=== PATIENT | female | born 1950 | race Caucasian/White ===

== ENCOUNTER → 2017-04-14 08:47 | Outpatient (CLI) | payer MEDICARE, OTHER | END | disposition home or self-care (01) | LOC: D.MRI 08:47 | DX: M51.36 Other intervertebral disc degeneration, lumbar region (principal) ==

== ENCOUNTER 2017-08-15 18:03 | Inpatient (IN) | payer MEDICARE, OTHER ==
[~2017-08-15] VITALS: Ht 160 cm; Wt 112.5 kg
--- NOTE | ~2017-08-15 | HP ---
PATIENT: SOFÍA COREAS MEDICAL RECORD: [id number] ACCOUNT: [id number] LOCATION:D.MS [id number] : 52 ADMISSION DATE: 08/18/17 HISTORY AND PHYSICAL EXAMINATION DATE OF ADMISSION: 08/18/2017 CHIEF COMPLAINT: Shortness of breath and cough. HISTORY OF PRESENT ILLNESS: This is a 67-year-old female who went to [facility] on Friday, 08/15 for cough, congestion. She had a chest x-ray that somehow was very abnormal. She was sent to [facility] for further treatment. Chest x-ray there was read by the radiologist is showing no acute abnormality seen. She was given albuterol updraft. She had blood work done showing essentially normal CBC and basic metabolic panel. Her glucose was elevated. She was given a shot in the ER. Sugar was over 400. She was given breathing treatments. Apparently at [facility], she was given a dose of ampicillin as well as a dose of steroids. She was released from [facility] and has been trying to take care of herself since then, but she presented today with O2 sat of 81% on room air. She does not have a history of asthma or emphysema, but with her ongoing problem she is admitted for hypoxia, acute bronchitis, and poorly controlled diabetes. PAST MEDICAL AND SURGICAL HISTORY: She has type 2 diabetes, hyperlipidemia, hypertension, history of obesity, and chronic lumbar pain. She has had a hysterectomy for noncancerous reasons, tonsillectomy, and gastric bypass surgery years ago. She had a colonoscopy on 07/26/[address] Murphy. ALLERGIES: AMBIEN. HABITS: She is a former smoker. Drinks wine only on occasion. No illicit drug work. SOCIAL HISTORY: She is a retired RN, lives alone, . FAMILY HISTORY: Father at 76 of COPD complications. Mother at 61 of ALS complications. Sister at 32 of cervical cancer. HOME MEDICATIONS: Lovastatin 20 mg at bedtime, metformin 1000 mg twice a day, citalopram 40 mg once a day, benazepril 40 mg once a day. PHYSICAL EXAMINATION: VITAL SIGNS: Blood pressure 100/60. GENERAL: She is morbidly obese. HEENT: Grossly within normal limits. NECK: Supple. No JVD or bruit. HEART: Regular rate and rhythm. LUNGS: Diminished breath sounds with occasional wheeze. ABDOMEN: Soft, obese, and nontender. EXTREMITIES: No pitting edema. ASSESSMENT: 1. Acute bronchitis. 2. Hypoxia. 3. Uncontrolled diabetes. HISTORY AND PHYSICAL [id number] SOFÍA COREAS PLAN: We will admit, give updrafts and oxygen. We will start IV Solu-Medrol. Check fingerstick blood sugar a.c. and h.s. Start insulin sliding scale. Other tests and procedures as warranted. TRANSINT:[id number] Voice Confirmation ID: [id number] DOCUMENT ID: [id number] ALEXUS ALANIS MD at 1842 CC: [id number] DICTATION DATE: 08/18/17 1442 RETAIL ASSOCIATE: 08/18/17 1544 ADM IN [facility] [address] [place] [address]
[~2017-08-15 18:03] MED LIST: BAYER CHEWABLE81 MG PO; CELEXA40 MG PO; GLUCOPHAGE1000 MG PO; IBUPROFEN800 MG PO; LOTENSIN40 MG PO; LOVASTATIN20 MG PO; MULTIPLE VITAMI1 TA1 PO; PROBIOTIC1 EAC1 PO; RESTORIL15 MG PO
[2017-08-15 20:20] LABS: ALBUMIN 3.4 g/dL (3.4-5.0); ALKALINE PHOSPHATASE 85 U/L (46-116); ALT (SGPT) 27 U/L (10-68); BILIRUBIN - TOTAL 0.23 mg/dL (0.2-1.3); CALC OSMOLALITY 286 mosm/kg (275-300); CALCIUM 9.2 mg/dL (8.5-10.1); CARBON DIOXIDE 27.3 mmol/L (21.0-32.0); CHLORIDE - SERUM 99 mmol/L (98-107); CREATININE - SERUM 1.2 mg/dL (0.6-1.3); POTASSIUM - SERUM 4.8 mmol/L (3.5-5.1); PROTEIN - SERUM 6.6 g/dL (6.4-8.2); SODIUM 135 mmol/L (136-145); UREA NITROGEN 21 mg/dL (7-18); eGFR NON AFRICAN AMERICAN 48 mL/min (90-120)
[2017-08-15 20:21] LABS: GLUCOSE 354 mg/dL (74-106)
[2017-08-15 20:23] LABS: BASOPHILS 0.3 % (0-2); EOSINOPHILS 1.9 % (0-7); HEMOGLOBIN 11.1 g/dL (12-16); IMMATURE GRANULOCYTES 0.2 % (0-5); LYMPHOCYTES 7.8 % (15-50); MCH 26.1 pg (26.0-34.0); MCHC 29.2 g/dL (31.0-37.0); MCV 89.2 fL (80.0-100.0); MEAN PLATELET VOLUME 10.5 fL (7.4-10.4); MONOCYTES 12.4 % (2-11); NEUTROPHILS 77.4 % (40-80); PLATELET COUNT 234 10x3/uL (130-400); RBC 4.26 10x6/uL (4.00-5.40); RDW 14.9 % (11.5-14.5); WBC 10.5 10x3/uL (4.8-10.8)
[2017-08-15 20:29] LABS: TROPONIN-I < 0.017 ng/mL (0.000-0.060)
[2017-08-18 15:15] VITALS: BP 112/65; BMI 44.0
[2017-08-18 22:34] VITALS: BP 109/53
[2017-08-19 04:48] VITALS: BP 116/58
[2017-08-19 08:43] VITALS: BP 123/51
[2017-08-19 12:45] VITALS: BP 112/55
[2017-08-19 13:15] VITALS: Ht 160 cm; Wt 112.5 kg
[2017-08-19 21:30] VITALS: BP 129/76
[2017-08-20 01:13] VITALS: BP 138/64
[2017-08-20 05:25] VITALS: BP 125/60
[2017-08-20 07:58] VITALS: BP 112/66
[2017-08-20 12:26] VITALS: BP 114/60
[2017-08-20 15:56] VITALS: BP 145/73
[2017-08-21] VITALS (7 sets, daily range): BP systolic 115–150; BP diastolic 63–78
[2017-08-22 01:30] VITALS: BP 125/69
[2017-08-22 05:21] VITALS: BP 137/59
[2017-08-22 05:57] LABS: BASOPHILS 0.2 % (0-2); EOSINOPHILS 0.2 % (0-7); HEMATOCRIT 37.2 % (36.0-48.0); IMMATURE GRANULOCYTES 5.1 % (0-5); MCH 25.5 pg (26.0-34.0); MCHC 29.6 g/dL (31.0-37.0); MCV 86.3 fL (80.0-100.0); MEAN PLATELET VOLUME 10.1 fL (7.4-10.4); MONOCYTES 10.4 % (2-11); NEUTROPHILS 48.1 % (40-80); PLATELET COUNT 273 10x3/uL (130-400); RBC 4.31 10x6/uL (4.00-5.40); RDW 15.1 % (11.5-14.5); WBC 12.8 10x3/uL (4.8-10.8)
[2017-08-22 06:18] LABS: ALBUMIN 2.8 g/dL (3.4-5.0); ANION GAP 10.6 mmol/L (8-16); BILIRUBIN - TOTAL 0.2 mg/dL (0.2-1.3); CARBON DIOXIDE 33.8 mmol/L (21.0-32.0); CREATININE - SERUM 1.1 mg/dL (0.6-1.3); POTASSIUM - SERUM 4.4 mmol/L (3.5-5.1); PROTEIN - SERUM 6.3 g/dL (6.4-8.2)
[2017-08-22 08:07] VITALS: BP 117/66
[2017-08-22 12:17] VITALS: BP 112/66
[2017-08-22 15:46] VITALS: BP 131/70
[2017-08-22 21:41] VITALS: BP 116/59
[2017-08-23 00:40] VITALS: BP 119/76
[2017-08-23 08:28] LABS: BASOPHILS 0.3 % (0-2); EOSINOPHILS 0.5 % (0-7); HEMATOCRIT 39.4 % (36.0-48.0); HEMOGLOBIN 11.7 g/dL (12-16); IMMATURE GRANULOCYTES 5.6 % (0-5); LYMPHOCYTES 36.3 % (15-50); MCH 25.7 pg (26.0-34.0); MCHC 29.7 g/dL (31.0-37.0); MCV 86.6 fL (80.0-100.0); MEAN PLATELET VOLUME 9.7 fL (7.4-10.4); MONOCYTES 8.8 % (2-11); NEUTROPHILS 48.5 % (40-80); PLATELET COUNT 278 10x3/uL (130-400); RBC 4.55 10x6/uL (4.00-5.40); RDW 15.1 % (11.5-14.5); WBC 11.9 10x3/uL (4.8-10.8)
[2017-08-23 08:48] LABS: ALBUMIN 2.9 g/dL (3.4-5.0); ANION GAP 11.8 mmol/L (8-16); BILIRUBIN - TOTAL 0.32 mg/dL (0.2-1.3); CALCIUM 9.1 mg/dL (8.5-10.1); CARBON DIOXIDE 33.5 mmol/L (21.0-32.0); CREATININE - SERUM 1.1 mg/dL (0.6-1.3); MAGNESIUM - SERUM 2.1 mg/dL (1.8-2.4); PHOSPHOROUS 4.8 mg/dL (2.5-4.9); POTASSIUM - SERUM 4.3 mmol/L (3.5-5.1); PROTEIN - SERUM 6.5 g/dL (6.4-8.2)
[2017-08-23 09:46] VITALS: BP 128/66
[2017-08-23 17:05] VITALS: BP 126/76
[2017-08-23 22:02] VITALS: BP 128/66
[2017-08-24 06:35] LABS: BASOPHILS 0.2 % (0-2); EOSINOPHILS 2.3 % (0-7); HEMATOCRIT 38.3 % (36.0-48.0); HEMOGLOBIN 11.3 g/dL (12-16); IMMATURE GRANULOCYTES 7.1 % (0-5); LYMPHOCYTES 38.9 % (15-50); MCH 25.8 pg (26.0-34.0); MCHC 29.5 g/dL (31.0-37.0); MCV 87.4 fL (80.0-100.0); MEAN PLATELET VOLUME 10.3 fL (7.4-10.4); MONOCYTES 8.5 % (2-11); PLATELET COUNT 250 10x3/uL (130-400); RBC 4.38 10x6/uL (4.00-5.40); WBC 11.1 10x3/uL (4.8-10.8)
[2017-08-24 07:09] LABS: ALBUMIN 2.8 g/dL (3.4-5.0); ANION GAP 11.3 mmol/L (8-16); BILIRUBIN - TOTAL 0.3 mg/dL (0.2-1.3); CALCIUM 8.7 mg/dL (8.5-10.1); CARBON DIOXIDE 31.1 mmol/L (21.0-32.0); MAGNESIUM - SERUM 1.9 mg/dL (1.8-2.4); PHOSPHOROUS 4.3 mg/dL (2.5-4.9); POTASSIUM - SERUM 4.4 mmol/L (3.5-5.1); PROTEIN - SERUM 5.7 g/dL (6.4-8.2)
[2017-08-24 09:07] VITALS: BP 132/75
[2017-08-24 12:40] VITALS: BP 126/57
[2017-08-24 17:09] VITALS: BP 106/72
[2017-08-24 21:40] VITALS: BP 139/83
[2017-08-25 00:56] VITALS: BP 125/68
[2017-08-25 04:23] VITALS: BP 106/56
[2017-08-25 08:15] VITALS: BP 106/66
[2017-08-25 12:53] VITALS: BP 112/52
[2017-08-25] MEDS ORDERED: ACTOS30 MG PO (14:06)
[2017-08-25 16:02] VITALS: BP 130/75
== END 2017-08-25 16:58 | disposition home or self-care (01) | DRG 189 ==
LOC: D.ER 18:03 → D.MS 08-18 14:49
PROVIDERS: Family Medicine; Internal Medicine Pulmonary Disease; Physician Assistant Medical
DX: J96.01 Acute respiratory failure with hypoxia (principal); J11.1 Influenza due to unidentified influenza virus with other respiratory manifestations; J20.9 Acute bronchitis, unspecified; I10 Essential (primary) hypertension; E11.65 Type 2 diabetes mellitus with hyperglycemia; B37.9 Candidiasis, unspecified

== ENCOUNTER → 2017-11-10 08:39 | Outpatient (CLI) | payer MEDICARE, OTHER ==
[2017-08-19 13:15] VITALS: BMI 43.9
[~2017-11-10 08:39] MED LIST changes: +ACTOS30 MG PO
== END | disposition home or self-care (01) ==
LOC: D.RT 08:39
DX: R06.02 Shortness of breath (principal)

== ENCOUNTER → 2017-11-18 13:51 | Outpatient (CLI) | payer MEDICARE, OTHER ==
[2017-08-19 13:15] VITALS: BMI 43.9
[2017-11-18 20:27] LABS: BASOPHILS 0.4 % (0-2); EOSINOPHILS 2.8 % (0-7); HEMATOCRIT 39.6 % (36.0-48.0); HEMOGLOBIN 11.9 g/dL (12-16); IMMATURE GRANULOCYTES 0.4 % (0-5); LYMPHOCYTES 29.4 % (15-50); MCH 26.4 pg (26.0-34.0); MCHC 30.1 g/dL (31.0-37.0); MCV 87.8 fL (80.0-100.0); MEAN PLATELET VOLUME 11.8 fL (7.4-10.4); MONOCYTES 11.5 % (2-11); NEUTROPHILS 55.5 % (40-80); PLATELET COUNT 303 10x3/uL (130-400); RBC 4.51 10x6/uL (4.00-5.40); RDW 17.1 % (11.5-14.5); WBC 7.2 10x3/uL (4.8-10.8)
== END | disposition home or self-care (01) ==
LOC: D.LABREF 13:51
PROVIDERS: Internal Medicine Pulmonary Disease
DX: R06.09 Other forms of dyspnea (principal)

== ENCOUNTER → 2018-08-10 08:03 | Outpatient (CLI) | payer MEDICARE, OTHER ==
[2017-08-19 13:15] VITALS: BMI 43.9
== END | disposition home or self-care (01) ==
LOC: D.MRI 08:00
DX: M51.36 Other intervertebral disc degeneration, lumbar region (principal)

== ENCOUNTER → 2018-08-21 08:12 | Outpatient (CLI) | payer MEDICARE, OTHER ==
[2017-08-19 13:15] VITALS: BMI 43.9
== END | disposition home or self-care (01) ==
LOC: D.MRI 08:12
DX: S22.089A Unspecified fracture of T11-T12 vertebra, initial encounter for closed fracture (principal); X58.XXXA Exposure to other specified factors, initial encounter

== ENCOUNTER → 2018-09-11 08:12 | Outpatient (CLI) | payer MEDICARE, OTHER ==
[2017-08-19 13:15] VITALS: BMI 43.9
--- NOTE | ~2018-09-11 | HEMODYNAMI ---
PATIENT:SOFÍA COREAS MEDICAL RECORD: [id number] : 52 LOCATION:ANNA MARIE ADMISSION DATE: 09/11/18 Generatedon:09/11/20189:49 Patient name: SOFÍA COREAS Patient #: [id number] SSN: : Date of study: 09/11/2018 Page: Of Hemodynamic Procedure Report Patient Data Patient Demographics Procedure consent was obtained First Name: SOFÍA Gender: Female Last Name: LYUDMILA : 1950 Patient #: [id number] Age: 68 year(s) Race: Unknown Additional ID: [id number] Contact details [address]: [address] [place] [address] State: [place] City: [place] Zip code: [address] Admission Admission Data Admission Date: 09/11/2018 Admission Time: 8:12 Procedure Procedure Types Cath Procedure Peripheral Cath Diagnostic Procedure Strike Warfare/Missile Systems Officer Peripheral Procedures Miscellaneous Epidural Steroid Injection Procedure Description Procedure Date Procedure Date: 09/11/2018 Procedure Start Time: 9:28 Procedure Staff Name Function Jhoan Milton MD Performing Physician Rosanna Soto RT Roof Truss Detailer Amanda Mckenzie RN Nurse Procedure Data Cath Procedure Fluoroscopy Diagnostic fluoroscopy Total fluoroscopy Time: 0.1 time: 0.1 min min Diagnostic fluoroscopy Total fluoroscopy dose: 2 dose: 2 mGy mGy Hemodynamics Rest Pre Cath Intra NCS Post Cath Procedure Log Time Note 9:08:18 KIT EPIDURAL CATHETERIZATION opened to sterile field. 9:08:26 Time tracking: Regular hours (M-F 7:00 - 5:00) 9:08:50 Patient received from Other to IR Alert and oriented. Tansferred to table in Prone position. 9:08:54 Signed procedure consent form obtained from patient. 9:08:58 Family in waiting room. 9:10:20 Is patient on blood thinner?Yes, 81MG ASA, OFF FOR 3 DAYS 9:11:02 Bilateral Lumbar was prepped with betadine and draped in sterile fashion. 9:11:05 9:28:06 Physician arrived 9:28:07 --------ALL STOP TIME OUT------ 9:28:08 Final Timeout: patient, procedure, and site verified with staff and physician. All members of the team are in agreement. 9:28:15 Procedure started. 9:28:15 Full Disclosure recording started 9:43:10 30MG/5ML CELESTONE INJECTED INTO SPINE FOR PAIN 9:43:14 Procedure ended.(Physican Out) 9:48:45 Fluoroscopy time 00.10 minutes. 9:48:51 Fluoroscopy dose: 2 mGy 9:48:51 Flurop Dose total: 2 9:48:58 Procedure and supply charges have been captured, reviewed, submitted and are correct. Device Usage Item Name Manufacture Quantity Catalog Hospital Part Current Minima l Lot# / Number Charge Number Stock Stock Serial# Code KIT EPIDURAL Teleflex 1 [id number] CATHETERIZATION Signature Audit Sinking Spring Stage Time Signature Unsigned Intra-Procedure 09/11/2018 Rosanna Soto 9:49:23 AM RT(R) [facility] [address] [place] [address]
== END | disposition home or self-care (01) ==
LOC: D.RAD 08:12
DX: M54.5 Low back pain (principal); S22.089A Unspecified fracture of T11-T12 vertebra, initial encounter for closed fracture; X58.XXXA Exposure to other specified factors, initial encounter

== ENCOUNTER → 2018-11-25 07:38 | Outpatient (CLI) | payer MEDICARE, OTHER ==
--- NOTE | 2018-08-22 07:15 | NUR ---
PATIENT IN BED WITH EYES CLOSED RESTING QUIETLY. NO COMPLAINTS OR SIGNS OF DISTRESS. FAMILY AT BEDSIDE.
[~2018-11-25 07:38] MED LIST changes: +ASCORBIC ACID500 MG PO; +DIFLUCAN150 MG PO; +FOLATE0.4 MG PO; +LEVAQUIN750 MG PO; +NEURONTIN 400400 MG PO; +PROMETHAZINE W473 ML PO; +VITAMIN E100 UNIT PO
== END | disposition home or self-care (01) ==
LOC: D.RT 07:38
DX: J44.9 Chronic obstructive pulmonary disease, unspecified (principal)

== ENCOUNTER 2019-02-07 13:57 | Inpatient (IN) | payer MEDICARE, OTHER ==
[2019-02-07] VITALS (9 sets, daily range): BP systolic 85–103; BP diastolic 36–84; BMI 45.7
[~2019-02-07] VITALS: Ht 160 cm; Wt 117.9 kg
[~2019-02-07 13:57] MED LIST changes: -ASCORBIC ACID500 MG PO; -DIFLUCAN150 MG PO; -FOLATE0.4 MG PO; -LEVAQUIN750 MG PO; -NEURONTIN 400400 MG PO; -PROMETHAZINE W473 ML PO; -VITAMIN E100 UNIT PO
[2019-02-07 14:37] LABS: HEMATOCRIT 33.7 % (36.0-48.0); HEMOGLOBIN 10.1 g/dL (12-16); MCH 26.1 pg (26.0-34.0); MCV 87.1 fL (80.0-100.0); PLATELET COUNT 273 10x3/uL (130-400); RBC 3.87 10x6/uL (4.00-5.40); RDW 15.5 % (11.5-14.5); WBC 20.7 10x3/uL (4.8-10.8)
[2019-02-07 14:52] LABS: APTT 27.3 SECONDS (22.8-39.4); INR 1.07 (0.85-1.17); PROTIME 13.4 SECONDS (11.6-15.0)
[2019-02-07 15:02] LABS: ALBUMIN 3.2 g/dL (3.4-5.0); ALKALINE PHOSPHATASE 57 U/L (46-116); ALT (SGPT) 21 U/L (10-68); BILIRUBIN - TOTAL 0.35 mg/dL (0.2-1.3); CALC OSMOLALITY 294 mosm/kg (275-300); CALCIUM 8.7 mg/dL (8.5-10.1); CARBON DIOXIDE 26.2 mmol/L (21.0-32.0); CHLORIDE - SERUM 106 mmol/L (98-107); CREATININE - SERUM 1.5 mg/dL (0.6-1.3); GLUCOSE 169 mg/dL (74-106); POTASSIUM - SERUM 4.8 mmol/L (3.5-5.1); PROTEIN - SERUM 6.5 g/dL (6.4-8.2); SODIUM 140 mmol/L (136-145); UREA NITROGEN 46 mg/dL (7-18); eGFR NON AFRICAN AMERICAN 37 mL/min (90-120)
[2019-02-07 15:04] LABS: UDS - AMPHET NEGATIVE QUAL (NEGATIVE); UDS - BARB NEGATIVE QUAL (NEGATIVE); UDS - BENZO NEGATIVE QUAL (NEGATIVE); UDS - COCAINE NEGATIVE QUAL (NEGATIVE); UDS - OPIATE POSITIVE QUAL (NEGATIVE); UDS - PCP NEGATIVE QUAL (NEGATIVE); UDS - THC NEGATIVE QUAL (NEGATIVE)
[2019-02-07 15:04] LABS: BASOPHILS 0 % (0-2); ELLIPTOCYTES OCC; EOSINOPHILS 0.1 % (0-7); IMMATURE GRANULOCYTES 0.4 % (0-5); LYMPHOCYTES 4 % (15-50); MONOCYTES 6 % (2-11); NEUTROPHILS 86 % (40-80); PLATELET ESTIMATE NORMAL; TEAR DROP CELLS OCC
[2019-02-07 15:13] LABS: APPEARANCE CLEAR (CLEAR); BILIRUBIN NEGATIVE (NEGATIVE); COLOR YELLOW (YELLOW); GLUCOSE NEGATIVE (NEGATIVE); KETONE NEGATIVE (NEGATIVE); NITRITE NEGATIVE (NEGATIVE); PROTEIN NEGATIVE (NEGATIVE); SPECIFIC GRAVITY 1.015 (1.005-1.020); UROBILINOGEN NORMAL (NORMAL)
[2019-02-07 15:14] LABS: CKMB 0.4 U/L (0.0-3.6); CREATINE KINASE 41 UL (21-215); MAGNESIUM - SERUM 1.6 mg/dL (1.8-2.4); THYROID STIMULATING HORMONE 1.13 uIU/mL (0.36-3.74); TROPONIN-I < 0.017 ng/mL (0.000-0.060)
--- NOTE | 2019-02-07 19:15 | NUR ---
Patient arrived from ER to 2303, ambulated to bed with cane and placed on monitor. Admission assessment completed per flowsheet, patient AO x4 calm and cooperative. S1/S2 noted NSR on telemetry, rythmic and regular. Breathing is even/unlabored on 6L via HFNC with O2 sat 97%, lung sounds clear bilateral upper with crackles mid and diminished lower. Abdomen is obese/soft with bowel sounds active x4, non-tender. Full ROM all extremities with all pulses palpable, skin warm/dry with cap refill < 3 sec. Denies pain or other needs at this time, see flowsheet for details. All VSS and will continue to monitor.
--- NOTE | 2019-02-07 20:30 | NUR ---
Paged Dr Crowe to notify of patient arrival/consult, awaiting return call.
--- NOTE | 2019-02-07 21:10 | NUR ---
HS meds given as ordered, patient provided sandwich tray at request. Denies pain or other needs at this time, all VSS and will continue to monitor.
--- NOTE | 2019-02-07 23:10 | NUR ---
Reassessment completed per flowsheet, no changes noted from previous assessment. Patient NSR on telemetry, rythmic and regular. Breathing is even/unlabored on 6L via NC with O2 sat 93%, lung sounds clear bilateral upper with crackles mid and diminished lower. All pulses palpable with cap refill < 3 sec, skin warm/dry. Denies pain or other needs at this time, see flowsheet for details. All VSS and will continue to monitor.
[2019-02-08] VITALS (11 sets, daily range): BP systolic 91–115; BP diastolic 47–75; Ht 160 cm; Wt 117.9 kg
--- NOTE | 2019-02-08 01:00 | NUR ---
Patient sleeping in bed with eyes closed, occasional productive cough noted. Slight brown/clear mucous noted, dry cough also observed. Denies pain or other needs at this time, all VSS and will continue to monitor.
--- NOTE | 2019-02-08 03:05 | NUR ---
Reassessment completed per flowsheet, no changes noted from previous assessment. S1/S2 noted NSR on telemetry, rythmic and regular. Breathing is even/unlabored on 5L via NC with O2 sat 92%, lung sounds clear bilateral upper with crackles mid and diminished lower. All pulses palpable with cap refill < 3 sec, skin warm/dry. Denies pain or other needs at this time, see flowsheet for details. All VSS and will continue to monitor.
[2019-02-08 04:12] LABS: BASOPHILS 0.1 % (0-2); EOSINOPHILS 0.2 % (0-7); HEMOGLOBIN 8.8 g/dL (12-16); IMMATURE GRANULOCYTES 0.4 % (0-5); LYMPHOCYTES 14.2 % (15-50); MCHC 29.3 g/dL (31.0-37.0); MCV 88.5 fL (80.0-100.0); MEAN PLATELET VOLUME 9.6 fL (7.4-10.4); MONOCYTES 7.8 % (2-11); NEUTROPHILS 77.3 % (40-80); PLATELET COUNT 233 10x3/uL (130-400); RBC 3.39 10x6/uL (4.00-5.40); RDW 15.7 % (11.5-14.5)
[2019-02-08 04:19] LABS: ANION GAP 11.1 mmol/L (8-16); CALCIUM 8.4 mg/dL (8.5-10.1); CARBON DIOXIDE 25.8 mmol/L (21.0-32.0); CREATININE - SERUM 1.4 mg/dL (0.6-1.3)
[2019-02-08 04:22] LABS: POTASSIUM - SERUM 3.9 mmol/L (3.5-5.1)
--- NOTE | 2019-02-08 05:00 | NUR ---
Patient resting in bed with eyes closed, no s/s of distress at this time. Denies pain or other needs, all VSS and will continue to monitor.
--- NOTE | 2019-02-08 07:00 | NUR ---
REPORT RECEIVED. ASSESSMENT COMPLETE PER FLOW SHEET. VSS. NO NEW CHANGES. WILL CONITNUE TO MONITOR
--- NOTE | 2019-02-08 09:10 | NUR ---
0900 MEDS ADM WITHOUT DIFFICULTY. PT STATED SHE TOOK ASA AND CELEBRYX AT 2100 AT HOME. WILL ADJUST TIMES
--- NOTE | 2019-02-08 11:00 | NUR ---
REASSESSMENT COMPLETE PER FLOW SHEET. VSS. NO NEW CHANGES WILL CONTINUE TO MONITOR
--- NOTE | 2019-02-08 12:10 | NUR ---
GIVEN LUNCH TRAY ATE 100%
--- NOTE | 2019-02-08 13:19 | NUR ---
PT ASSISTED UP OOB TO BEDSIDE COMMODE. 550 CC NOTED
--- NOTE | 2019-02-08 14:20 | NUR ---
DR JACKSON AT BEDSIDE. GIVEN UDPATE WILL CONTINUE TO MONITOR
--- NOTE | 2019-02-08 15:40 | NUR ---
FAMILY AT BEDSIDE. GIVEN UDPATE.
--- NOTE | 2019-02-08 17:00 | NUR ---
DR ALANIS CALLED GIVEN UDPATE. T ORDERS RECEIVED TO TRANSFER AT THIS TIME.
--- NOTE | 2019-02-08 18:30 | MORECARE ---
CASE MANAGEMENT DISCHARGE SUMMARY PATIENT: SOFÍA COREAS UNIT: [id number] ADM DATE: 02/07/19 AGE: 68 : 51 SEX: F ROOM/BED: D.2303 AUTHOR: SHAY ROSADO PHYSICIAN: REFERRING PHYSICIAN: ALEXUS ALANIS MD DATE OF SERVICE: 02/08/19 Discharge Plan Patient Name: SOFÍA COREAS Facility: [facility]:[place] : 1950 Planned Disposition: Home Anticipated Discharge Date: Discharge Date: Expected LOS: Initial Reviewer: [email or web address] Initial Review Date: 02/07/2019 Generated: 02/08/19 7:30 pm Patient Name: SOFÍA COREAS Page [id number] at 1830 All edits/amendments must be made on the electronic document DICTATION DATE: 02/08/191829 TUNGSTEN REFINER: SEAN 02/08/191829 RPT#: [id number] DC DATE: STATUS: ADM IN [facility] [address] [place] [address] END OF REPORT
--- NOTE | 2019-02-08 18:37 | MORECARE ---
CASE MANAGEMENT DISCHARGE SUMMARY PATIENT: SOFÍA COREAS UNIT: [id number] ADM DATE: 02/07/19 AGE: 68 : 51 SEX: F ROOM/BED: D.2303 AUTHOR: ASHLEEDOC PHYSICIAN: REFERRING PHYSICIAN: ALEXUS ALAINS MD DATE OF SERVICE: 02/08/19 Discharge Plan Patient Name: SOFÍA COREAS Facility: [facility]:[place] : 1950 Planned Disposition: Home Anticipated Discharge Date: Discharge Date: Expected LOS: Initial Reviewer: [email or web address] Initial Review Date: 02/07/2019 Generated: 02/08/19 7:37 pm Comments DCP- Discharge Planning Updated by [email or web address]: Pamella Arriaga on 02/08/19 5:[address] Patient Name: SOFÍA COREAS Admission Status: ER Accout number: [id number] Admission Date: 02-07-2019 : 1950 Admission Diagnosis: Attending: ALEXUS ALANIS Current LOS: 1 Anticipated DC Date: Planned Disposition: Home Primary Insurance: MEDICARE A & B Discharge Planning Comments: CM met with patient to complete initial dc planning assessment. CM educated patient on the CM role and verbal consent given by patient to complete assessment. Patient lives at home with her son and [id number] where she is independent with her care. At discharge patient plans to return home and feels this is a safe discharge. CM discussed availability of home health, rehab services, and medical equipment. Her son will drive her home. Patient has a nebulizer and home o2. Patient denied known discharge needs at this time. CM will continue to follow and will assist as needed with dc plans/needs. Truck Rental Service Attendant: Pamella Arriaga DCPIA - Discharge Planning Initial Assessment Updated by [email or web address]: Pamella Arriaga on 02/08/19 6:30 pm * Is the patient Alert and Oriented? Yes * How many steps to enter\exit or inside your home? * PCP ANNABELLE * [facility] * Preadmission Environment Home with Family * ADLs Independent * Equipment Cane * Other Equipment HOME 02 AND PORTABLE 02, NEBULIZER, CANE * List name and contact numbers for known caregivers / representatives who currently or will assist patient after discharge: HUE COREAS - SON - [phone] * Verbal permission to speak to the caregivers and representatives has been obtained from the patient. N/A * Community resources currently utilized None * Additional services required to return to the preadmission environment? No * Can the patient safely return to the preadmission environment? Yes * Has this patient been hospitalized within the prior 30 days at any hospital? No Last DP export: 02/08/19 5:30 p Patient Name: SOFÍA COREAS Page [id number] at 1837 All edits/amendments must be made on the electronic document DICTATION DATE: 02/08/191836 IRS AGENT: SEAN 02/08/191836 RPT#: [id number] DC DATE: STATUS: ADM IN [facility] [address] [place] [address] END OF REPORT
--- NOTE | 2019-02-08 19:25 | NUR ---
RECEIVED PATIENT FROM ICU. PATIENT IS A&OX4 SITTING IN CHAIR. PATIENT BREATHING IS EVEN AND UNLABORED. VITALS ARE STABLE. PATIENT HAS IV TO LT FA, DRSG IS C/D/I AND PATENT WITH NS@125ML/HR. PATIENT IS COMPLAINING OF IV SITE PAIN, HAS REQUESTED IT BE REMOVED SO SHE CAN SHOWER, AND THEN TO RESITE IT. PATIENT DENIES NEEDS AT THIS TIME. WILL CPOC. CL IN REACH, BED LOCKED AND IN LOWEST POSITION. WILL CTM.
--- NOTE | 2019-02-08 21:26 | NUR ---
PATIENT REQUESTED IV BE RESITED BECAUSE IT WAS UNCOMFORTABLE. 3 ATTEMPTS MADE WITH NO SUCCESS. CALLED FOR ANOTHER NURSE TO TRY. PATIENT DENIES NEEDS AT THIS TIME. CL IN REACH, BED LOCKED AND IN LOWEST POSITION. WILL CTM.
--- NOTE | 2019-02-09 00:11 | NUR ---
PATIENT C/O HEADACHE THAT SHE'S HAD FOR "24 HOURS". INFORMED PATIENT SHE HAS MOTRIN ORDERED PRN, SHE SAID SHE'D TAKE IT. PATIENT IS VERY UNHAPPY WITH THE "HARDNESS" OF HER BED AND SHE PEELED AN EKG STICKER OFF HER BED RAILING AND SAID SHE WILL NOT SLEEP IN THAT BED BECAUSE "IT HASN'T BEEN CLEANED". ASSURED THE PATIENT THAT THE BED HAD BEEN CLEANED. PATIENT DENIES FURTHER NEEDS. PATIENT STILL DOES NOT HAVE IV. PATIENT IS SITTING UP IN CHAIR. CL IN PLACE. WILL CTM.
[2019-02-09 00:32] VITALS: BP 134/51
--- NOTE | 2019-02-09 02:57 | NUR ---
I AGREE WITH THE INSTRUCTION ASSISTANT PRINCIPAL ASSESSMENT COMPLETED THIS SHIFT.
[2019-02-09 04:00] VITALS: BP 112/56
--- NOTE | 2019-02-09 05:00 | NUR ---
PATIENTS IV RESITED LT FA, X2 ATTEMPTS. DRSG C/D/I, NS RUNNING 125ML/HR. CL IN REACH, BED LOCKED AND IN LOWEST POSITION. PATIENT DENIES FURTHER NEEDS AT THIS TIME. WILL CTM.
--- NOTE | 2019-02-09 07:01 | NUR ---
ROUNDING DONE WITH PATIENT SITTING UP IN CHAIR AT THIS TIME. GLASSES ON. ON ROOM AIR. LEFT FA PIV SEEN WITH NS INFUSING AT 125 CC/HR. C/O OF HEADACHE STILL, MEDICATED LAST NIGHT. PATIENT REPORTS THAT SHE KEEPS A HEADACHE. WILL CPOC.
[2019-02-09 07:41] VITALS: BP 118/43
--- NOTE | 2019-02-09 08:59 | NUR ---
IV TO LEFT INNER FA IS INFILTRATING. CATH TIP REMOVED WITH TIP INTACT. I ATTEMPTED RE-SITE WITH 22 G TO RIGHT FA, NO SUCCESS.
--- NOTE | 2019-02-09 09:09 | NUR ---
I CALLED STEVEN WOODARD, JUNIOR SYSTEMS ENGINEER ACCESS NURSE TO SITE IV. STATES SHE WILL BE DOWN IN A BIT.
[2019-02-09 09:34] LABS: BASOPHILS 0.3 % (0-2); HEMATOCRIT 29.7 % (36.0-48.0); HEMOGLOBIN 8.9 g/dL (12-16); IMMATURE GRANULOCYTES 0.4 % (0-5); LYMPHOCYTES 17.5 % (15-50); MCH 26.2 pg (26.0-34.0); MCV 87.4 fL (80.0-100.0); MEAN PLATELET VOLUME 9.4 fL (7.4-10.4); MONOCYTES 11.4 % (2-11); NEUTROPHILS 66.4 % (40-80); PLATELET COUNT 202 10x3/uL (130-400); RDW 16.1 % (11.5-14.5)
--- NOTE | 2019-02-09 09:35 | NUR ---
STEVEN WOODARD, STORAGE GARAGE ATTENDANT NURSE TO OBTAIN IV TO RIGHT FA WITH 22 G X 1 STICK.
[2019-02-09 09:38] LABS: WBC 9.6 10x3/uL (4.8-10.8)
[2019-02-09 09:48] LABS: ANION GAP 11.3 mmol/L (8-16); BILIRUBIN - TOTAL 0.28 mg/dL (0.2-1.3); CALCIUM 9.1 mg/dL (8.5-10.1); CARBON DIOXIDE 26.7 mmol/L (21.0-32.0); PROTEIN - SERUM 6.4 g/dL (6.4-8.2)
[2019-02-09 11:25] VITALS: BP 130/54
--- NOTE | 2019-02-09 13:50 | NUR ---
REFUSED SHOWER FOR TODAY.
--- NOTE | 2019-02-09 14:57 | NUR ---
TO RADIOLOGY VIA WHEELCHAIR AND PORTABLE OXYGEN.
--- NOTE | 2019-02-09 15:11 | NUR ---
RETURNS FROM RADIOLOGY. ON NASAL CANNULA O2.
[2019-02-09 15:36] VITALS: BP 143/52
--- NOTE | 2019-02-09 16:51 | NUR ---
SITTING UP IN CHAIR, DENIES ANY NEEDS AT THIS TIME. EATING SUPPER.
--- NOTE | 2019-02-09 19:30 | NUR ---
RECEIVED REPORT. PT UP IN CHAIR READING. VOICES C/O THAT PIV CONTINUES TO ITCH. RR EVEN AND UNLABORED. NO S/S OF DISTRESS NOTED AT THIS TIME. WILL CPOC.
[2019-02-09 20:00] VITALS: BP 134/65
[2019-02-10 00:20] VITALS: BP 137/51
[2019-02-10 04:31] VITALS: BP 126/60
[2019-02-10 07:20] VITALS: BP 133/71
--- NOTE | 2019-02-10 08:00 | NUR ---
AROUSES EASILY FOR VS AND ASSESSMENT.DENIES NEEDS AT PRESENT TIME.IV INFUSING WELL TO RIGHT FOREARM VIA PUMP.IS ALERT AND ORIENTED.BED IN LOW POSITION,CL IN EASY REACH.WILL CONTINUE WITH CURRENT PLAN OF CARE.
--- NOTE | 2019-02-10 14:48 | MORECARE ---
CASE MANAGEMENT DISCHARGE SUMMARY PATIENT: SOFÍA COREAS UNIT: [id number] ADM DATE: 02/07/19 AGE: 68 : 51 SEX: F ROOM/BED: D.1204 AUTHOR: SHAY ROSADO PHYSICIAN: REFERRING PHYSICIAN: ALEXUS ALANIS MD DATE OF SERVICE: 02/10/19 Discharge Plan Patient Name: SOFÍA COREAS Facility: [facility]:[place] : 1950 Planned Disposition: Home Anticipated Discharge Date: Discharge Date: Expected LOS: Initial Reviewer: [email or web address] Initial Review Date: 02/07/2019 Generated: 02/10/19 3:48 pm Comments DCP- Discharge Planning Updated by [email or web address]: Wilma Davidson on 02/10/19 1:[address] Patient Name: SOFÍA COREAS Admission Status: ER Accout number: [id number] Admission Date: 02-07-2019 : 1950 Admission Diagnosis:SEPSIS, UNSPECIFIED ORGANISM Attending: ALEXUS ALANIS Current LOS: 3 Anticipated DC Date: Planned Disposition: Home Primary Insurance: MEDICARE A & B Discharge Planning Comments: PATIENT STATES HAS 02 AND NEBS AT HOME. SHOULD DC TOMORROW AND HAS NO NEEDS. 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 CM TO FOLLOW AND ASSIST. Resistor Testing Machine Operator: Wilma Davidson DCP- Discharge Planning Updated by [email or web address]: Pamella Arriaga on 02/08/19 5:[address] Patient Name: SOFÍA COREAS Admission Status: ER Accout number: [id number] Admission Date: 02-07-2019 : 1950 Admission Diagnosis: Attending: ALEXUS ALANIS Current LOS: 1 Anticipated DC Date: Planned Disposition: Home Primary Insurance: MEDICARE A & B Discharge Planning Comments: CM met with patient to complete initial dc planning assessment. CM educated patient on the CM role and verbal consent given by patient to complete assessment. Patient lives at home with her son and [id number] where she is independent with her care. At discharge patient plans to return home and feels this is a safe discharge. CM discussed availability of home health, rehab services, and medical equipment. Her son will drive her home. Patient has a nebulizer and home o2. Patient denied known discharge needs at this time. CM will continue to follow and will assist as needed with dc plans/needs. Resistor Testing Machine Operator: Pamella Arriaga DCPIA - Discharge Planning Initial Assessment Updated by [id number]: Pamella Arriaga on 02/08/19 6:30 pm * Is the patient Alert and Oriented? Yes * How many steps to enter\exit or inside your home? * PCP ANNABELLE * [facility]acy [facility] * Preadmission Environment Home with Family * ADLs Independent * Equipment Cane * Other Equipment HOME 02 AND PORTABLE 02, NEBULIZER, CANE * List name and contact numbers for known caregivers / representatives who currently or will assist patient after discharge: HUE COREAS - [facility] - [phone] * Verbal permission to speak to the caregivers and representatives has been obtained from the patient. N/A * Community resources currently utilized None * Additional services required to return to the preadmission environment? No * Can the patient safely return to the preadmission environment? Yes * Has this patient been hospitalized within the prior 30 days at any hospital? No Coverage Notice Reviewer: [email or web address] Dalila Davidson Notice Issued Date-Time: 02/10/2019 14:43 Notice Type: IM Discharge Notice Notice Delivered To: Patient Relationship to Patient: Cotton Farmer Name: Delivery Method: HAND - Hand Delivered Michelle Days: Prior Verbal Notification: Recipient Understood Notice: Yes Recipient Signature: Yes Med Rec Note Co-signed by Attending: Coverage Notice Comment: Last DP export: 02/08/19 5:37 p Patient Name: SOFÍA COREAS Page [id number] at 1448 All edits/amendments must be made on the electronic document DICTATION DATE: 02/10/198 THERAPIST PHYSICAL: SEAN 02/10/19 1448 RPT#: [id number] DC DATE: STATUS: ADM IN [facility] [address] [place] [address] END OF REPORT
[2019-02-10 16:00] VITALS: BP 138/58
--- NOTE | 2019-02-10 19:30 | NUR ---
RECEIVED PT. UP IN CHAIR. RR EVEN AND UNLABORED. NO NEEDS EXPRESSED. WILL CPOC.
[2019-02-10 19:58] VITALS: BP 138/68
[2019-02-11 00:32] VITALS: BP 142/64
[2019-02-11 05:43] VITALS: BP 119/41
[2019-02-11 06:51] LABS: BASOPHILS 0.4 % (0-2); EOSINOPHILS 4.7 % (0-7); HEMATOCRIT 30.1 % (36.0-48.0); HEMOGLOBIN 8.9 g/dL (12-16); IMMATURE GRANULOCYTES 0.4 % (0-5); LYMPHOCYTES 28.9 % (15-50); MCHC 29.6 g/dL (31.0-37.0); MEAN PLATELET VOLUME 10.2 fL (7.4-10.4); MONOCYTES 12.1 % (2-11); NEUTROPHILS 53.5 % (40-80); PLATELET COUNT 234 10x3/uL (130-400); RBC 3.42 10x6/uL (4.00-5.40); RDW 16.3 % (11.5-14.5)
[2019-02-11 06:56] LABS: ANION GAP 11.7 mmol/L (8-16); CARBON DIOXIDE 26.4 mmol/L (21.0-32.0); POTASSIUM - SERUM 4.1 mmol/L (3.5-5.1)
--- NOTE | 2019-02-11 07:31 | NUR ---
The patient is awake and alert, she is oriented and pleasant and says she feels well except she could not get comfortable last night. She does have bruises to her arms from lab draw and IV's. Denies needs.
--- NOTE | 2019-02-11 08:18 | NUR ---
The patient noticed her IV infiltrated and she said " I hate to say this but the IV feels hard." Did stop the IV and pulled the catheter. Will call IV nurse.
[2019-02-11 08:30] VITALS: BP 127/41
[2019-02-11] MEDS ORDERED: LEVAQUIN750 MG PO (08:59)
[2019-02-11] MEDS ORDERED: DIFLUCAN150 MG PO (09:00)
[2019-02-11] MEDS ORDERED: PROMETHAZINE W473 ML PO (09:02)
--- NOTE | 2019-02-11 11:50 | MORECARE ---
CASE MANAGEMENT DISCHARGE SUMMARY PATIENT: SOFÍA COREAS UNIT: [id number] ADM DATE: 02/07/19 AGE: 68 : 51 SEX: F ROOM/BED: D.1204 AUTHOR: SHAY ROSADO PHYSICIAN: REFERRING PHYSICIAN: ALEXUS ALANIS MD DATE OF SERVICE: 02/11/19 Discharge Plan Patient Name: SOFÍA COREAS Facility: [facility]:[place] : 1950 Planned Disposition: Home Anticipated Discharge Date: 02/11/19 Discharge Date: Expected LOS: 4 Initial Reviewer: [email or web address] Initial Review Date: 02/07/2019 Generated: 02/11/19 12:49 pm Comments DCP- Discharge Planning Updated by [id number]: Wilma Davidson on 02/10/19 1:[address] Patient Name: SOFÍA COREAS Admission Status: ER Accout number: [id number] Admission Date: 02-07-2019 : 1950 Admission Diagnosis:SEPSIS, UNSPECIFIED ORGANISM Attending: ALEXUS ALANIS Current LOS: 3 Anticipated DC Date: Planned Disposition: Home Primary Insurance: MEDICARE A & B Discharge Planning Comments: PATIENT STATES HAS 02 AND NEBS AT HOME. SHOULD DC TOMORROW AND HAS NO NEEDS. 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 CM TO FOLLOW AND ASSIST. Sand Digger: Wilma Davidson DCP- Discharge Planning Updated by [email or web address]: Pamella Arriaga on 02/08/19 5:[address] Patient Name: SOFÍA COREAS Admission Status: ER Accout number: [id number] Admission Date: 02-07-2019 : 1950 Admission Diagnosis: Attending: ALEXUS ALANIS Current LOS: 1 Anticipated DC Date: Planned Disposition: Home Primary Insurance: MEDICARE A & B Discharge Planning Comments: CM met with patient to complete initial dc planning assessment. CM educated patient on the CM role and verbal consent given by patient to complete assessment. Patient lives at home with her son and [id number] where she is independent with her care. At discharge patient plans to return home and feels this is a safe discharge. CM discussed availability of home health, rehab services, and medical equipment. Her son will drive her home. Patient has a nebulizer and home o2. Patient denied known discharge needs at this time. CM will continue to follow and will assist as needed with dc plans/needs. Sand Digger: Pamella Romeror DCPIA - Discharge Planning Initial Assessment Updated by [email or web address]: Pamella Arriaga on 02/08/19 6:30 pm * Is the patient Alert and Oriented? Yes * How many steps to enter\exit or inside your home? * PCP ANNABELLE * [facility] * Preadmission Environment Home with Family * ADLs Independent * Equipment Cane * Other Equipment HOME 02 AND PORTABLE 02, NEBULIZER, CANE * List name and contact numbers for known caregivers / representatives who currently or will assist patient after discharge: HUE COREAS - [facility] - [phone] * Verbal permission to speak to the caregivers and representatives has been obtained from the patient. N/A * Community resources currently utilized None * Additional services required to return to the preadmission environment? No * Can the patient safely return to the preadmission environment? Yes * Has this patient been hospitalized within the prior 30 days at any hospital? No Coverage Notice Reviewer: [email or web address] Dalila Davidson Notice Issued Date-Time: 02/10/2019 14:43 Notice Type: IM Discharge Notice Notice Delivered To: Patient Relationship to Patient: Caramel Maker Name: Delivery Method: HAND - Hand Delivered Michelle Days: Prior Verbal Notification: Recipient Understood Notice: Yes Recipient Signature: Yes Med Rec Note Co-signed by Attending: Coverage Notice Comment: Last DP export: 02/10/19 1:48 p Patient Name: SOFÍA COREAS Page [id number] at 1150 All edits/amendments must be made on the electronic document DICTATION DATE: 02/11/19 1149 MANAGER OF FINANCE: SEAN 02/11/19 1149 RPT#: [id number] DC DATE: STATUS: ADM IN [facility] [address] [place] [address] END OF REPORT
--- NOTE | 2019-02-11 11:56 | MORECARE ---
CASE MANAGEMENT DISCHARGE SUMMARY PATIENT: SOFÍA COREAS UNIT: [id number] ADM DATE: 02/07/19 AGE: 68 : 51 SEX: F ROOM/BED: D.1204 AUTHOR: SHAY ROSADO PHYSICIAN: REFERRING PHYSICIAN: ALEXUS ALANIS MD DATE OF SERVICE: 02/11/19 Discharge Plan Patient Name: SOFÍA COREAS Facility: [facility]:[place] : 1950 Planned Disposition: Home Anticipated Discharge Date: 02/11/19 Discharge Date: Expected LOS: 4 Initial Reviewer: [email or web address] Initial Review Date: 02/07/2019 Generated: 02/11/19 12:56 pm Comments DCP- Discharge Planning Updated by [email or web address]: Paola Corrales on 02/11/19 10:[address] PATIENT FOR DISCHARGE TO HOME TODAY. HER SON WILL PROVIDE TRANSPORTATION. DENIES ANY NEEDS. SHE IS CONSIDERING A WHEELCHAIR BUT WANTS TO WAIT TO SEE HOW SHE GETS AROUND. HAS A CANE. DOES NOT WISH TO HAVE A WALKER. SHE WILL DISCUSS W/ DR ALANIS IF NECESSARY. HAS A SHOWER BENCH AT HOME IN ADDITION TO THE PREVIOUSLY NOTED DME. ANXIOUS FOR DISCHARGE TO HOME TODAY. DCP- Discharge Planning Updated by [email or web address]: Wilma Davidson on 02/10/19 1:[address] Patient Name: SOFÍA COREAS Admission Status: ER Accout number: [id number] Admission Date: 02-07-2019 : 1950 Admission Diagnosis:SEPSIS, UNSPECIFIED ORGANISM Attending: ALEXUS ALANIS Current LOS: 3 Anticipated DC Date: Planned Disposition: Home Primary Insurance: MEDICARE A & B Discharge Planning Comments: PATIENT STATES HAS 02 AND NEBS AT HOME. STATES SHOULD DC TOMORROW AND HAS NO NEEDS. 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 CM TO FOLLOW AND ASSIST. Data Entry Manager: Wilma Davidson DCP- Discharge Planning Updated by [email or web address]: Pamella Arriaga on 02/08/19 5:[address] Patient Name: SOFÍA COREAS Admission Status: ER Accout number: [id number] Admission Date: 02-07-2019 : 1950 Admission Diagnosis: Attending: ALEXUS ALANIS Current LOS: 1 Anticipated DC Date: Planned Disposition: Home Primary Insurance: MEDICARE A & B Discharge Planning Comments: CM met with patient to complete initial dc planning assessment. CM educated patient on the CM role and verbal consent given by patient to complete assessment. Patient lives at home with her son and [id number] where she is independent with her care. At discharge patient plans to return home and feels this is a safe discharge. CM discussed availability of home health, rehab services, and medical equipment. Her son will drive her home. Patient has a nebulizer and home o2. Patient denied known discharge needs at this time. CM will continue to follow and will assist as needed with dc plans/needs. Data Entry Manager: Pamella Arriaga DCPIA - Discharge Planning Initial Assessment Updated by [email or web address]: Pamella Arriaga on 02/08/19 6:30 pm * Is the patient Alert and Oriented? Yes * How many steps to enter\exit or inside your home? * PCP ANNABELLE * [facility] * Preadmission Environment Home with Family * ADLs Independent * Equipment Cane * Other Equipment HOME 02 AND PORTABLE 02, NEBULIZER, CANE * List name and contact numbers for known caregivers / representatives who currently or will assist patient after discharge: HUE COREAS - SON - [phone] * Verbal permission to speak to the caregivers and representatives has been obtained from the patient. N/A * Community resources currently utilized None * Additional services required to return to the preadmission environment? No * Can the patient safely return to the preadmission environment? Yes * Has this patient been hospitalized within the prior 30 days at any hospital? No Coverage Notice Reviewer: [email or web address] Dalila Davidson Notice Issued Date-Time: 02/10/2019 14:43 Notice Type: IM Discharge Notice Notice Delivered To: Patient Relationship to Patient: Senior Talent Management Consultant Name: Delivery Method: HAND - Hand Delivered Michelle Days: Prior Verbal Notification: Recipient Understood Notice: Yes Recipient Signature: Yes Med Rec Note Co-signed by Attending: Coverage Notice Comment: Last DP export: 02/11/19 10:49 a Patient Name: SOFÍA COREAS Page [phone] at 1156 All edits/amendments must be made on the electronic document DICTATION DATE: 02/11/19 4423 DRYWALL APPLICATION SUPERVISOR: DM 02/11/19 1155 RPT#: [id number] DC DATE: STATUS: ADM IN [facility] [address] [place] [address] END OF REPORT
--- NOTE | 2019-02-11 12:32 | NUR ---
D/C'd the patient's IV, went over all d/c orders and plan with the patient. She is awaiting for her ride before she can leave.
--- NOTE | 2019-02-11 13:21 | NUR ---
DISCHARGE INSTRUCTIONS REVIEWED WITH PT AND ALL QUESTIONS ANSWERED. PIV REMOVED WITH CATHETER TIP INTACT. PT STATES HER RIDE WILL BE HERE AROUND 1430
--- NOTE | 2019-02-11 14:41 | NUR ---
Called for w/c transport. Patient says her ride is on their way.
--- NOTE | 2019-02-11 14:49 | NUR ---
The escort service did come and transport her to her vehicle. She is now d/c'd off of the unit.
--- NOTE | 2019-02-11 16:47 | MORECARE ---
CASE MANAGEMENT DISCHARGE SUMMARY PATIENT: SOFÍA COREAS UNIT: [id number] ADM DATE: 02/07/19 AGE: 68 : 51 SEX: F ROOM/BED: D.1204 AUTHOR: ASHLEEDOC PHYSICIAN: REFERRING PHYSICIAN: ALEXUS ALANIS MD DATE OF SERVICE: 02/11/19 Discharge Plan Patient Name: SOFÍA COREAS Facility: [facility]:[place] : 1950 Planned Disposition: Home Anticipated Discharge Date: 02/11/19 Discharge Date: 02/11/2019 Expected LOS: 4 Initial Reviewer: [email or web address] Initial Review Date: 02/07/2019 Generated: 02/11/19 5:47 pm Comments DCP- Discharge Planning Updated by [email or web address]: Paola Corrales on 02/11/19 10:[address] PATIENT FOR DISCHARGE TO HOME TODAY. HER SON WILL PROVIDE TRANSPORTATION. DENIES ANY NEEDS. SHE IS CONSIDERING A WHEELCHAIR BUT WANTS TO WAIT TO SEE HOW SHE GETS AROUND. HAS A CANE. DOES NOT WISH TO HAVE A WALKER. SHE WILL DISCUSS W/ DR ALANIS IF NECESSARY. HAS A SHOWER BENCH AT HOME IN ADDITION TO THE PREVIOUSLY NOTED DME. ANXIOUS FOR DISCHARGE TO HOME TODAY. DCP- Discharge Planning Updated by [email or web address]: Wilma Davidson on 02/10/19 1:[address] Patient Name: SOFÍA COREAS Admission Status: ER Accout number: [id number] Admission Date: 02-07-2019 : 1950 Admission Diagnosis:SEPSIS, UNSPECIFIED ORGANISM Attending: ALEXUS ALANIS Current LOS: 3 Anticipated DC Date: Planned Disposition: Home Primary Insurance: MEDICARE A & B Discharge Planning Comments: PATIENT STATES HAS 02 AND NEBS AT HOME. STATES SHOULD DC TOMORROW AND HAS NO NEEDS. 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 CM TO FOLLOW AND ASSIST. Shipping Hand: Wilma Davidson DCP- Discharge Planning Updated by [email or web address]: Pamella Arriaga on 02/08/19 5:[address] Patient Name: SOFÍA COREAS Admission Status: ER Accout number: [id number] Admission Date: 02-07-2019 : 1950 Admission Diagnosis: Attending: ALEXUS ALANIS Current LOS: 1 Anticipated DC Date: Planned Disposition: Home Primary Insurance: MEDICARE A & B Discharge Planning Comments: CM met with patient to complete initial dc planning assessment. CM educated patient on the CM role and verbal consent given by patient to complete assessment. Patient lives at home with her son and [id number] where she is independent with her care. At discharge patient plans to return home and feels this is a safe discharge. CM discussed availability of home health, rehab services, and medical equipment. Her son will drive her home. Patient has a nebulizer and home o2. Patient denied known discharge needs at this time. CM will continue to follow and will assist as needed with dc plans/needs. Shipping Hand: Pamella Arriaga DCPIA - Discharge Planning Initial Assessment Updated by [email or web address]: Pamella Arriaga on 02/08/19 6:30 pm * Is the patient Alert and Oriented? Yes * How many steps to enter\exit or inside your home? * PCP ANNABELLE * [facility] * Preadmission Environment Home with Family * ADLs Independent * Equipment Cane * Other Equipment HOME 02 AND PORTABLE 02, NEBULIZER, CANE * List name and contact numbers for known caregivers / representatives who currently or will assist patient after discharge: HUE COREAS - SON - [phone] * Verbal permission to speak to the caregivers and representatives has been obtained from the patient. N/A * Community resources currently utilized None * Additional services required to return to the preadmission environment? No * Can the patient safely return to the preadmission environment? Yes * Has this patient been hospitalized within the prior 30 days at any hospital? No Coverage Notice Reviewer: [email or web address] Dalila Davidson Notice Issued Date-Time: 02/10/2019 14:43 Notice Type: IM Discharge Notice Notice Delivered To: Patient Relationship to Patient: Superintendent Generating Plant Name: Delivery Method: HAND - Hand Delivered Michelle Days: Prior Verbal Notification: Recipient Understood Notice: Yes Recipient Signature: Yes Med Rec Note Co-signed by Attending: Coverage Notice Comment: Last DP export: 02/11/19 10:56 a Patient Name: SOFÍA COREAS Page [id number] at 1647 All edits/amendments must be made on the electronic document DICTATION DATE: 02/11/191646 PERSONAL COMPUTER NETWORK ENGINEER: SEAN 02/11/191646 RPT#: [id number] DC DATE:02/11/19 STATUS: DIS IN [facility] [address] [place] [address] END OF REPORT
== END 2019-02-11 14:50 | disposition home or self-care (01) | DRG 871 ==
LOC: D.ER 13:57 → D.ICU 17:49 → D.M3 17:49
PROVIDERS: Emergency Medicine; ADMIT Family Medicine; ATTEND Family Medicine
DX: A41.9 Sepsis, unspecified organism (principal); J18.9 Pneumonia, unspecified organism; E11.22 Type 2 diabetes mellitus with diabetic chronic kidney disease; I12.9 Hypertensive chronic kidney disease with stage 1 through stage 4 chronic kidney disease, or unspecified chronic kidney disease; N18.9 Chronic kidney disease, unspecified; E86.9 Volume depletion, unspecified

== ENCOUNTER 2019-02-21 10:50 | Inpatient (IN) | payer MEDICARE, OTHER ==
[~2019-02-21] VITALS: Ht 160 cm; Wt 118.2 kg
[~2019-02-21 10:50] MED LIST changes: +DIFLUCAN150 MG PO; +LEVAQUIN750 MG PO; +PROMETHAZINE W473 ML PO
[2019-02-21 11:37] LABS: BASOPHILS 0.1 % (0-2); EOSINOPHILS 0.3 % (0-7); HEMATOCRIT 32.4 % (36.0-48.0); HEMOGLOBIN 9.4 g/dL (12-16); IMMATURE GRANULOCYTES 0.2 % (0-5); LYMPHOCYTES 4.6 % (15-50); MCH 25.9 pg (26.0-34.0); MCV 89.3 fL (80.0-100.0); MEAN PLATELET VOLUME 9.2 fL (7.4-10.4); MONOCYTES 7.2 % (2-11); NEUTROPHILS 87.6 % (40-80); PLATELET COUNT 236 10x3/uL (130-400); RBC 3.63 10x6/uL (4.00-5.40); RDW 15.8 % (11.5-14.5); WBC 16.4 10x3/uL (4.8-10.8)
[2019-02-21 11:48] LABS: ALBUMIN 3.3 g/dL (3.4-5.0); ANION GAP 14.8 mmol/L (8-16); BILIRUBIN - TOTAL 0.39 mg/dL (0.2-1.3); CALCIUM 8.6 mg/dL (8.5-10.1); CARBON DIOXIDE 27.1 mmol/L (21.0-32.0); CREATININE - SERUM 1.1 mg/dL (0.6-1.3); POTASSIUM - SERUM 4.9 mmol/L (3.5-5.1); PROTEIN - SERUM 6.6 g/dL (6.4-8.2)
[2019-02-21 12:40] VITALS: BP 152/84
[2019-02-21 15:10] VITALS: BP 116/66
[2019-02-21 16:26] VITALS: BP 101/52
[2019-02-21] MEDS ORDERED: ASCORBIC ACID500 MG PO (17:12)
[2019-02-21] MEDS ORDERED: FOLATE0.4 MG PO (17:14)
[2019-02-21] MEDS ORDERED: VITAMIN E100 UNIT PO (17:14)
[2019-02-21 17:29] VITALS: BP 117/73; Ht 160 cm; Wt 118.2 kg
--- NOTE | 2019-02-21 19:00 | NUR ---
REPORT RECEIVED AND CARE OF PT ASSUMED. PT SITTING UP IN BED READING AT THIS TIME. IV TO RIGHT HAND PATENT WITH HS INFUSING AT 100 ML/HR. WILL MONITOR FOR NEEDS.
--- NOTE | 2019-02-21 19:40 | NUR ---
DR ALANIS HERE ROUNDING ON PT.
[2019-02-21 20:33] VITALS: BP 136/63
[2019-02-21 20:40] LABS: % SATURATION 6 % (15-55); IRON 28 ug/dl (35-150); TOTAL IRON BIND CAPACITY 439 ug/dl (260-445); UNSAT IRON BIND CAPACITY 411 ug/dl (150-375)
--- NOTE | 2019-02-21 22:02 | NUR ---
HS MEDICATIONS GIVEN. PLACED HOLD ON METFORMIN FOR 48 HOURS DUE TO CONTRAST DYE GIVEN WITH CT SCAN TODAY. WILL CONTINUE TO MONITOR FOR NEEDS.
--- NOTE | 2019-02-21 23:49 | NUR ---
HS SNACK GIVEN: CHRISTINA CRACKERS AND PEANUT BUTTER. WILL CONTINUE TO MONITOR FOR NEEDS.
--- NOTE | 2019-02-22 00:05 | NUR ---
SCD'S PLACED ON BLE.
--- NOTE | 2019-02-22 00:20 | NUR ---
PLACED SPECIMEN CUPS IN ROOM FOR ORDERED RESPIRATORY CX AND OCCULT STOOL SAMPLE.
[2019-02-22 00:57] VITALS: BP 100/43
--- NOTE | 2019-02-22 02:21 | NUR ---
COLLECTED RESPIRATORY CULTURE AND DELIVERED TO LAB.
[2019-02-22 05:08] VITALS: BP 116/54
[2019-02-22 06:23] LABS: BASOPHILS 0.2 % (0-2); EOSINOPHILS 2.5 % (0-7); HEMATOCRIT 27.4 % (36.0-48.0); HEMOGLOBIN 8.2 g/dL (12-16); IMMATURE GRANULOCYTES 0.2 % (0-5); MCH 26.2 pg (26.0-34.0); MCHC 29.9 g/dL (31.0-37.0); MCV 87.5 fL (80.0-100.0); MEAN PLATELET VOLUME 9.6 fL (7.4-10.4); MONOCYTES 10.3 % (2-11); NEUTROPHILS 66.8 % (40-80); PLATELET COUNT 217 10x3/uL (130-400); RBC 3.13 10x6/uL (4.00-5.40); RDW 15.8 % (11.5-14.5)
[2019-02-22 06:27] LABS: WBC 9.3 10x3/uL (4.8-10.8)
[2019-02-22 06:45] LABS: ANION GAP 10.4 mmol/L (8-16); CALCIUM 8.5 mg/dL (8.5-10.1); CARBON DIOXIDE 31.8 mmol/L (21.0-32.0); CREATININE - SERUM 0.9 mg/dL (0.6-1.3); POTASSIUM - SERUM 4.2 mmol/L (3.5-5.1)
--- NOTE | 2019-02-22 07:38 | NUR ---
ALERT AND ORIENTED. LUNGS DIMINISHED TO BILATERAL MIDDLE AND LOWER LOBES. HEART SOUNDS S1 AND S2 HEARD IN ALL VALDEZ. BOWEL SOUNDS ACTIVE X 4. SKIN INTACT WITHOUT REDNESS. DENIES PAIN. REQUESTED AND GIVEN CUP OF COFFEE. SITTING IN CHAIR AT BEDSIDE. CALL AMAYA AND PERSONAL ITEMS IN REACH. WILL CONTINUE TO MONITOR.
--- NOTE | 2019-02-22 08:37 | HP ---
PATIENT: SOFÍA COREAS MEDICAL RECORD: [id number] ACCOUNT: [id number] LOCATION:D.MS [id number] : [birth year] ADMISSION DATE: 02/21/19 PCP: ALEXUS ALANIS MD HISTORY AND PHYSICAL EXAMINATION DATE OF ADMISSION: 02/21/2019 REASON FOR ADMISSION: Increased cough. HISTORY: This is a 68-year-old female who was admitted to [facility] on February 07 and diagnosed with multifocal pneumonia with hypoxemia. Chest x-ray showed multifocal pneumonia. She was started on broad-spectrum antibiotics and got better. On February 11, repeat chest x-ray showed resolving infiltrates and she was discharged home on antibiotics. She completed those antibiotics, but she states she has had some increased swelling with cough, congestion, and fatigue. Her O2 sat in the ER was 85% this morning. Plain film chest x-ray really did not show an obvious pneumonia, compared to the x-ray done on 02/09/2019. Pulmonary venous congestion was the impression. The patient had a CT angiogram of the chest. It did not show a PE, but it did show multifocal pneumonia. She is admitted for further care. Her white blood cell count is 16,400. PAST MEDICAL AND SURGICAL HISTORY: Again, just admitted for pneumonia. She has history of diabetes, hypertension, COPD, and hyperlipidemia. PAST SURGICAL HISTORY: Hysterectomy, tonsillectomy, and gastric bypass. ALLERGIES: CEDAR WOOD. HOME MEDICATIONS: Include benazepril 40 mg once a day, lovastatin 20 mg once a day, aspirin 81 mg once a day, citalopram 40 mg once a day, ibuprofen 800 mg twice a day as needed for pain, probiotic once a day, Actos 30 mg once a day, metformin 1000 mg b.i.d., vitamin C 1000 mg twice a day, folic acid 0.4 mg daily, multivitamin once a day, and vitamin D 800 units. She wears home oxygen at night. She has just completed 5 days of Levaquin after discharge on February 11. FAMILY HISTORY: Father at 75 of COPD problems. Mother at 61 from ALS. REVIEW OF SYSTEMS: GENERAL: Generalized fatigue. She states she may have gained a little weight. HEENT: No particular sinus or allergy problems. RESPIRATORY: She has had increasing cough, mostly dry. GASTROINTESTINAL: No nausea, vomiting, diarrhea, or constipation. GENITOURINARY: No dysuria or incontinence. MUSCULOSKELETAL: She has chronic low back pain. She is morbidly obese. NEUROLOGIC: No headaches or seizures. PSYCHIATRIC: She is on antidepressant. PHYSICAL EXAMINATION: VITAL SIGNS: Temperature 98.4, pulse 90, respirations 18, blood pressure 117/73, and O2 sat 93% on 2 liters. When she presented to the ER, her O2 sat on room air was 85%. GENERAL: She is morbidly obese. Awake, alert, and in no acute distress. HEENT: Grossly within normal limits. NECK: Supple. HISTORY AND PHYSICAL [id number] SOFÍA COREAS HEART: Regular rate and rhythm. LUNGS: Diminished breath sounds in the bases bilaterally. No wheeze. ABDOMEN: Soft and nontender. EXTREMITIES: Trace if any edema. LABORATORY DATA: Lactic acid level at 1500 hours was 3.2. D-dimer elevated at 0.8. Basic metabolic panel was unremarkable. Glucose was 166. Liver functions were all normal. CBC showed white count of 16,400, hemoglobin 9.4, hematocrit 32.4, and platelets number 236,000. DIAGNOSTIC DATA: Again, chest x-ray today compared to the one on 02/09/2019 showed pulmonary venous congestion. CTA of the chest with PE protocol showed no PE in the main pulmonary arteries to the proximal segmental branches. There are patchy airspace opacities in the lungs, concerning for multifocal pneumonia. ASSESSMENT: 1. Hospital-acquired pneumonia. 2. Anemia. 3. Diabetes. 4. Leukocytosis. PLAN: We will admit for IV antibiotics. Get blood cultures. We will order sputum cultures. We will consult pulmonology. She is followed by them. Other tests or procedures as warranted. TRANSINT:[id number] Voice Confirmation ID: [id number] DOCUMENT ID: [id number] ALEXUS ALANIS MD at 0837 CC: [id number] DICTATION DATE: 02/21/192002 GAS DISTRIBUTION SUPERVISOR: 02/21/192027 ADM IN [facility] [address] [place] [address]
[2019-02-22 09:11] VITALS: BP 137/60
--- NOTE | 2019-02-22 09:36 | NUR ---
CALLED PHARMACY FOR PATIENT NIFEREX. STATES WILL BRING.
--- NOTE | 2019-02-22 10:53 | NUR ---
RESTING IN BED. DENIES PAIN. DENIES NEEDS. WILL CONTINUE TO MONITOR.
[2019-02-22 11:52] VITALS: BP 1331/65
--- NOTE | 2019-02-22 12:39 | MORECARE ---
CASE MANAGEMENT DISCHARGE SUMMARY PATIENT: SOFÍA COREAS UNIT: [id number] ADM DATE: 02/21/19 AGE: 68 : 51 SEX: F ROOM/BED: D.2230 AUTHOR: SHAY ROSADO PHYSICIAN: REFERRING PHYSICIAN: ALEXUS ALANIS MD DATE OF SERVICE: 02/22/19 Discharge Plan Patient Name: SOFÍA COREAS Facility: [facility]:[place] : 1950 Planned Disposition: Home Anticipated Discharge Date: Discharge Date: Expected LOS: Initial Reviewer: MARLI Initial Review Date: 02/22/2019 Generated: 02/22/19 1:39 pm DCPIA - Discharge Planning Initial Assessment Updated by MARLI: Elo Treviño on 02/22/19 12:34 pm * Is the patient Alert and Oriented? Yes * How many steps to enter\exit or inside your home? * PCP ANNABELLE * Pharmacy [facility] * Preadmission Environment Home with Family * ADLs Independent * Equipment Oxygen * Other Equipment HAS O2 AND NEB AND CANE * List name and contact numbers for known caregivers / representatives who currently or will assist patient after discharge: KALPESH SWANN [phone] * Verbal permission to speak to the caregivers and representatives has been obtained from the patient. N/A * Additional services required to return to the preadmission environment? No * Can the patient safely return to the preadmission environment? Yes * Has this patient been hospitalized within the prior 30 days at any hospital? Yes Patient Name: SOFÍA COREAS Page 46066 at 1239 All edits/amendments must be made on the electronic document DICTATION DATE: 02/22/19 1238 JEWEL HOLE GAUGER: SEAN 02/22/19 1238 RPT#: [id number] DC DATE: STATUS: ADM IN [facility] [address] [place] [address] END OF REPORT
--- NOTE | 2019-02-22 12:48 | MORECARE ---
CASE MANAGEMENT DISCHARGE SUMMARY PATIENT: SOFÍA COREAS UNIT: [id number] ADM DATE: 02/21/19 AGE: 68 : 51 SEX: F ROOM/BED: D.2230 AUTHOR: ASHLEEDOC PHYSICIAN: REFERRING PHYSICIAN: ALEXUS ALANIS MD DATE OF SERVICE: 02/22/19 Discharge Plan Patient Name: SOFÍA COREAS Facility: [facility]:[place] : 1950 Planned Disposition: Home Anticipated Discharge Date: Discharge Date: Expected LOS: Initial Reviewer: [email or web address] Initial Review Date: 02/22/2019 Generated: 02/22/19 1:48 pm Comments DCP- Discharge Planning Updated by [email or web address]: Elo Treviño on 02/22/19 11:[address] Patient Name: SOFÍA COREAS Admission Status: ER Accout number: [id number] Admission Date: 02-21-2019 : 1950 Admission Diagnosis: Attending: ALEXUS ALANIS Current LOS: 1 Anticipated DC Date: Planned Disposition: Home Primary Insurance: MEDICARE A & B Discharge Planning Comments: CM MET WITH PT AFTER VERBAL CONSENT TO DO INITIAL CM ASSESSMENT. CM EXPLAINED THE ROLE OF A CM AND SERVICES AVAILABLE LIKE HOME HEALTH, REHAB AND DME. PT STATED SHE WILL RETURN HOME WITH SON PT FEELS THIS IS A SAFE DC PLAN AND DENIES ANY CM NEEDS AT THIS TIME. STATES SHE USES HOME 02 AND HAS NEB THRU [facility]. SHE IS INDEPENDENT IN HER CARE. . CM WILL CONTINUE TO FOLLOW. Report Clerk: Elo Treviño DCPIA - Discharge Planning Initial Assessment Updated by [email or web address]: Elo Treviño on 02/22/19 12:34 pm * Is the patient Alert and Oriented? Yes * How many steps to enter\exit or inside your home? * PCP ANNABELLE * [facility] * Preadmission Environment Home with Family * ADLs Independent * Equipment Oxygen * Other Equipment HAS O2 AND NEB AND CANE * List name and contact numbers for known caregivers / representatives who currently or will assist patient after discharge: KALPESH SWANN [phone] * Verbal permission to speak to the caregivers and representatives has been obtained from the patient. N/A * Additional services required to return to the preadmission environment? No * Can the patient safely return to the preadmission environment? Yes * Has this patient been hospitalized within the prior 30 days at any hospital? Yes Last DP export: 02/22/19 11:39 a Patient Name: SOFÍA COREAS Page 21860 at 1248 All edits/amendments must be made on the electronic document DICTATION DATE: 02/22/191247 ETL INFORMATICA DEVELOPER: SEAN 02/22/19 1248 RPT#: [id number] DC DATE: STATUS: ADM IN [facility] [address] [place] [address] END OF REPORT
--- NOTE | 2019-02-22 17:28 | NUR ---
RESTING IN BED. DENIES PAIN. DENIES NEEDS. BED LOW. CALL AMAYA AND PERSONAL ITEMS IN REACH. WILL CONTINUE TO MONITOR.
[2019-02-22 17:33] VITALS: BP 127/56
--- NOTE | 2019-02-22 21:08 | NUR ---
REC'D CHGE OF SHIFT. IN BED SUPINE POSITION.HOB UP 30 DEGREES. 02 2L NC.DENIES ANY RESP. DISTRESS.WILL CONTINUE TO MONITOR FOR ANY CHGES. AND FOLLOW CURRENT PLAN OF CARE
[2019-02-22 21:44] VITALS: BP 127/54
[2019-02-23 01:11] VITALS: BP 114/63
[2019-02-23 06:23] VITALS: BP 105/46
--- NOTE | 2019-02-23 07:22 | NUR ---
ALERT AND ORIENTED. LUNGS DIMINISHED TO BILATERAL MIDDLE AND LOWER LOBES. HEART SOUNDS S1 AND S2 HEARD IN ALL VALDEZ. BOWEL SOUNDS ACTIVE X 4. SKIN INTACT WITHOUT REDNESS. DENIES PAIN. DENIES NEEDS. BED LOW. CALL AMAYA AND PERSONAL ITEMS IN REACH. WILL CONTINUE TO MONITOR.
[2019-02-23 08:56] VITALS: BP 121/73
--- NOTE | 2019-02-23 09:36 | NUR ---
RESTING IN BED. DENIES PAIN. DENIES NEEDS. WILL CONTINUE TO MONITOR.
[2019-02-23 12:03] VITALS: BP 114/47
--- NOTE | 2019-02-23 14:22 | NUR ---
RESTING IN BED. DENIES PAIN. DENIES NEEDS. WILL CONTINUE TO MONITOR.
[2019-02-23 16:36] VITALS: BP 117/48
--- NOTE | 2019-02-23 18:50 | NUR ---
SITTING UP IN CHAIR AT BEDSIDE. NO C/O AT THIS TIME. DENIES NEEDS. NO CHANGES NOTED.
[2019-02-23 22:12] VITALS: BP 130/86
[2019-02-24 01:00] VITALS: BP 149/69
--- NOTE | 2019-02-24 03:49 | NUR ---
I have reviewed this patient and I concur with the Shift Assessment completed by the Licensed Practical Nurse today this shift.
[2019-02-24 06:35] VITALS: BP 114/61
--- NOTE | 2019-02-24 07:50 | NUR ---
PT RESTING IN BED. NO SIGNS OF DISTRESS. IV TO LEFT FORARM PATENT NO REDNESS OR TENDERNESS. ON 2L NC. DENIES ANY FUTHER NEED AT THIS TIME. CALL LIGHT IN REACH. BED LOW POSITION. NO FAMILY AT BEDSIDE AT THIS TIME.
[2019-02-24 09:11] VITALS: BP 116/40
[2019-02-24 12:25] VITALS: BP 100/42
[2019-02-24 16:40] VITALS: BP 115/43
--- NOTE | 2019-02-24 18:58 | NUR ---
I have reviewed this patient and I concur with the Shift Assessment completed by the Licensed Practical Nurse today this shift.
[2019-02-24 22:05] VITALS: BP 125/78
[2019-02-25 01:22] VITALS: BP 119/59
--- NOTE | 2019-02-25 05:10 | NUR ---
RESTING QUITELY IN BED NO APPARENT DISTRESS CALL LIGHT IN REACH
[2019-02-25 05:49] VITALS: BP 126/59
[2019-02-25 08:59] VITALS: BP 131/61
--- NOTE | 2019-02-25 11:58 | NUR ---
PT RESTING IN BED NO SIGNS OF DISTRESS. IV OUT. ON 2L NC. DENIES ANY FURTHER NEED AT THIS TIME. CALL LIGHT IN REACH. BED LOW POSITION. NO FAMILY AT BEDSIDE AT THIS TIME. IN ENTERTIC ISO. DENIES ANY PAIN AT THIS TIME.
[2019-02-25 13:25] VITALS: BP 147/76
[2019-02-25] MEDS ORDERED: LEVAQUIN750 MG PO (14:09)
[2019-02-25] MEDS ORDERED: NEURONTIN 400400 MG PO ×2 (14:41→14:42)
--- NOTE | 2019-02-25 14:41 | MORECARE ---
CASE MANAGEMENT DISCHARGE SUMMARY PATIENT: SOFÍA COREAS UNIT: [id number] ADM DATE: 02/21/19 AGE: 68 : 51 SEX: F ROOM/BED: D.2230 AUTHOR: ASHLEEDOC PHYSICIAN: REFERRING PHYSICIAN: ALEXUS ALANIS MD DATE OF SERVICE: 02/25/19 Discharge Plan Patient Name: SOFÍA COREAS Facility: [facility]:[place] : 1950 Planned Disposition: Home Anticipated Discharge Date: Discharge Date: Expected LOS: Initial Reviewer: [email or web address] Initial Review Date: 02/22/2019 Generated: 02/25/19 3:40 pm Comments DCP- Discharge Planning Updated by [email or web address]: Jessi Lo on 02/25/19 1:[address] Patient Name: SOFÍA COREAS Encounter No: [id number] : 1950 Primary Insurance: MEDICARE A & B Anticipated DC Date: Planned Disposition: Home External Planned Provider: : DCP follow-up note: Patient and family in agreement with discharge plan. IMM served and explained No changes to plan. Case management will follow and assist as needed. Jessi Lo DCP- Discharge Planning Updated by [email or web address]: Elo Treviño on 02/22/19 11:[address] Patient Name: SOFÍA COREAS Admission Status: ER Accout number: [id number] Admission Date: 02-21-2019 : 1950 Admission Diagnosis: Attending: ALEXUS ALANIS Current LOS: 1 Anticipated DC Date: Planned Disposition: Home Primary Insurance: MEDICARE A & B Discharge Planning Comments: CM MET WITH PT AFTER VERBAL CONSENT TO DO INITIAL CM ASSESSMENT. CM EXPLAINED THE ROLE OF A CM AND SERVICES AVAILABLE LIKE HOME HEALTH, REHAB AND DME. PT STATED SHE WILL RETURN HOME WITH SON PT FEELS THIS IS A SAFE DC PLAN AND DENIES ANY CM NEEDS AT THIS TIME. STATES SHE USES HOME 02 AND HAS NEB THRU [facility]. SHE IS INDEPENDENT IN HER CARE. . CM WILL CONTINUE TO FOLLOW. Baccarat Manager: Elo Treviño DCPIA - Discharge Planning Initial Assessment Updated by [email or web address]: Elo Treviño on 02/22/19 12:34 pm * Is the patient Alert and Oriented? Yes * How many steps to enter\exit or inside your home? * PCP ANNABELLE * Pharmacy [facility] * Preadmission Environment Home with Family * ADLs Independent * Equipment Oxygen * Other Equipment HAS O2 AND NEB AND CANE * List name and contact numbers for known caregivers / representatives who currently or will assist patient after discharge: KALPESH SWANN [phone] * Verbal permission to speak to the caregivers and representatives has been obtained from the patient. N/A * Additional services required to return to the preadmission environment? No * Can the patient safely return to the preadmission environment? Yes * Has this patient been hospitalized within the prior 30 days at any hospital? Yes Coverage Notice Reviewer: [email or web address] Dalila Lo Notice Issued Date-Time: 02/25/2019 14:30 Notice Type: IM Discharge Notice Notice Delivered To: Patient Relationship to Patient: Chuck Wagon Cook Name: Delivery Method: HAND - Hand Delivered Michelle Days: Prior Verbal Notification: Recipient Understood Notice: Yes Recipient Signature: Yes Med Rec Note Co-signed by Attending: Coverage Notice Comment: Last DP export: 02/22/19 11:48 a Patient Name: SOFÍA COREAS Page 99402 at 1441 All edits/amendments must be made on the electronic document DICTATION DATE: 02/25/191439 CARDIOVASCULAR SURGICAL TECH: SEAN 02/25/19 144 RPT#: [id number] DC DATE: STATUS: ADM IN [facility] [address] [place] [address] END OF REPORT
--- NOTE | 2019-02-25 15:47 | NUR ---
DISCHARGE INSTRUCTIONS GIVEN. SEEMS TO UNDERSTAND INSTRUCTIONS. IV OUT TIP INTACT. LEFT WITH HOSPITAL STAFF TO GO HOME WITH FAMILY MEMEBER.
--- NOTE | 2019-03-02 06:48 | MORECARE ---
CASE MANAGEMENT DISCHARGE SUMMARY PATIENT: SOFÍA COREAS UNIT: [id number] ADM DATE: 02/21/19 AGE: 68 : 52 SEX: F ROOM/BED: D.2230 AUTHOR: SHAY ROSADO PHYSICIAN: REFERRING PHYSICIAN: ALEXUS ALANIS MD DATE OF SERVICE: 03/02/19 Discharge Plan Patient Name: SOFÍA COREAS Facility: [facility]:[place] : 1950 Planned Disposition: Home Anticipated Discharge Date: Discharge Date: 02/25/2019 Expected LOS: 0 Initial Reviewer: [id number] Initial Review Date: 02/22/2019 Generated: 03/02/19 7:48 am Comments DCP- Discharge Planning Updated by [email or web address]: Jessi Lo on 02/25/19 1:[address] Patient Name: SOFÍA COREAS Encounter No: [id number] : 1950 Primary Insurance: MEDICARE A & B Anticipated DC Date: Planned Disposition: Home External Planned Provider: : DCP follow-up note: Patient and family in agreement with discharge plan. IMM served and explained No changes to plan. Case management will follow and assist as needed. Jessi Lo DCP- Discharge Planning Updated by [email or web address]: Elo Treviño on 02/22/19 11:[address] Patient Name: SOFÍA COREAS Admission Status: ER Accout number: [id number] Admission Date: 02-21-2019 : 1950 Admission Diagnosis: Attending: ALEXUS ALANIS Current LOS: 1 Anticipated DC Date: Planned Disposition: Home Primary Insurance: MEDICARE A & B Discharge Planning Comments: CM MET WITH PT AFTER VERBAL CONSENT TO DO INITIAL CM ASSESSMENT. CM EXPLAINED THE ROLE OF A CM AND SERVICES AVAILABLE LIKE HOME HEALTH, REHAB AND DME. PT STATED SHE WILL RETURN HOME WITH SON PT FEELS THIS IS A SAFE DC PLAN AND DENIES ANY CM NEEDS AT THIS TIME. STATES SHE USES HOME 02 AND [facility]. SHE IS INDEPENDENT IN HER CARE. . CM WILL CONTINUE TO FOLLOW. Manager Hi: Elo Treviño DCPIA - Discharge Planning Initial Assessment Updated by [email or web address]: Elo Treviño on 02/22/19 12:34 pm * Is the patient Alert and Oriented? Yes * How many steps to enter\exit or inside your home? * PCP ANNABELLE * Pharmacy [facility] * Preadmission Environment Home with Family * ADLs Independent * Equipment Oxygen * Other Equipment HAS O2 AND NEB AND CANE * List name and contact numbers for known caregivers / representatives who currently or will assist patient after discharge: KALPESH SWANN [phone] * Verbal permission to speak to the caregivers and representatives has been obtained from the patient. N/A * Additional services required to return to the preadmission environment? No * Can the patient safely return to the preadmission environment? Yes * Has this patient been hospitalized within the prior 30 days at any hospital? Yes Coverage Notice Reviewer: [email or web address] Dalila Lo Notice Issued Date-Time: 02/25/2019 14:30 Notice Type: IM Discharge Notice Notice Delivered To: Patient Relationship to Patient: Steward/Stewardess Tourist Class Name: Delivery Method: HAND - Hand Delivered Michelle Days: Prior Verbal Notification: Recipient Understood Notice: Yes Recipient Signature: Yes Med Rec Note Co-signed by Attending: Coverage Notice Comment: Last DP export: 02/25/19 1:41 pm Patient Name: SOFÍA COREAS Page [id number] at 0648 All edits/amendments must be made on the electronic document DICTATION DATE: 03/02/19647 MOLD SPRAYER: SEAN 03/02/19647 RPT#: [id number] DC DATE:02/25/19 STATUS: DIS IN [facility] [address] [place] [address] END OF REPORT
== END 2019-02-25 15:48 | disposition home or self-care (01) | DRG 871 ==
LOC: D.ER 10:50 → D.MS 15:32
PROVIDERS: Family Medicine; ADMIT Family Medicine; ATTEND Family Medicine
DX: A41.9 Sepsis, unspecified organism (principal); J15.6 Pneumonia due to other Gram-negative bacteria; J15.212 Pneumonia due to Methicillin resistant Staphylococcus aureus; J44.0 Chronic obstructive pulmonary disease with (acute) lower respiratory infection; J96.11 Chronic respiratory failure with hypoxia; Z68.42 Body mass index [BMI] 45.0-49.9, adult; Y95 Nosocomial condition; D64.9 Anemia, unspecified; E11.9 Type 2 diabetes mellitus without complications; I10 Essential (primary) hypertension; E78.5 Hyperlipidemia, unspecified; E66.01 Morbid (severe) obesity due to excess calories

== ENCOUNTER 2019-04-05 17:22 | Inpatient (IN) | payer MEDICARE, OTHER ==
[~2019-04-05] VITALS: Ht 160 cm; Wt 99.5 kg
[~2019-04-05 17:22] MED LIST changes: +ASCORBIC ACID500 MG PO; +FOLATE0.4 MG PO; +NEURONTIN 400400 MG PO; +VITAMIN E100 UNIT PO
--- NOTE | 2019-04-05 18:55 | NUR ---
LEFT WRIST 22G IV INSERTED BY RAFA ABRAHAM.
--- NOTE | 2019-04-05 19:10 | NUR ---
RESTING WITH EYES CLOSED RESP EVEN AN UNLABORED SKIN WARM AND DRY
[2019-04-05 20:00] VITALS: BP 116/52
--- NOTE | 2019-04-05 21:35 | NUR ---
NEW ORDERS RECIUEVED AND NOTED THERE IS NO TELEMETRY AVAILABLE AT THIS TIME
[2019-04-06] VITALS (7 sets, daily range): BP systolic 99–127; BP diastolic 40–62; Ht 160 cm; Wt 99.5 kg
--- NOTE | 2019-04-06 03:41 | NUR ---
I have reviewed this patient and i concur with the shift assessment conducted by the licensed practical nurse during this shift.
[2019-04-06 05:42] LABS: BASOPHILS 0.5 % (0-2); EOSINOPHILS 1.6 % (0-7); HEMATOCRIT 32.2 % (36.0-48.0); IMMATURE GRANULOCYTES 0.2 % (0-5); LYMPHOCYTES 24.2 % (15-50); MCH 26.8 pg (26.0-34.0); MCHC 31.1 g/dL (31.0-37.0); MCV 86.3 fL (80.0-100.0); MEAN PLATELET VOLUME 10.2 fL (7.4-10.4); MONOCYTES 10.5 % (2-11); PLATELET COUNT 234 10x3/uL (130-400); RBC 3.73 10x6/uL (4.00-5.40); RDW 17.7 % (11.5-14.5); WBC 6.3 10x3/uL (4.8-10.8)
[2019-04-06 06:12] LABS: ANION GAP 16.4 mmol/L (8-16); CALCIUM 8.9 mg/dL (8.5-10.1); CARBON DIOXIDE 18.5 mmol/L (21.0-32.0); CREATININE - SERUM 2.4 mg/dL (0.6-1.3); POTASSIUM - SERUM 5.9 mmol/L (3.5-5.1)
--- NOTE | 2019-04-06 08:20 | HP ---
PATIENT: SOFÍA COREAS MEDICAL RECORD: [id number] ACCOUNT: [id number] LOCATION:[address] : [birth year] ADMISSION DATE: 04/05/19 PCP: ALEXUS ALANIS MD HISTORY AND PHYSICAL EXAMINATION DATE OF ADMISSION: 04/05/2019 CHIEF COMPLAINT: Weakness and acute renal failure and hyperkalemia. HISTORY OF PRESENT ILLNESS: This 69-year-old female came in to my office today for followup with hypertension and edema and anemia. I had started her on Dyazide 37.5/25 about 3 weeks ago for blood pressure and edema issues. She is taking it and her blood pressure is down. Her swelling is resolved. However, she states she just does not feel well. She feels weak. She had also been taking gabapentin for neuropathy, but stopped it because it can cause edema and drowsiness. In office today, her blood pressure was wen, well was low at 100/60. Her CBC was normal. Her anemia had resolved; however, basic metabolic panel came back with a potassium of 6.8, BUN 75, creatinine 2.61. With those numbers and she is not feeling well, decision was made to place her in observation status to [facility]. Give her IV fluids and Kayexalate and recheck her lab in the morning. PAST MEDICAL HISTORY: She had recently been admitted for pneumonia. She has a history of diabetes, hypertension, COPD, hyperlipidemia, and obesity. PAST SURGICAL HISTORY: Hysterectomy, tonsillectomy, and gastric bypass. ALLERGIES: CEDAR. FAMILY HISTORY: Father at 75 of COPD issues. Mother at 61 from ALS. SOCIAL HISTORY: She is a retired RN, , and lives alone. HABITS: No tobacco, rare alcohol, and no illicit drug use. HOME MEDICATIONS: Include triamterene 37.5/HCTZ 25 once a day, gabapentin 100 mg 2 capsules twice a day, folic acid 400 mcg once a day, Vitamin E 400 units 2 at bedtime, vitamin C 1000 mg twice a day, citalopram 40 mg once a day, metformin 1000 mg twice a day, benazepril 40 mg once a day, aspirin 81 mg once a day, Actos 30 mg once a day, probiotic 1-2 capsules daily, lovastatin 20 mg daily, ibuprofen 800 mg twice a day as needed for arthritis. Tylenol extra strength as needed. She takes DuoNeb via nebulizer as needed. PHYSICAL EXAMINATION: VITAL SIGNS: Temperature 97.2, pulse 86, respirations 18, blood pressure 116/52, O2 sat 98%. GENERAL: She is awake and alert. She is obese. She does not appear to be in acute distress. SKIN: Warm and dry. HEENT: Grossly within normal limits. NECK: Supple. No JVD or bruit. HEART: Regular rate and rhythm without murmur. LUNGS: Fairly clear. No wheeze. ABDOMEN: Soft, flat, nontender. EXTREMITIES: No edema. HISTORY AND PHYSICAL [id number] SOFÍA COREAS LABORATORY DATA: From my office: CBC showed white count 10,300, hemoglobin 12.1, hematocrit 39.7. Basic metabolic panel: Sodium 139, potassium 6.8, chloride 108, CO2 18.5, BUN 75, creatinine 2.61, glucose 128, calcium 10.5. ASSESSMENT: 1. Acute renal failure with a baseline of around 0.8. 2. Hyperkalemia at 6.8. 3. History of hypertension. 4. History of diabetes. PLAN: We will give her IV fluids, give Kayexalate. We will stop the triamterene/HCTZ, gabapentin is also on hold as she has metformin. We will monitor her blood sugar and place her on Lovenox for DVT prophylaxis and put her on Pepcid for stress ulcer prevention. I will recheck her lab in the morning and see how she is doing. TRANSINT:[id number] Voice Confirmation ID: [id number] DOCUMENT ID: [id number] ALEXUS ALANIS MD at 0820 CC: [id number] DICTATION DATE: 04/05/192353 ASSISTANT PROFESSOR SCULPTURE: 04/06/19 0138 ADM IN [facility] [address] [place] [address]
--- NOTE | 2019-04-06 14:48 | NUR ---
I have reviewed this patient and I concur with the Shift Assessment completed by the Licensed Practical Nurse today this shift.
[2019-04-06 17:43] LABS: ANION GAP 15.7 mmol/L (8-16); CALCIUM 8.4 mg/dL (8.5-10.1)
[2019-04-06 17:54] LABS: CREATININE - SERUM 1.7 mg/dL (0.6-1.3)
[2019-04-06 17:55] LABS: POTASSIUM - SERUM 4.7 mmol/L (3.5-5.1)
--- NOTE | 2019-04-06 19:35 | NUR ---
ALERT AND OX4 AMBLITORY AND DENIES NEEDS SKIN WARM AND DRY LCTA BED IS LOW AND LOCKED CALL LIGHT IS IN REACH
[2019-04-07] VITALS: BP 115/62
[2019-04-07 04:30] VITALS: BP 113/55
[2019-04-07 05:20] LABS: ANION GAP 15.6 mmol/L (8-16); CALCIUM 8.1 mg/dL (8.5-10.1); CREATININE - SERUM 1.4 mg/dL (0.6-1.3); POTASSIUM - SERUM 4.6 mmol/L (3.5-5.1)
--- NOTE | 2019-04-07 09:54 | NUR ---
CALLED DR ALANIS AND ASKED HIM TO PLEASE ADD DIFLUCAN TO THE PATIENT DISCHARGE MEDICATION LIST. PER PATIENT REQUEST.
[2019-04-07 09:59] VITALS: BP 99/60
--- NOTE | 2019-04-07 10:03 | NUR ---
PATIENT IS BEING DISCHARGED. SHE REQUESTED A CHANGE IN HER DISCHARGE MEDICATIONS. CALLED DR ALANIS AND ASKED IF HE COULD DO THAT. WAITING FOR HIS CALL BACK NOW.
--- NOTE | 2019-04-07 11:41 | NUR ---
REMOVED IV WITH CATHETER INTACT. REMOVED TELEMETRY. DISCHARGE TEACHING COMPLETE AND SIGNED. CALLED DR ALANIS AND WILL CALL IN ORDER FOR 1XDOSE OF DIFLUCAN ORDERED.
--- NOTE | 2019-04-07 11:54 | NUR ---
CALLED IN [place]OB[place] FOR DR ALANIS ORDERED.
--- NOTE | 2019-04-07 11:55 | NUR ---
PATIENT HAS REMOVED ALL HER BELONGINGS FROM THE ROOM SHE HAS SHOWERED AND IS DRESSED. SHE IS GOING DOWNSTAIRS BY WHEELCHAIR. SHE IS GOING HOME WITH HER DAUGHTER.
--- NOTE | 2019-04-07 15:05 | MORECARE ---
CASE MANAGEMENT DISCHARGE SUMMARY PATIENT: SOFÍA COREAS UNIT: [id number] ADM DATE: 04/06/19 AGE: 69 : 52 SEX: F ROOM/BED: D.5422 AUTHOR: SHAY ROSADO PHYSICIAN: REFERRING PHYSICIAN: ALEXUS ALANIS MD DATE OF SERVICE: 04/07/19 Discharge Plan Patient Name: SOFÍA COREAS Facility: [facility]:[place] : 1950 Planned Disposition: Home Anticipated Discharge Date: 04/07/19 Discharge Date: 04/07/2019 Expected LOS: 1 Initial Reviewer: [email or web address] Initial Review Date: 04/07/2019 Generated: 04/07/19 4:05 pm DCPIA - Discharge Planning Initial Assessment Updated by [id number]: Fer Taylor on 04/07/19 3:03 pm * Is the patient Alert and Oriented? Yes * How many steps to enter\exit or inside your home? NONE * PCP DR. ALANIS * Pharmacy [facility] * Preadmission Environment Home with Family * ADLs Independent * Equipment Cane Nebulizer Oxygen Shower Chair * Other Equipment HOME OXYGEN ONLY [facility] - PROVIDER * List name and contact numbers for known caregivers / representatives who currently or will assist patient after discharge: HUE COREAS, SON, * Verbal permission to speak to the caregivers and representatives has been obtained from the patient. N/A * Community resources currently utilized None * Please name any agencies selected above. NONE * Additional services required to return to the preadmission environment? No * Can the patient safely return to the preadmission environment? Yes * Has this patient been hospitalized within the prior 30 days at any hospital? Yes Coverage Notice Reviewer: [id number] Page Hospital Notice Issued Date-Time: 04/06/2019 9:31 Notice Type: Medicare Outpatient Observation Notice Notice Delivered To: Patient Relationship to Patient: Self Bricklayer Paving Brick Name: Delivery Method: HAND - Hand Delivered Michelle Days: Prior Verbal Notification: Recipient Understood Notice: Yes Recipient Signature: Yes Med Rec Note Co-signed by Attending: Coverage Notice Comment: Patient Name: SOFÍA COREAS Page 05274 at 1505 All edits/amendments must be made on the electronic document DICTATION DATE: 04/07/19 1504 BOOK CLEANER: SEAN 04/07/19 1504 RPT#: [id number] DC DATE:04/07/19 STATUS: DIS IN [facility] [address] [place] [address] END OF REPORT
--- NOTE | 2019-04-07 15:14 | MORECARE ---
CASE MANAGEMENT DISCHARGE SUMMARY PATIENT: SOFÍA COREAS UNIT: [id number] ADM DATE: 04/06/19 AGE: 69 : 52 SEX: F ROOM/BED: D.9124 AUTHOR: ASHLEE,DOC PHYSICIAN: REFERRING PHYSICIAN: ALEXUS ALANIS MD DATE OF SERVICE: 04/07/19 Discharge Plan Patient Name: SOFÍA COREAS Facility: [facility]:[place] : 1950 Planned Disposition: Home Anticipated Discharge Date: 04/07/19 Discharge Date: 04/07/2019 Expected LOS: 1 Initial Reviewer: [email or web address] Initial Review Date: 04/07/2019 Generated: 04/07/19 4:14 pm Comments DCP- Discharge Planning Updated by [id number]: Fer Taylor on 04/07/19 2:[address] Patient Name: SOFÍA COREAS Admission Status: Urgent Accout number: [id number] Admission Date: 04-06-2019 : 1950 Admission Diagnosis: Attending: ALEXUS ALANIS Current LOS: 1 Anticipated DC Date: 04-07-2019 Planned Disposition: Home Primary Insurance: MEDICARE A & B Discharge Planning Comments: CM MET WITH PT IN ROOM TO DISCUSS DISCHARGE PLANNING AND NEEDS. PT REPORTS LIVING AT HOME INDEPENDENTLY WITHWITH HER SON AND DAUGHTER IN LAW. PT HAS CANE, NEBULIZER, HOME OXYGEN AND SHOWER CHAIR FROM [facility]. PT HAS NO OUTSIDE SERVICES ASSISTING IN THE HOME. CM DISCUSSED AVAILABILITY OF HOME HEALTH, REHAB SERVICES AND MEDICAL EQUIPMENT. PT DENIES DISCHARGE NEEDS, REPORTS HER DAUGHTER IN LAW WILL PICK HER UP FOR DISCHARGE HOME.PT ASKED ABOUT GETTING A PORTABLE OXYGEN CONCENTRATOR, CM OFFERED TO ASK THE DOCTOR FOR PORTABLE OXYGEN TESTING, PT ASKED IF SHE WOULD GET A CONCENTRATOR AND NOT BOTTLES. CM EXPLAINED THAT SHE WOULD PROBABLY GET BOTTLES AND INSURANCE WOULD DETERMINE IF AND WHEN THEY WOULD PAY FOR A PORTABLE CONCENTRATOR. PT STATES SHE WAS AT THE DOCTORS OFFICE PRIOR TO ARRIVAL AT HOSPITAL AND THEY TESTED HER AND SHE DID NOT QUALIFY FOR PORTABLE OXYGEN THEN. PT DENIED NEED FOR TESTING AND INFORMED CM THAT DR. DC IS TRYING TO GET HER A PORTABLE CONCENTRATOR AND SHE HAS AN APPOINTMENT ALREADY ON 04-15. Lubrication Technician: Fer Taylor DCPIA - Discharge Planning Initial Assessment Updated by [email or web address]: Fer Taylor on 04/07/19 3:03 pm * Is the patient Alert and Oriented? Yes * How many steps to enter\exit or inside your home? NONE * PCP DR. ALANIS * [facility] * Preadmission Environment Home with Family * ADLs Independent * Equipment Cane Nebulizer Oxygen Shower Chair * Other Equipment HOME OXYGEN ONLY [facility] - PROVIDER * List name and contact numbers for known caregivers / representatives who currently or will assist patient after discharge: HUE COREAS, SON, * Verbal permission to speak to the caregivers and representatives has been obtained from the patient. N/A * Community resources currently utilized None * Please name any agencies selected above. NONE * Additional services required to return to the preadmission environment? No * Can the patient safely return to the preadmission environment? Yes * Has this patient been hospitalized within the prior 30 days at any hospital? Yes Coverage Notice Reviewer: [id number] Dalila Erickson Notice Issued Date-Time: 04/06/2019 9:31 Notice Type: Medicare Outpatient Observation Notice Notice Delivered To: Patient Relationship to Patient: Self Loan Specialist Name: Delivery Method: HAND - Hand Delivered Michelle Days: Prior Verbal Notification: Recipient Understood Notice: Yes Recipient Signature: Yes Med Rec Note Co-signed by Attending: Coverage Notice Comment: Last DP export: 04/07/19 2:05 p Patient Name: SOFÍA COREAS Page [id number] at 1514 All edits/amendments must be made on the electronic document DICTATION DATE: 04/07/191513 CROP AND SOIL SCIENTIST: SEAN 04/07/19 1514 RPT#: [id number] DC DATE:04/07/19 STATUS: DIS IN [facility] [address] [place] [address] END OF REPORT
== END 2019-04-07 12:43 | disposition home or self-care (01) | DRG 683 ==
LOC: D.M2 17:22 → OBSVTIME 17:23 → D.M2 04-06 19:30
PROVIDERS: ADMIT Family Medicine; ATTEND Family Medicine
DX: N17.9 Acute kidney failure, unspecified (principal); Z68.41 Body mass index [BMI] 40.0-44.9, adult; E87.5 Hyperkalemia; E11.9 Type 2 diabetes mellitus without complications; I10 Essential (primary) hypertension; J44.9 Chronic obstructive pulmonary disease, unspecified; E78.5 Hyperlipidemia, unspecified; E66.9 Obesity, unspecified

== ENCOUNTER → 2019-05-19 11:55 | Outpatient (CLI) | payer MEDICARE, OTHER ==
[2019-04-06 15:15] VITALS: BMI 40.7
== END | disposition home or self-care (01) ==
LOC: D.RAD 11:55
PROVIDERS: ATTEND Internal Medicine Pulmonary Disease
DX: Z87.01 Personal history of pneumonia (recurrent) (principal)

== ENCOUNTER 2019-09-12 12:24 | Inpatient (IN) | payer MEDICARE ==
[2019-09-12] VITALS (7 sets, daily range): BP systolic 90–115; BP diastolic 41–64
[~2019-09-12] VITALS: Ht 160 cm; Wt 102.3 kg
[2019-09-12] MEDS ORDERED: ECHINACEA PO (12:32)
[2019-09-12 12:55] LABS: BASOPHILS 0.1 % (0-2); EOSINOPHILS 0.4 % (0-7); HEMATOCRIT 34.4 % (36.0-48.0); HEMOGLOBIN 10.4 g/dL (12-16); IMMATURE GRANULOCYTES 0.3 % (0-5); MCHC 30.2 g/dL (31.0-37.0); MCV 95.8 fL (80.0-100.0); MEAN PLATELET VOLUME 9.8 fL (7.4-10.4); MONOCYTES 9.6 % (2-11); NEUTROPHILS 84.6 % (40-80); RBC 3.59 10x6/uL (4.00-5.40); WBC 9.9 10x3/uL (4.8-10.8)
[2019-09-12 12:56] LABS: PLATELET COUNT 187 10x3/uL (130-400)
[2019-09-12 13:03] LABS: APTT 27.4 SECONDS (22.8-39.4); INR 1.05 (0.85-1.17); PROTIME 13.6 SECONDS (11.6-15.0)
[2019-09-12 13:08] LABS: CALC OSMOLALITY 289 mosm/kg (275-300); CALCIUM 9.4 mg/dL (8.5-10.1); CARBON DIOXIDE 25.7 mmol/L (21.0-32.0); CHLORIDE - SERUM 109 mmol/L (98-107); CREATININE - SERUM 1.3 mg/dL (0.6-1.3); GLUCOSE 115 mg/dL (74-106); POTASSIUM - SERUM 4.2 mmol/L (3.5-5.1); SODIUM 143 mmol/L (136-145); UREA NITROGEN 25 mg/dL (7-18); eGFR NON AFRICAN AMERICAN 43 mL/min (90-120)
--- NOTE | 2019-09-12 13:10 | NUR ---
ASSUMED CARE OF PATIENT, SITTING UP ON STRETCHER WITHOUT DISTRESS, O2 95% ON 2LPM, RESP CALLED TO BEDSIDE TO DO ABG'S. PATIENT IS A+O X3, CALL LIGHT WITHIN REACH, STATES SHE IS FEELING MUCH BETTER WITH THE OXYGEN ON.
[2019-09-12 13:19] LABS: ALBUMIN 2.9 g/dL (3.4-5.0); ALKALINE PHOSPHATASE 48 U/L (30-120); ALT (SGPT) 19 U/L (10-68); BILIRUBIN - TOTAL 0.49 mg/dL (0.2-1.3); CKMB 0.7 U/L (0.0-3.6); CREATINE KINASE 60 UL (21-215); PRO BNP 105 pg/mL (0-125); PROTEIN - SERUM 6.1 g/dL (6.4-8.2)
[2019-09-12 13:20] LABS: TROPONIN-I < 0.017 ng/mL (0.000-0.060)
--- NOTE | 2019-09-12 14:30 | NUR ---
PATIENT TO BE ADMITTED, MD TO BEDSIDE. PATIENT STABLE, CALL LIGHT WITHIN REACH.
--- NOTE | 2019-09-12 16:15 | NUR ---
DR QUIJANO TO BEDSIDE, RESP TO BEDSIDE FOR NAZIA
--- NOTE | 2019-09-12 19:05 | NUR ---
PATIENT TO FLOOR.
[2019-09-12 20:03] LABS: BILIRUBIN NEGATIVE (NEGATIVE); GLUCOSE NEGATIVE (NEGATIVE); KETONE LARGE mg/dL (NEGATIVE); NITRITE NEGATIVE (NEGATIVE); UROBILINOGEN NORMAL (NORMAL)
--- NOTE | 2019-09-12 23:05 | NUR ---
SOLUMEDROL PROVIDED PER ORDER. PATIENT RESQUESTED SANDWICH TRAY, PROVIDED. DENIES FURTHER NEEDS AT THIS TIME. CALL LIGHT IN RECH. CPOC.
[2019-09-13] VITALS: BP 98/47
[2019-09-13 00:02] VITALS: Ht 160 cm; Wt 102.3 kg
[2019-09-13 04:00] VITALS: BP 100/51
[2019-09-13 04:17] LABS: BASOPHILS 0.1 % (0-2); EOSINOPHILS 0 % (0-7); HEMATOCRIT 30.2 % (36.0-48.0); HEMOGLOBIN 9.2 g/dL (12-16); IMMATURE GRANULOCYTES 0.3 % (0-5); LYMPHOCYTES 4.2 % (15-50); MCH 28.8 pg (26.0-34.0); MCHC 30.5 g/dL (31.0-37.0); MCV 94.4 fL (80.0-100.0); MEAN PLATELET VOLUME 9.8 fL (7.4-10.4); MONOCYTES 2.6 % (2-11); NEUTROPHILS 92.8 % (40-80); PLATELET COUNT 200 10x3/uL (130-400); RDW 15.1 % (11.5-14.5)
[2019-09-13 04:28] LABS: WBC 17.6 10x3/uL (4.8-10.8)
[2019-09-13 04:33] LABS: CALCIUM 8.9 mg/dL (8.5-10.1); CARBON DIOXIDE 24.5 mmol/L (21.0-32.0); CREATININE - SERUM 1.2 mg/dL (0.6-1.3); POTASSIUM - SERUM 4.5 mmol/L (3.5-5.1)
--- NOTE | 2019-09-13 07:10 | NUR ---
PT RESTING IN BED. NO SIGNS OF DISTRESS. IV TO RIGHT FORARM PATENT NO REDNESS OR TENDERNESS. ON 3.5L NC. ON TELEMETRY 95 SR. DENIES ANY FURTHER NEED AT THIS TIME. CALL LIGHT IN REACH. BED LOW POSITION. NO FAMILY AT BEDSIDE AT THIS TIME.
[2019-09-13 08:23] VITALS: BP 91/45
--- NOTE | 2019-09-13 09:56 | NUR ---
UP IN CHAIR. PT IS WITHOUT NEEDS.CALL LIGHT IN REACH
[2019-09-13 12:18] VITALS: BP 101/52
[2019-09-13] MEDS ORDERED: OXYBUTYNIN CHLOR5 M1 PO (13:43)
[2019-09-13 16:43] VITALS: BP 105/62
[2019-09-13 21:39] VITALS: BP 106/56
--- NOTE | 2019-09-13 22:00 | NUR ---
A&O X 4. AMBULATES AD KAMARI. DENIES PAIN. REPORTS OCCASIONAL COUGH WITH SPUTUM. INFORMED PT ON SPUTUM COLLECTION METHOD. PT VERBALIZED UNDERSTANDING. DENIES NEEDS AT THIS TIME, WILL CONTINUE TO MONITOR.
[2019-09-14 01:26] VITALS: BP 96/42
[2019-09-14 05:30] VITALS: BP 91/48
--- NOTE | 2019-09-14 06:45 | NUR ---
I have reviewed this patient and I concur with the Shift Assessment completed by the Licensed Practical Nurse today this shift.
--- NOTE | 2019-09-14 07:51 | NUR ---
ALERT AND ORIENTED. LUNGS DIMINISHED BILATERALLY. HEART SOUNDS S1 AND S2 HEARD IN ALL VALDEZ. BOWEL SOUNDS ACTIVE X 4. IV TO LFA PATENT WITHOUT REDNESS. SKIN INTACT WITHOUT REDNESS. BED LOW. CALL AMAYA AND PERSONAL ITEMS IN REACH. WILL CONTINUE TO MONITOR.
[2019-09-14 09:28] VITALS: BP 109/51
--- NOTE | 2019-09-14 11:40 | NUR ---
SITTING IN CHAIR AT BEDSIDE. DENIES NEEDS. WILL CONTINUE TO MONITOR.
[2019-09-14 12:45] VITALS: BP 114/58
[2019-09-14 17:17] VITALS: BP 112/56
--- NOTE | 2019-09-14 18:02 | NUR ---
SITTING IN CHAIR AT BEDSIDE. DENIES NEEDS. CALL AMAYA AND PERSONAL ITEMS IN REACH.
--- NOTE | 2019-09-14 19:25 | NUR ---
A&O X 4. ON PHONE IN ROOM. DENIES PAIN/DISCOMFORT. REPORTS OCCASIONAL SOB. DENIES NEEDS AT THIS TIME. 2L O2 IN USE. CONTINUE PLAN OF CARE.
[2019-09-14 23:09] VITALS: BP 112/53
[2019-09-15 02:53] VITALS: BP 102/43
--- NOTE | 2019-09-15 04:19 | NUR ---
I have reviewed this patient and I concur with the Shift Assessment completed by the Licensed Practical Nurse today this shift.
[2019-09-15 05:57] VITALS: BP 91/45
--- NOTE | 2019-09-15 07:43 | NUR ---
ALERT AND ORIENTED. LUNGS DIMINISHED TO BLL. HEART SOUNDS S1 AND S2 HEARD IN ALL VALDEZ. BOWEL SOUNDS ACTIVE X 4. SKIN INTACT WITHOUT REDNESS. IV TO LFA PATENT WITHOUT REDNESS. TELEMETRY IN PLACE SHOWING 90 NORMAL SINUS ON MONITOR. O2 IN PLACE AT 2L NC. DENIES NEEDS. BED LOW. CALL AMAYA AND PERSONAL ITEMS IN REACH. WILL CONTINUE TO MONITOR.
[2019-09-15 09:04] VITALS: BP 133/63
[2019-09-15 09:33] LABS: BASOPHILS 0.1 % (0-2); EOSINOPHILS 0 % (0-7); HEMATOCRIT 29.4 % (36.0-48.0); HEMOGLOBIN 8.9 g/dL (12-16); IMMATURE GRANULOCYTES 1.5 % (0-5); LYMPHOCYTES 4.6 % (15-50); MCH 28.9 pg (26.0-34.0); MCHC 30.3 g/dL (31.0-37.0); MCV 95.5 fL (80.0-100.0); MEAN PLATELET VOLUME 9.8 fL (7.4-10.4); MONOCYTES 5.4 % (2-11); NEUTROPHILS 88.4 % (40-80); RBC 3.08 10x6/uL (4.00-5.40); RDW 15.7 % (11.5-14.5); WBC 14.9 10x3/uL (4.8-10.8)
[2019-09-15 09:34] LABS: PLATELET COUNT 256 10x3/uL (130-400)
[2019-09-15 09:54] LABS: ANION GAP 15.1 mmol/L (8-16); CALCIUM 8.2 mg/dL (8.5-10.1); CARBON DIOXIDE 22.3 mmol/L (21.0-32.0); CREATININE - SERUM 1.3 mg/dL (0.6-1.3); POTASSIUM - SERUM 4.4 mmol/L (3.5-5.1)
[2019-09-15 10:10] LABS: ANA REFLEX - DIRECT Negative (Negative)
[2019-09-15 13:41] VITALS: BP 141/68
--- NOTE | 2019-09-15 14:07 | MORECARE ---
CASE MANAGEMENT DISCHARGE SUMMARY PATIENT: SOFÍA COREAS UNIT: [id number] ADM DATE: 09/12/19 AGE: 69 : 51 SEX: F ROOM/BED: D.2219 AUTHOR: ASHLEEDOC PHYSICIAN: REFERRING PHYSICIAN: ALEXUS ALANIS MD DATE OF SERVICE: 09/15/19 Discharge Plan Patient Name: SOFÍA COREAS Facility: [facility]:[place] : 1950 Planned Disposition: Home or Self Care Anticipated Discharge Date: Discharge Date: Expected LOS: Initial Reviewer: [email or web address] Initial Review Date: 09/12/2019 Generated: 09/15/19 3:07 pm Comments DCP- Discharge Planning Updated by [id number]: Jessi Lo on 09/15/19 1:[address] Patient Name: SOFÍA COREAS Admission Status: ER Accout number: [id number] Admission Date: 09-12-2019 : 1950 Admission Diagnosis: Attending: ALEXUS ALANIS Current LOS: 3 Anticipated DC Date: Planned Disposition: Home or Self Care Primary Insurance: MEDICARE A & B Discharge Planning Comments: CM met with patient to complete initial dc planning assessment. CM educated patient on the CM role and verbal consent given by patient to complete assessment. Patient lives at home where she is independent with her care. At discharge patient plans to return home and feels this is a safe discharge. She has home O2, portable O2, home concentrator, nebulizer and cane. She gets her Resp DME from [facility] [place]. RENE signed for [facility]. CM discussed availability of home health, rehab services, and medical equipment. She didn't want home health and stated that her son will be her driver license agent home. [facility] served and explained. Patient denied known discharge needs at this time. CM will continue to follow and will assist as needed with dc plans/needs. Pure Culture Operator: Jessi Lo DCPIA - Discharge Planning Initial Assessment Updated by [id number]: Jessi Lo on 09/15/19 2:02 pm * Is the patient Alert and Oriented? Yes * How many steps to enter\exit or inside your home? * PCP ANNABELLE * [facility] * Preadmission Environment Home Alone * ADLs Independent * Equipment Cane Nebulizer Oxygen * Other Equipment CONCENTRATOR PORTABLE O2 * List name and contact numbers for known caregivers / representatives who currently or will assist patient after discharge: HUE COREAS (SON) [phone] * Verbal permission to speak to the caregivers and representatives has been obtained from the patient. N/A * Community resources currently utilized None * Additional services required to return to the preadmission environment? No * Can the patient safely return to the preadmission environment? Yes * Has this patient been hospitalized within the prior 30 days at any hospital? No Coverage Notice Reviewer: [id number] Lo Notice Issued Date-Time: 09/15/2019 14:00 Notice Type: Patient Choice Letter Notice Delivered To: Patient Relationship to Patient: Oil Gas And Pipe Tester Name: Delivery Method: HAND - Hand Delivered Michelle Days: Prior Verbal Notification: Recipient Understood Notice: Yes Recipient Signature: Yes Med Rec Note Co-signed by Attending: Coverage Notice Comment: ALEXIS Reviewer: [email or web address] Dalila Lo Notice Issued Date-Time: 09/15/2019 14:00 Notice Type: IM Discharge Notice Notice Delivered To: Patient Relationship to Patient: Oil Gas And Pipe Tester Name: Delivery Method: HAND - Hand Delivered Michelle Days: Prior Verbal Notification: Recipient Understood Notice: Yes Recipient Signature: Yes Med Rec Note Co-signed by Attending: Coverage Notice Comment: Patient Name: SOFÍA COREAS Page 30617 at 1407 All edits/amendments must be made on the electronic document DICTATION DATE: 09/15/19 1407 OPTICAL INSTRUMENT REPAIRER: SEAN 09/15/19 1407 RPT#: [id number] DC DATE: STATUS: ADM IN [facility] [address] [place] [address] END OF REPORT
--- NOTE | 2019-09-15 14:09 | NUR ---
Nutrition follow-up: Diet: ADA consistent CHO PO Intake ~60% average of last 3 meals Labs reviewed; glucose elevated 2/2 steroid use Wt: 225# PO Intake good at this time RDN following.
[2019-09-15 17:51] VITALS: BP 120/66
--- NOTE | 2019-09-15 18:17 | NUR ---
RESTING IN BED. DENIES NEEDS. BED LOW. CALL AMAYA AND PERSONAL ITEMS IN REACH.
[2019-09-15 20:00] VITALS: BP 122/59
[2019-09-16 04:00] VITALS: BP 109/48
--- NOTE | 2019-09-16 04:11 | NUR ---
I have reviewed this patient and I concur with the Shift Assessment completed by the Licensed Practical Nurse today this shift.
[2019-09-16 04:53] LABS: BASOPHILS 0.1 % (0-2); EOSINOPHILS 0 % (0-7); HEMATOCRIT 29.2 % (36.0-48.0); HEMOGLOBIN 8.7 g/dL (12-16); IMMATURE GRANULOCYTES 5.6 % (0-5); LYMPHOCYTES 4.7 % (15-50); MCH 28.5 pg (26.0-34.0); MCHC 29.8 g/dL (31.0-37.0); MCV 95.7 fL (80.0-100.0); MEAN PLATELET VOLUME 9.8 fL (7.4-10.4); MONOCYTES 5.6 % (2-11); PLATELET COUNT 274 10x3/uL (130-400); RBC 3.05 10x6/uL (4.00-5.40); RDW 15.6 % (11.5-14.5)
[2019-09-16 05:02] LABS: ANION GAP 13.8 mmol/L (8-16); CALCIUM 8.4 mg/dL (8.5-10.1); CARBON DIOXIDE 23.3 mmol/L (21.0-32.0); CREATININE - SERUM 1.2 mg/dL (0.6-1.3)
[2019-09-16 05:03] LABS: WBC 10.3 10x3/uL (4.8-10.8)
[2019-09-16 05:09] LABS: POTASSIUM - SERUM 5.1 mmol/L (3.5-5.1)
[2019-09-16 09:16] VITALS: BP 99/50
--- NOTE | 2019-09-16 10:27 | NUR ---
ASSESSMENT PER FLOW SHEET. PT IS WITHOUT DISTRESS.CALL LIGHT IN REACH
--- NOTE | 2019-09-16 10:27 | NUR ---
HAS BEEN UP TO CHAIR.REMAINS WITHOUT NEEDS.
[2019-09-16 12:22] VITALS: BP 102/89
[2019-09-16 17:22] VITALS: BP 123/70
[2019-09-16 20:00] VITALS: BP 121/55
[2019-09-17 03:07] LABS: IMMUNOGLOBULIN E 1599 IU/mL (6-495)
[2019-09-17 04:00] VITALS: BP 111/57
[2019-09-17 05:09] LABS: BASOPHILS 0.1 % (0-2); EOSINOPHILS 0 % (0-7); HEMATOCRIT 29.2 % (36.0-48.0); HEMOGLOBIN 8.6 g/dL (12-16); IMMATURE GRANULOCYTES 6.9 % (0-5); LYMPHOCYTES 9.7 % (15-50); MCH 28.1 pg (26.0-34.0); MCHC 29.5 g/dL (31.0-37.0); MCV 95.4 fL (80.0-100.0); MEAN PLATELET VOLUME 9.6 fL (7.4-10.4); MONOCYTES 8.7 % (2-11); NEUTROPHILS 74.6 % (40-80); PLATELET COUNT 300 10x3/uL (130-400); RBC 3.06 10x6/uL (4.00-5.40); RDW 15.5 % (11.5-14.5)
[2019-09-17 05:23] LABS: ANION GAP 9.7 mmol/L (8-16); CALCIUM 8.1 mg/dL (8.5-10.1); CARBON DIOXIDE 25.6 mmol/L (21.0-32.0); CREATININE - SERUM 1.3 mg/dL (0.6-1.3); POTASSIUM - SERUM 5.3 mmol/L (3.5-5.1)
[2019-09-17 09:48] VITALS: BP 117/78
--- NOTE | 2019-09-17 10:03 | NUR ---
ALERT AND ORIENTED. LUNGS CLEAR BILATERALLY. HEART SOUNDS S1 AND S2 HEARD IN ALL VALDEZ. BOWEL SOUNDS ACTIVE X 4. SKIN INTACT WITHOUT REDNESS. IV TO LFA PATENT WITHOUT REDNESS. DENIES PAIN. DENIES NEEDS. SITTING IN CHAIR AT BEDSIDE. CALL AMAYA AND PERSONAL ITEMS IN REACH. WILL CONTINUE TO MONITOR.
--- NOTE | 2019-09-17 13:00 | NUR ---
SITTING IN CHAIR AT BEDSIDE. DENIES NEEDS. WILL CONTINUE TO MONITOR.
[2019-09-17 13:40] VITALS: BP 124/62
[2019-09-17 16:28] VITALS: BP 125/66
[2019-09-18 04:00] VITALS: BP 136/55
[2019-09-18 07:41] LABS: BASOPHILS 0.2 % (0-2); EOSINOPHILS 0.1 % (0-7); HEMATOCRIT 30.5 % (36.0-48.0); HEMOGLOBIN 9.1 g/dL (12-16); IMMATURE GRANULOCYTES 8.8 % (0-5); LYMPHOCYTES 10.9 % (15-50); MCH 28.4 pg (26.0-34.0); MCHC 29.8 g/dL (31.0-37.0); MCV 95.3 fL (80.0-100.0); MEAN PLATELET VOLUME 9.3 fL (7.4-10.4); MONOCYTES 8.2 % (2-11); NEUTROPHILS 71.8 % (40-80); PLATELET COUNT 327 10x3/uL (130-400); RDW 15.2 % (11.5-14.5)
[2019-09-18 07:42] LABS: ANION GAP 9.9 mmol/L (8-16); CALCIUM 8.5 mg/dL (8.5-10.1); CARBON DIOXIDE 27.4 mmol/L (21.0-32.0); CREATININE - SERUM 1.1 mg/dL (0.6-1.3); POTASSIUM - SERUM 5.3 mmol/L (3.5-5.1)
--- NOTE | 2019-09-18 08:00 | NUR ---
ASSESSMENT PER FLOW SHEET. PT IS WITHOUT DISTRESS.CALL LIGHT IN REACH
[2019-09-18 08:28] VITALS: BP 123/68
[2019-09-18] MEDS ORDERED: OMNICEF300 MG PO (12:41)
[2019-09-18] MEDS ORDERED: SINGULAIR10 MG PO (12:41)
[2019-09-18] MEDS ORDERED: PREDNISONE20 MG PO (12:49)
--- NOTE | 2019-09-18 13:09 | MORECARE ---
CASE MANAGEMENT DISCHARGE SUMMARY PATIENT: SOFÍA COREAS UNIT: [id number] ADM DATE: 09/12/19 AGE: 69 : 52 SEX: F ROOM/BED: D.2219 AUTHOR: SHAY ROSADO PHYSICIAN: REFERRING PHYSICIAN: ALEXUS ALANIS MD DATE OF SERVICE: 09/18/19 Discharge Plan Patient Name: SOFÍA COREAS Facility: [facility]:[place] : 1950 Planned Disposition: Home or Self Care Anticipated Discharge Date: Discharge Date: Expected LOS: Initial Reviewer: [email or web address] Initial Review Date: 09/12/2019 Generated: 09/18/19 2:08 pm Comments DCP- Discharge Planning Updated by [email or web address]: Wilma Davidson on 09/18/19 12:[address] Patient Name: SOFÍA COREAS Encounter No: [id number] : 1950 Primary Insurance: MEDICARE A & B Anticipated DC Date: Planned Disposition: Home or Self Care External Planned Provider: : DCP follow-up note: Patient in agreement with discharge plan. No changes to plan. SON WILL PARTNER MANAGEMENT CONSULTANT FOR TRANSPORT. IMM SIGNED. Case management will follow and assist as needed. Wilma Davidson DCP- Discharge Planning Updated by [email or web address]: Jessi Lo on 09/15/19 1:[address] Patient Name: SOFÍA COREAS Admission Status: ER Accout number: [id number] Admission Date: 09-12-2019 : 1950 Admission Diagnosis: Attending: ALEXUS ALANIS Current LOS: 3 Anticipated DC Date: Planned Disposition: Home or Self Care Primary Insurance: MEDICARE A & B Discharge Planning Comments: CM met with patient to complete initial dc planning assessment. CM educated patient on the CM role and verbal consent given by patient to complete assessment. Patient lives at home where she is independent with her care. At discharge patient plans to return home and feels this is a safe discharge. She has home O2, portable O2, home concentrator, nebulizer and cane. She gets her Resp DME from [facility]. RENE signed for [facility]. CM discussed availability of home health, rehab services, and medical equipment. She didn't want home health and stated that her son will be her trailer tank truck driver home. IMM served and explained. Patient denied known discharge needs at this time. CM will continue to follow and will assist as needed with dc plans/needs. Floor Refinisher: Jessi Lo DCPIA - Discharge Planning Initial Assessment Updated by [email or web address]: Jessi Lo on 09/15/19 2:02 pm * Is the patient Alert and Oriented? Yes * How many steps to enter\exit or inside your home? * PCP ANNABELLE * Pharmacy [facility] * Preadmission Environment Home Alone * ADLs Independent * Equipment Cane Nebulizer Oxygen * Other Equipment CONCENTRATOR PORTABLE O2 * List name and contact numbers for known caregivers / representatives who currently or will assist patient after discharge: HUE COREAS (SON) [phone] * Verbal permission to speak to the caregivers and representatives has been obtained from the patient. N/A * Community resources currently utilized None * Additional services required to return to the preadmission environment? No * Can the patient safely return to the preadmission environment? Yes * Has this patient been hospitalized within the prior 30 days at any hospital? No Coverage Notice Reviewer: [id number] - Jessi Lo Notice Issued Date-Time: 09/15/2019 14:00 Notice Type: Patient Choice Letter Notice Delivered To: Patient Relationship to Patient: Photographic Restorer Name: Delivery Method: HAND - Hand Delivered Michelle Days: Prior Verbal Notification: Recipient Understood Notice: Yes Recipient Signature: Yes Med Rec Note Co-signed by Attending: Coverage Notice Comment: ALEXIS Reviewer: [id number] - Jessi Lo Notice Issued Date-Time: 09/15/2019 14:00 Notice Type: IM Discharge Notice Notice Delivered To: Patient Relationship to Patient: Photographic Restorer Name: Delivery Method: HAND - Hand Delivered Michelle Days: Prior Verbal Notification: Recipient Understood Notice: Yes Recipient Signature: Yes Med Rec Note Co-signed by Attending: Coverage Notice Comment: Reviewer: [email or web address] - Wilma Davidson Notice Issued Date-Time: 09/18/2019 13:06 Notice Type: IM Discharge Notice Notice Delivered To: Patient Relationship to Patient: Photographic Restorer Name: Delivery Method: HAND - Hand Delivered Michelle Days: Prior Verbal Notification: Recipient Understood Notice: Yes Recipient Signature: Yes Med Rec Note Co-signed by Attending: Coverage Notice Comment: Last DP export: 09/15/19 1:07 p Patient Name: SOFÍA COREAS Page [phone] at 1309 All edits/amendments must be made on the electronic document DICTATION DATE: 09/18/191307 PRODUCT ANALYST: SEAN 09/18/19 1308 RPT#: [id number] DC DATE: STATUS: ADM IN [facility] [address] [place] [address] END OF REPORT
--- NOTE | 2019-09-18 13:30 | NUR ---
DISCHARGE INSTRUCTIONS,STATES UNDERSTANDING. IV DCD WITH CATH TIP INTACT. PT IS WAITING ON RIDE HOME
--- NOTE | 2019-09-18 14:04 | NUR ---
LEFT UNIT VIA WHEELCHAIR FOR TRANSPORT HOME
--- NOTE | 2019-09-19 15:01 | MORECARE ---
CASE MANAGEMENT DISCHARGE SUMMARY PATIENT: SOFÍA COREAS UNIT: [id number] ADM DATE: 09/12/19 AGE: 69 : 52 SEX: F ROOM/BED: D.2219 AUTHOR: SHAY ROSADO PHYSICIAN: REFERRING PHYSICIAN: ALEXUS ALANIS MD DATE OF SERVICE: 09/19/19 Discharge Plan Patient Name: SOFÍA COREAS Facility: [facility]:[place] : 1950 Planned Disposition: Home or Self Care Anticipated Discharge Date: Discharge Date: 09/18/2019 Expected LOS: Initial Reviewer: [email or web address] Initial Review Date: 09/12/2019 Generated: 09/19/19 4:01 pm Comments DCP- Discharge Planning Updated by [id number]: Wilma Davidson on 09/18/19 12:[address] Patient Name: SOFÍA COREAS Encounter No: [id number] : 1950 Primary Insurance: MEDICARE A & B Anticipated DC Date: Planned Disposition: Home or Self Care External Planned Provider: : DCP follow-up note: Patient in agreement with discharge plan. No changes to plan. SON WILL FOOD SERVICES MANAGER FOR TRANSPORT. IMM SIGNED. Case management will follow and assist as needed. Wilma Davidson DCP- Discharge Planning Updated by [email or web address]: Jessi Lo on 09/15/19 1:[address] Patient Name: SOFÍA COREAS Admission Status: ER Accout number: [id number] Admission Date: 09-12-2019 : 1950 Admission Diagnosis: Attending: ALEXUS ALANIS Current LOS: 3 Anticipated DC Date: Planned Disposition: Home or Self Care Primary Insurance: MEDICARE A & B Discharge Planning Comments: CM met with patient to complete initial dc planning assessment. CM educated patient on the CM role and verbal consent given by patient to complete assessment. Patient lives at home where she is independent with her care. At discharge patient plans to return home and feels this is a safe discharge. She has home O2, portable O2, home concentrator, nebulizer and cane. She gets her Resp DME from [facility]. RENE signed for [facility]. CM discussed availability of home health, rehab services, and medical equipment. She didn't want home health and stated that her son will be her seasonal driver home. IMM served and explained. Patient denied known discharge needs at this time. CM will continue to follow and will assist as needed with dc plans/needs. Logging Equipment Mechanic: Jessi Lo DCPIA - Discharge Planning Initial Assessment Updated by [email or web address]: Jessi Lo on 09/15/19 2:02 pm * Is the patient Alert and Oriented? Yes * How many steps to enter\exit or inside your home? * PCP ANNABELLE * [facility]acy [facility] * Preadmission Environment Home Alone * ADLs Independent * Equipment Cane Nebulizer Oxygen * Other Equipment CONCENTRATOR PORTABLE O2 * List name and contact numbers for known caregivers / representatives who currently or will assist patient after discharge: HUE COREAS (SON) [phone] * Verbal permission to speak to the caregivers and representatives has been obtained from the patient. N/A * Community resources currently utilized None * Additional services required to return to the preadmission environment? No * Can the patient safely return to the preadmission environment? Yes * Has this patient been hospitalized within the prior 30 days at any hospital? No Coverage Notice Reviewer: [id number] - Jessi Lo Notice Issued Date-Time: 09/15/2019 14:00 Notice Type: Patient Choice Letter Notice Delivered To: Patient Relationship to Patient: Director Craft Center Name: Delivery Method: HAND - Hand Delivered Michelle Days: Prior Verbal Notification: Recipient Understood Notice: Yes Recipient Signature: Yes Med Rec Note Co-signed by Attending: Coverage Notice Comment: ALEXIS Reviewer: [email or web address] - Jessi Lo Notice Issued Date-Time: 09/15/2019 14:00 Notice Type: IM Discharge Notice Notice Delivered To: Patient Relationship to Patient: Director Craft Center Name: Delivery Method: HAND - Hand Delivered Michelle Days: Prior Verbal Notification: Recipient Understood Notice: Yes Recipient Signature: Yes Med Rec Note Co-signed by Attending: Coverage Notice Comment: Reviewer: [id number] Dalila Davidson Notice Issued Date-Time: 09/18/2019 13:06 Notice Type: IM Discharge Notice Notice Delivered To: Patient Relationship to Patient: Director Craft Center Name: Delivery Method: HAND - Hand Delivered Michelle Days: Prior Verbal Notification: Recipient Understood Notice: Yes Recipient Signature: Yes Med Rec Note Co-signed by Attending: Coverage Notice Comment: Last DP export: 09/18/19 12:09 p Patient Name: VANE COREASE Page [phone] at 1501 All edits/amendments must be made on the electronic document DICTATION DATE: 09/19/19 1501 BASEBALL INSPECTOR AND REPAIRER: SEAN 09/19/19 1501 RPT#: [id number] DC DATE:09/18/19 STATUS: DIS IN [facility] [address] [place] [address] END OF REPORT
== END 2019-09-18 14:04 | disposition home or self-care (01) | DRG 193 ==
LOC: D.ER 12:24 → D.MS 14:35
PROVIDERS: Emergency Medicine; Internal Medicine Pulmonary Disease; ADMIT Family Medicine; ATTEND Family Medicine
DX: J18.9 Pneumonia, unspecified organism (principal); J96.21 Acute and chronic respiratory failure with hypoxia; Z68.42 Body mass index [BMI] 45.0-49.9, adult; J45.909 Unspecified asthma, uncomplicated; E86.0 Dehydration; E66.01 Morbid (severe) obesity due to excess calories; I10 Essential (primary) hypertension; E78.5 Hyperlipidemia, unspecified; E11.9 Type 2 diabetes mellitus without complications

== ENCOUNTER → 2019-11-09 09:26 | Outpatient (CLI) | payer MEDICARE, OTHER ==
[2019-09-13 00:02] VITALS: BMI 39.9
[~2019-11-09 09:26] MED LIST changes: +ECHINACEA PO; +OMNICEF300 MG PO; +OXYBUTYNIN CHLOR5 M1 PO; +PREDNISONE20 MG PO; +SINGULAIR10 MG PO
== END | disposition home or self-care (01) ==
LOC: D.CT 09:26
PROVIDERS: ATTEND Family Medicine
DX: R04.2 Hemoptysis (principal)

== ENCOUNTER 2019-11-28 09:36 | Inpatient (IN) | payer MEDICARE, OTHER ==
[~2019-11-28] VITALS: Ht 160 cm; Wt 100.2 kg
[2019-11-28] VITALS (9 sets, daily range): BP systolic 69–106; BP diastolic 32–66; BMI 39.2
[2019-11-28] MEDS ORDERED: LYRICA75 MG PO (09:42)
--- NOTE | 2019-11-28 09:51 | NUR ---
IN ROOM WITH
--- NOTE | 2019-11-28 09:51 | NUR ---
XRAY IN ROOM WITH PT. LAB ALSO HERE
[2019-11-28 10:06] LABS: BASOPHILS 0.3 % (0-2); EOSINOPHILS 1.3 % (0-7); HEMATOCRIT 37.9 % (36.0-48.0); HEMOGLOBIN 11.2 g/dL (12-16); IMMATURE GRANULOCYTES 0.3 % (0-5); LYMPHOCYTES 21.2 % (15-50); MCH 29.9 pg (26.0-34.0); MCHC 29.6 g/dL (31.0-37.0); MCV 101.1 fL (80.0-100.0); MEAN PLATELET VOLUME 9.5 fL (7.4-10.4); MONOCYTES 10.4 % (2-11); NEUTROPHILS 66.5 % (40-80); PLATELET COUNT 226 10x3/uL (130-400); RBC 3.75 10x6/uL (4.00-5.40); RDW 17.4 % (11.5-14.5); WBC 11.1 10x3/uL (4.8-10.8)
[2019-11-28 10:11] LABS: APTT 33.1 SECONDS (22.8-39.4); INR 0.99 (0.85-1.17)
--- NOTE | 2019-11-28 10:13 | NUR ---
PTS BLOOD PRESSURE READING LOW, STATES LAST TIME IT WAS LOW SHE HAD PNEUMONIA. OTHER VITAL SIGNS ARE NORMAL. AFEBRILE, PULSE 72, RESP. 18. NO DISTRESS NOTED. O2 SATS 98%.
--- NOTE | 2019-11-28 10:15 | NUR ---
BOLUS OF NS INFUSING. WARM BLANKET FOR COMFORT.
[2019-11-28 10:16] LABS: CALC OSMOLALITY 290 mosm/kg (275-300); CALCIUM 9.1 mg/dL (8.5-10.1); CARBON DIOXIDE 24.7 mmol/L (21.0-32.0); CHLORIDE - SERUM 102 mmol/L (98-107); CREATININE - SERUM 2.6 mg/dL (0.6-1.3); GLUCOSE 99 mg/dL (74-106); POTASSIUM - SERUM 5.3 mmol/L (3.5-5.1); SODIUM 138 mmol/L (136-145); UREA NITROGEN 55 mg/dL (7-18); eGFR NON AFRICAN AMERICAN 19 mL/min (90-120)
--- NOTE | 2019-11-28 10:19 | NUR ---
MANUAL BP 78/38
--- NOTE | 2019-11-28 10:23 | NUR ---
PT TALKING ON CELL PHONE, NO DISTRESS NOTED.
[2019-11-28 10:31] LABS: ALBUMIN 3.1 g/dL (3.4-5.0); ALKALINE PHOSPHATASE 72 U/L (30-120); ALT (SGPT) 14 U/L (10-68); BILIRUBIN - TOTAL 0.34 mg/dL (0.2-1.3); CKMB 0.5 U/L (0.0-3.6); CREATINE KINASE 25 UL (21-215); PROTEIN - SERUM 6.2 g/dL (6.4-8.2); TROPONIN-I < 0.017 ng/mL (0.000-0.060)
--- NOTE | 2019-11-28 10:40 | NUR ---
DR. SALAZAR HERE, SPLINT PLACED ON PTS LEFT ANKLE, PT CHARLENE. WELL. BLOOD PRESSURE 86/42
[2019-11-28 10:54] LABS: BILIRUBIN NEGATIVE (NEGATIVE); GLUCOSE NEGATIVE (NEGATIVE); KETONE NEGATIVE (NEGATIVE); NITRITE NEGATIVE (NEGATIVE); SPECIFIC GRAVITY 1.015 (1.005-1.020); UROBILINOGEN NORMAL (NORMAL)
[2019-11-28 10:57] LABS: BACTERIA FEW /hpf (NEGATIVE); EPITHELIAL CELLS 0-5 /hpf (0-5); RED CELLS - URINE 0-5 /hpf (0-5); YEAST >1+ /hpf (NONE SEEN)
[2019-11-28] MEDS ORDERED: BREO ELLIPTA 21 EACH (11:52)
--- NOTE | 2019-11-28 12:01 | NUR ---
PATIENT ADMITTED TO ROOM 2228. ADMISSION COMPLETE. BP 82/32. AWARE. NS BOLUS RUNNING NOW AND WILL RECHECK BP. PATIENT REQUESTING HILL. STATES WOULD RATHER NOT. FALL PRECAUTIONS IN PLACE. WILL CONTINUE TO MONITOR.
--- NOTE | 2019-11-28 12:04 | NUR ---
EDIT TO ADMISSION HISTORY. PATIENT KEEPING PURSE IN ROOM. ONLY LOCKING UP WALLET.
--- NOTE | 2019-11-28 12:10 | NUR ---
CONSENTS OBTAINED FOR PROCEDURE.
--- NOTE | 2019-11-28 12:12 | NUR ---
SPOKE WITH ER ADMISSION WHO STATES WILL COME GET PATIENT'S WALLET.
--- NOTE | 2019-11-28 16:01 | NUR ---
SPOKE WITH MD TO NOTIFY THAT PATIENT NOW HAS WET COUGH SINCE RECEIVING BOLUS OF FLUIDS AND FLUIDS AT 200ML/HR. ALSO NOTIFIED THAT PATIENT IS IN PAIN. STATES TO STOP FLUIDS. GIVE ONE TIME DOSE TRAMADOL 50MG PO NOW AND MONITOR BP. STATES TO ALSO CONSULT NEPHROLOGY.
--- NOTE | 2019-11-28 19:55 | NUR ---
PATIENT RESTING IN BED WITH NO S/S OF DISTRESS AND DENIES NEEDS AT THIS TIME. VSS. BED IN LOWEST POSITION AND CALL LIGHT WITHIN REACH. ENCOURAGED THE PATIENT TO CALL IF SHE HAS NEEDS. WILL CONTINUE TO MONITOR.
[2019-11-29] VITALS: BP 111/51
[2019-11-29 04:00] VITALS: BP 108/55
[2019-11-29 05:46] LABS: BASOPHILS 0.1 % (0-2); EOSINOPHILS 1.8 % (0-7); HEMATOCRIT 34.9 % (36.0-48.0); HEMOGLOBIN 10.2 g/dL (12-16); IMMATURE GRANULOCYTES 0.3 % (0-5); LYMPHOCYTES 17.3 % (15-50); MCH 29.1 pg (26.0-34.0); MCHC 29.2 g/dL (31.0-37.0); MCV 99.7 fL (80.0-100.0); MEAN PLATELET VOLUME 9.8 fL (7.4-10.4); MONOCYTES 11.5 % (2-11); PLATELET COUNT 244 10x3/uL (130-400); RDW 16.9 % (11.5-14.5); WBC 10.9 10x3/uL (4.8-10.8)
[2019-11-29 05:52] LABS: ALBUMIN 2.8 g/dL (3.4-5.0); ANION GAP 11.2 mmol/L (8-16); BILIRUBIN - TOTAL 0.21 mg/dL (0.2-1.3); CALCIUM 8.7 mg/dL (8.5-10.1); CARBON DIOXIDE 23.9 mmol/L (21.0-32.0); POTASSIUM - SERUM 5.1 mmol/L (3.5-5.1)
[2019-11-29 06:25] LABS: CREATININE - SERUM 1.6 mg/dL (0.6-1.3)
[2019-11-29 07:48] VITALS: BP 116/63
--- NOTE | 2019-11-29 09:01 | HP ---
PATIENT: SOFÍA COREAS MEDICAL RECORD: [id number] ACCOUNT: [id number] LOCATION:D.MS [id number] : [birth year] ADMISSION DATE: 11/28/19 PCP: ALEXUS ALANIS MD HISTORY AND PHYSICAL EXAMINATION DATE OF ADMISSION: 11/28/2019 CHIEF COMPLAINT: She presents to the Emergency Department complaining of left ankle pain after she fell at home. The patient tells me she was in the bathroom and fell from a standing position. She denied any syncopal episode to me, although it is reported in the ER that there was near syncope. In the ER, x-ray showed a bimalleolar left ankle fracture. Her blood pressure was noted to be 89/40 with normal heart rate and normal pulse ox. Her BUN and creatinine were 55 and 2.6. Urinalysis in the ER showed a few bacteria, 2+ leukocyte esterase. There were 0-5 epithelial cells and 1+ yeast with her low blood pressure and acute kidney injury. She was seen by Dr. Perdue in the ER for her bimalleolar left ankle fracture. PAST MEDICAL AND SURGICAL HISTORY: She has a history of diabetes, hypertension, COPD, hyperlipidemia, and obesity. She was recently admitted into the hospital with pneumonia. She has actually been admitted at least twice for pneumonia. She was also admitted to the hospital on 04/05/2019 with weakness and acute renal failure after she was started on triamterene/HCTZ. She is not taking that now at all. Past surgical history; hysterectomy, tonsillectomy, and gastric bypass. ALLERGIES: TO CEDAR WOOD. SOCIAL HISTORY: Retired RN, , lives alone. FAMILY HISTORY: Father at 75 of COPD. Mother at 61 from complications of ALS. HABITS: No tobacco. Rare alcohol. No illicit drug use. HOME MEDICATIONS: Include Lotensin 40 mg at bedtime; lovastatin 20 mg at bedtime; aspirin 81 mg a day; citalopram 40 mg a day; ibuprofen 800 mg t.i.d. p.r.n. pain; Lyrica, recently started 75 mg twice a day for back pain; Breo Ellipta 1 inhalation once a day; Singulair 10 mg at bedtime; probiotic 1 tablet daily; Actos 30 mg daily; metformin 1000 mg b.i.d.; oxybutynin 5 mg twice a day; multivitamin once a day. PHYSICAL EXAMINATION: VITAL SIGNS: Temperature 97.5, pulse 83, respirations 20, blood pressure 101/43, O2 sat 93%. GENERAL: She is awake and alert. She does not appear to be in acute distress. SKIN: Warm and dry. HEENT: Grossly within normal limits. NECK: Supple. CARDIAC: Regular rate and rhythm. LUNGS: Clear. ABDOMEN: Soft, nontender, obese. EXTREMITIES: No edema. The left foot and ankle are in dressing. LABORATORY DATA: Urine; yellow, slightly cloudy, trace protein, trace blood, 2+ HISTORY AND PHYSICAL [id number] LYUDMILA,SOFÍA leukocyte esterase, 0-5 red blood cells, 10-25 white blood cells, 0-5 epithelial cells, few bacteria, 1+ yeast. Urine culture is done. CBC with a white count of 11,100, hemoglobin 11.2, hematocrit 37.9, 66% neutrophils, 21% lymphocytes. INR is 0.99. Sodium 138, potassium 5.3, chloride 102, CO2 24.7, BUN 55, creatinine 2.6, glucose 99, and calcium 9.1. Liver enzymes were all normal. Troponin less than 0.017. Albumin a little low at 3.1. DIAGNOSTIC DATA: Chest x-ray is done showing no acute cardiopulmonary process and x-ray of the left ankle shows a distal tibial and fibular fractures with distal displacement of the medial malleolus at approximately 5 mm. ASSESSMENT: 1. Left bimalleolar ankle fracture. 2. Urinary tract infection. 3. Low blood pressure. 4. Acute kidney injury. PLAN: She has been given IV fluids in the ER. We will call the lab and see if they can do a lactic acid level. If her blood pressure gets lower, we may need to move her to the unit and help support blood pressure. She is started on Rocephin for UTI. Dr. Hernandez saw the patient for her fracture and blood pressure medicines were held. Other tests and procedures as warranted. TRANSINT:[id number] Voice Confirmation ID: [id number] DOCUMENT ID: [id number] ALEXUS LAANIS MD at 0901 CC: [id number] DICTATION DATE: 11/28/191828 PAINTING WORKER: 11/29/19 0247 [facility] [place] [id number] [place] [address]
[2019-11-29 12:27] VITALS: BP 128/71
[2019-11-29 13:34] VITALS: Ht 160 cm; Wt 100.2 kg
[2019-11-29 16:18] VITALS: BP 93/54
[2019-11-29 19:53] LABS: CREATININE - URINE 29.5 mg/dL (30-125); PRO/CRE RATIO URINE 0.9 mg/g; PROTEIN - URINE 27.3 mg/dL (0.0-11.9)
[2019-11-29 21:50] VITALS: BP 147/62
[2019-11-30] VITALS (7 sets, daily range): BP systolic 107–117; BP diastolic 39–78
[2019-11-30 05:51] LABS: BASOPHILS 0.2 % (0-2); EOSINOPHILS 3.2 % (0-7); HEMATOCRIT 35.5 % (36.0-48.0); HEMOGLOBIN 10.3 g/dL (12-16); IMMATURE GRANULOCYTES 0.3 % (0-5); LYMPHOCYTES 17.2 % (15-50); MCH 29.5 pg (26.0-34.0); MEAN PLATELET VOLUME 9.8 fL (7.4-10.4); MONOCYTES 12.6 % (2-11); NEUTROPHILS 66.5 % (40-80); PLATELET COUNT 242 10x3/uL (130-400); RBC 3.49 10x6/uL (4.00-5.40); RDW 16.5 % (11.5-14.5); WBC 9.5 10x3/uL (4.8-10.8)
[2019-11-30 05:57] LABS: INR 1.02 (0.85-1.17); PROTIME 13.4 SECONDS (11.6-15.0)
[2019-11-30 06:18] LABS: MCV 101.7 fL (80.0-100.0)
[2019-11-30 06:21] LABS: ANION GAP 11.6 mmol/L (8-16); CALCIUM 9.2 mg/dL (8.5-10.1); CARBON DIOXIDE 25.6 mmol/L (21.0-32.0); PHOSPHOROUS 3.4 mg/dL (2.5-4.9); POTASSIUM - SERUM 5.2 mmol/L (3.5-5.1)
--- NOTE | 2019-11-30 13:30 | NUR ---
TO OR VIA BED
--- NOTE | 2019-11-30 19:30 | NUR ---
PT LYING IN BED ASLEEP, AROUSES SLIGHTLY TO VERBAL STIMULI BUT IMMEDIATELY FALLS BACK ASLEEP. DAY NURSE STATES PT HAS BEEN SLEEPING SINCE SURGERY. VSS. IV RIGHT FA INFUSING NS @ KVO. O2 6L/HFNC. LEFT ANKLE DRESSING CDI, PROPPED ON PILLOW. PT FAMILY CALLED CONCERNED PT DID NOT ANSWER PHONE, LET FAMILY KNOW PT WAS SLEEPING AND WOULD HAVE HER CALL WHEN SHE AWAKENS. BED ALARM ON. WILL CTM
--- NOTE | 2019-11-30 21:30 | NUR ---
PT STILL SLEEPING, WILL NOT WAKE UP AND TAKE MEDS. WHEN SHAKING PT AND CALLING NAME SHE BEGINS MOVING AROUND AND GRABBING AT THINGS BUT DOES NOT OPEN EYES OR ANSWER QUESTIONS. VSS. FSBS 186. HELD INSULIN AT THIS TIME D/T PT NOT EATING ALL DAY BECAUSE OF SURGERY AND BEGING SEDATED. WILL CTM
--- NOTE | 2019-12-01 01:00 | NUR ---
PT AWAKE AND PULLING AT OXYGEN AND IV. SWINGING LEGS OFF BED TRYING TO GET UP. PT TOLD MULTIPLE TIMES SHE IS NOT TO GET UP. DOES NOT ANSWER QUESTIONS BUT FOLLOWS COMMANDS TO GET BACK IN BED. PT VOIDED IN BED. LINENS CHANGED, LAKEISHA CARE PROVIDED. PT ABLE TO FOLLOW COMMANDS TO TURN IN BED BUT SEEMS CONFUSED TO SITUATION
--- NOTE | 2019-12-01 07:40 | NUR ---
PT LYING IN BED, NO S/SX OF DISTRESS, PT IV IN RT FA CDI, PATENT, PT ON 6L HF/NC O2 IS AT 98% LEFT ANKLE WRAPPED IN BHAVYA BANDAGE. I/S AT BEDSIDE, K+ AT 5.2 THIS MORNING, WILL CONTINUE TO MONIOTR. PT EASILY AWAKENED AND ANSWERD QUESTIONS, ABLE TO WIGGLE TOES, NO NEEDS/ CONCERNS VOICED, ASSUME PT CARE
--- NOTE | 2019-12-01 07:48 | OP ---
PATIENT NAME: SOFÍA UREÑA MEDICAL RECORD: [id number] :[birth year] LOCATION:D.MS [id number] ADMISSION DATE:11/28/19 SURGEON: JHOAN SALAZAR DO DATE OF OPERATION: 11/30/2019 PROCEDURE PERFORMED: Left ankle open reduction internal fixation. PREOPERATIVE DIAGNOSIS: Left ankle bimalleolar fracture with subluxation. POSTOPERATIVE DIAGNOSIS: Left ankle bimalleolar fracture with subluxation. INDICATIONS: Ms. Ureña is a 69-year-old female who fell on Friday and sustained a bimalleolar ankle fracture with subluxation of the ankle laterally. I saw her in the ER. She was then admitted because she could not bear weight or function on her own and she was admitted to medicine and then put on the schedule for today. She was aware of the risks including infection, bleeding, damage to nerves and vessels, need for further surgery, malunion, nonunion, continued pain, ankle arthritis, blood clots, and even and she signed the consent. SURGEON: Jhoan Salazar DO DESCRIPTION OF PROCEDURE: The patient was taken to the operative suite after receiving a block by anesthesia in the preoperative area, laid in supine position, given 2 grams Ancef. The left lower extremity was then prepped and draped in sterile fashion. She was sedated and intubated. Once she was prepped and draped, a timeout was performed, everyone was in agreement with correct side, site, patient and procedure. I then began by exsanguinating the left lower extremity, tourniquet was inflated to 350 mmHg and was up for 30 minutes. The ankle incision was then made on the lateral side. Gentle dissection made down to the fibula and was reduced and held in place with [id number] clamp. The Hawk locking plate was then put laterally, pinned into place and then confirmed to be in good position on AP and lateral and then put distal locking screws first and then two cortical screws in the shaft and 1 locking screw in the shaft; then went to the medial side, made a curvilinear incision over the medial malleolus, reduced the fracture, put 2 cannulated screws and confirmed to be in good position on AP and lateral x-ray, partially threaded screws. The ankle was then stressed and seen to open a little medially and then put the clamp on to clamp down the ankle. I put a syndesmotic ZipTight across with a drill first and then ran a 3-0 and cinched down, closing the medial clear space nicely. The sutures were then cut and the tourniquet let down and bleeding was coagulated with a pickup and a Bovie. The sites were then irrigated and closed with 2-0 Vicryl in inverted interrupted fashion. ZipLine was placed over them. She was then placed in a well-padded 4 x 30 splint with ABDs on the heel and around the ankle and wrapped in cast padding and then a 4 x 30 Ortho-Glass splint and secured in place with 6-inch Kia wrap. She was then awakened and taken to recovery in stable condition. BLOOD LOSS: Minimal. COMPLICATIONS: None. TRANSINT:[id number] Voice Confirmation ID: [id number] DOCUMENT ID: [id number] OPERATIVE REPORT [id number] SOFÍA UREÑA MICHAEL D, DO at 0748 CC: [id number] DICTATION DATE: 11/30/19 1558 HARDBOARD COATING MACHINE OPERATOR: 11/30/19 2332 ADM IN [facility] [address] [place] [address]
[2019-12-01 08:00] VITALS: BP 110/39
--- NOTE | 2019-12-01 10:19 | NUR ---
PT IS STILL VERY CONFUSED AND UNABLE TO FOLLOW INMSTRUCTIONS, PT CONTINUES TO SAY YES TO EVERYTHING, ASKED TO WIGGLE TOES AND PT UNABLE TO COOPERATE. FULL LINEN CHANGE WITH ASSISTANCE FROM SCENARIO WRITER. WILL CONTINUE WITH PLAN OF CARE
--- NOTE | 2019-12-01 11:00 | NUR ---
PT IS MORE AWAKE, ABLE TO ANSWER QUESTION AND FOLLOW DIRECTIONS, STILL A BIT CONFUSED, NO PAIN MEDS GIVEN APPLIED ICE TO PT LT ANKLE CONTINUE WITH PLAN OF CARE
[2019-12-01 12:00] VITALS: BP 101/74
--- NOTE | 2019-12-01 14:42 | NUR ---
L ANKLE ORIF YESTERDAY. WOUND CARE WILL FOLLOW NEEDED.
--- NOTE | 2019-12-01 15:11 | MORECARE ---
CASE MANAGEMENT DISCHARGE SUMMARY PATIENT: SOFÍA COREAS UNIT: [id number] ADM DATE: 11/28/19 AGE: 69 : 52 SEX: F ROOM/BED: D.2228 AUTHOR: SHAY ROSADO PHYSICIAN: REFERRING PHYSICIAN: ALEXUS ALANIS MD DATE OF SERVICE: 12/01/19 Discharge Plan Patient Name: SOFÍA COREAS [facility] [facility] 1950 Planned Disposition: Anticipated Discharge Date: Discharge Date: Expected LOS: Initial Reviewer: [email or web address] Initial Review Date: 11/28/2019 Generated: 12/01/19 4:10 pm DCPIA - Discharge Planning Initial Assessment Updated by [email or web address]: Wilma Davidson on 12/01/19 3:04 pm * Is the patient Alert and Oriented? No * PCP ANNABELLE * Pharmacy [facility] * Preadmission Environment Home Alone * ADLs Independent * Other Equipment CANE,NEB, OXYGEN, PORT O2 * Community resources currently utilized None * Additional services required to return to the preadmission environment? No * Can the patient safely return to the preadmission environment? No * Has this patient been hospitalized within the prior 30 days at any hospital? No Patient Name: SOFÍA COREAS Page 19447 at 1511 All edits/amendments must be made on the electronic document DICTATION DATE: 12/01/19 151 GENERAL SERVICE OFFICER: SEAN 12/01/19 1510 RPT#: [id number] DC DATE: STATUS: ADM IN [facility] [address] [place] [address] END OF REPORT
--- NOTE | 2019-12-01 15:39 | MORECARE ---
CASE MANAGEMENT DISCHARGE SUMMARY PATIENT: SOFÍA COREAS UNIT: [id number] ADM DATE: 11/28/19 AGE: 69 : 51 SEX: F ROOM/BED: D.2228 AUTHOR: ASHLEEDOC PHYSICIAN: REFERRING PHYSICIAN: ALEXUS ALANIS MD DATE OF SERVICE: 12/01/19 Discharge Plan Patient Name: SOFÍA COREAS Facility: [facility]:[place] : 1950 Planned Disposition: Anticipated Discharge Date: Discharge Date: Expected LOS: Initial Reviewer: [id number] Initial Review Date: 11/28/2019 Generated: 12/01/19 4:39 pm Comments DCP- Discharge Planning Updated by [id number]: Wilma Davidson on 12/01/19 2:[address] Patient Name: SOFÍA COREAS Admission Status: ER Accout number: [id number] Admission Date: 11-28-2019 : 1950 Admission Diagnosis:PAIN IN LEFT ANKLE AND JOINTS OF LEFT FOOT Attending: ALEXUS ALANIS Current LOS: 3 Anticipated DC Date: Planned Disposition: Primary Insurance: MEDICARE A & B Discharge Planning Comments: CM met with patient at bedside after explaining CM role and obtaining verbal consent. CM discussed availability / needs of home health, REHAB and medical equipment. STATES WILL NEED A WALKER AND HH. RENE SIGNED FOR [facility] FOR DME AND [facility]. PATIENT IS SOMEWHAT CONFUSED AND DROWSY AT THIS TIME. Millwright Helper: Wilma Davidson DCPIA - Discharge Planning Initial Assessment Updated by [email or web address]: Wilma Davidson on 12/01/19 3:04 pm * Is the patient Alert and Oriented? No * PCP ANNABELLE * Pharmacy [facility] * Preadmission Environment Home Alone * ADLs Independent * Other Equipment CANE,NEB, OXYGEN, PORT O2 * Community resources currently utilized None * Additional services required to return to the preadmission environment? No * Can the patient safely return to the preadmission environment? No * Has this patient been hospitalized within the prior 30 days at any hospital? No External Providers External Provider: [facility] Next Contact Date: Service Request Date: Service Type: Resolution: Reviewer: Comments: External Provider: [facility] Next Contact Date: Service Request Date: Service Type: Resolution: Reviewer: Comments: Coverage Notice Reviewer: [id number] Dalila Davidson Notice Issued Date-Time: 12/01/2019 15:37 Notice Type: Patient Choice Letter Notice Delivered To: Patient Relationship to Patient: Services Delivery Driver Name: Delivery Method: HAND - Hand Delivered Michelle Days: Prior Verbal Notification: Recipient Understood Notice: Yes Recipient Signature: Yes Med Rec Note Co-signed by Attending: Coverage Notice Comment: [facility] IF NEEDED, AND TERRY FROM [facility] FOR DME Reviewer: [id number] - Wilma Davidson Notice Issued Date-Time: 12/01/2019 15:37 Notice Type: IM Discharge Notice Notice Delivered To: Patient Relationship to Patient: Services Delivery Driver Name: Delivery Method: HAND - Hand Delivered Michelle Days: Prior Verbal Notification: Recipient Understood Notice: Yes Recipient Signature: Yes Med Rec Note Co-signed by Attending: Coverage Notice Comment: Last DP export: 12/01/19 2:10 pm Patient Name: SOFÍA COREAS Page 40631 at 1539 All edits/amendments must be made on the electronic document DICTATION DATE: 12/01/19 1539 TACTICAL RESPONSE GROUP OFFICER: SEAN 12/01/19 1539 RPT#: [id number] DC DATE: STATUS: ADM IN [facility] [address] [place] [address] END OF REPORT
[2019-12-01 16:00] VITALS: BP 116/57
--- NOTE | 2019-12-01 16:06 | NUR ---
WENT OT SEE PT AND ASSIT WITH FULL LINEN CHANGE. PT HAD LARGE BOWEL AND THEN WAS TRYING TO CLIMB OUT OF BED AGAIN, WHEN ASKED IF SHE KNEW WHERE SHE WAS SHE STATED YES, WHEN ASKED IF HURTING SHE STATED YES AND WHEN ASKED IFSHE CAN TELL ME WHERE SHE IS HURTING SHE GIGGLED, SO PT IS AGAIN CONFUSED, CALLED AND RELAYED FINDINGS TO DR ALANIS. PER DR ALANIS CT HEAD W/O CONTRAST WILL CALL FAMILY WELL CONTINUE WITH PLAN OF CARE
[2019-12-01 18:08] LABS: SPE - ALBUMIN 2.7 g/dL (2.9-4.4); SPE - ALPHA-1 GLOBULIN 0.3 g/dL (0.0-0.4); SPE - GAMMA GLOBULIN 0.5 g/dL (0.4-1.8); SPE - M-SPIKE Not Observed g/dL (Not Observed); SPE - TOTAL PROTEIN 5.5 g/dL (6.0-8.5)
--- NOTE | 2019-12-01 19:30 | NUR ---
PT LYING IN BED WITHOUT DISTRESS, AWAKENS TO VERBAL STIMULI. IV RIGHT HAND INFUSING NS @ KVO. THEO ALARM ON. O2 6L/HFNC. LEFT ANKLE WRAPPED IN BHAVYA BANDAGE, CDI. PROPPED ON PILLOW WITH ICE PACK. PT ANSWERS YES OR NO QUESTIONS AND FOLLOWS COMMANDS. ANSWERS YES TO QUESTIONS ABOUT IF SHE KNOWS WHERE SHE IS AND WHAT IS HAPPENING, STATES NO WHEN ASKED IF SHE HAS ANY NEEDS. WHEN ASKED WHERE SHE IS OR WHAT HAPPENED, PT DOES NOT GIVE ANSWER.
[2019-12-01 20:00] VITALS: BP 123/55
--- NOTE | 2019-12-01 21:30 | NUR ---
FSBS 88. PT REFUSES EAT OR DRINK ANYTHING. WILL MONITOR. PT INCONTINENT OF URINE. FULL LINEN CHANGE. [facility] PROVIDED. PT UNABLE TO STATE WHO SHE IS, WHERE SHE IS, WHAT TIME, AND WHY SHE IS HERE. PT WILL ANSWER SIMPLE YES OR NO QUESTIONS. SPOKE WITH PT FRIEND HERMELINDO AND UPDATED ON PT. WILL CTM
[2019-12-02 04:00] VITALS: BP 127/62
--- NOTE | 2019-12-02 04:17 | NUR ---
BED ALARM SOUNDING. PT FOUND TO BE TRYING TO CLIMB OUT OF BED. LINENS SOAKED. ASSISTED PT BACK INTO BED AND CHANGE LINENS, PROVIDED [facility] CARE. PT AGITATED AND YELLING QUIT THE ENTIRE TIME. PT PULLED IV OUT AND CONTINUED TO PULL AT OXYGEN TUBING AND GRABBING AND PULLING EVERYTHING AROUND HER. WILL NOT KEEP FOOT PROPPED ON PILLOW, KICKING IT OFF BED. PT ABLE TO TELL ME FIRST AND LAST NAME. HAS BEEN UNABLE UNTIL NOW. WHEN ASKED HER BIRTHDAY SHE DOES NOT TELL ME CORRECT DATE BUT DID GIVE A DATE. ASKED PT SEVERAL TIMES IF SHE KNEW WHERE SHE WAS AND SHE JUST YELLED QUIT UNTIL FINALLY YELLING " OF COURSE I KNOW WHERE I AM" BUT WHEN I ASKED HERE WHERE THAT IS SHE WAS QUIET FOR A FEW SECOND THEN YELLED QUIT AGAIN. AFTER GETTING PT COMFORTABLE IN BED, LET PT SETTLE DOWN FOR A WHILE. WENT BACK TO PT ROOM TO ATTEMPT NEW IV SITE. PT JERKED HER HANDS BACK THE FIRST TIME I PLACED IV AND PULLED IT RIGHT BACK OUT. SECOND ATTEMPT WAS SUCCESFUL BUT PT PULLED IT OUT WITHIN MINUTES OF PLACING. WILL LET PT CALM MORE BEFORE ATTMEPTING AGAIN. NOT FLUIDS ORDERED AND NO ABX TO GIVE THIS SHIFT.
--- NOTE | 2019-12-02 06:14 | NUR ---
FSBS 91. PT MORE ALERT THIS MORNING. ABLE TO SAY NAME AND . WHEN ASKED WHERE SHE IS SHE STATES HOSPITAL BUT WAS UNABLE TO GIVE NAME OF HOSPITAL. FOLLOWING ALL COMMANDS. STATES SHE IS DOING GOOD, DENIED ANY NEEDS.
[2019-12-02 06:18] LABS: BASOPHILS 0.3 % (0-2); EOSINOPHILS 4.6 % (0-7); HEMATOCRIT 34.3 % (36.0-48.0); IMMATURE GRANULOCYTES 0.4 % (0-5); LYMPHOCYTES 13.8 % (15-50); MCH 29.8 pg (26.0-34.0); MCHC 29.2 g/dL (31.0-37.0); MCV 102.1 fL (80.0-100.0); MEAN PLATELET VOLUME 9.7 fL (7.4-10.4); MONOCYTES 13.4 % (2-11); NEUTROPHILS 67.5 % (40-80); PLATELET COUNT 252 10x3/uL (130-400); RBC 3.36 10x6/uL (4.00-5.40); WBC 9.8 10x3/uL (4.8-10.8)
[2019-12-02 06:22] LABS: ANION GAP 13.3 mmol/L (8-16); CALCIUM 9.8 mg/dL (8.5-10.1); CREATININE - SERUM 1.1 mg/dL (0.6-1.3); POTASSIUM - SERUM 5.3 mmol/L (3.5-5.1)
[2019-12-02 06:31] LABS: PHOSPHOROUS 2.9 mg/dL (2.5-4.9)
[2019-12-02 08:00] VITALS: BP 104/79
--- NOTE | 2019-12-02 09:02 | MORECARE ---
CASE MANAGEMENT DISCHARGE SUMMARY PATIENT: SOFÍA COREAS UNIT: [id number] ADM DATE: 11/28/19 AGE: 69 : 51 SEX: F ROOM/BED: D.2228 AUTHOR: SHAY ROSADO PHYSICIAN: REFERRING PHYSICIAN: ALEXUS ALANIS MD DATE OF SERVICE: 12/02/19 Discharge Plan Patient Name: SOFÍA COREAS Facility: [facility]:[place] : 1950 Planned Disposition: Anticipated Discharge Date: Discharge Date: Expected LOS: Initial Reviewer: [id number] Initial Review Date: 11/28/2019 Generated: 12/02/19 10:02 am Comments DCP- Discharge Planning Updated by [email or web address]: Wilma Davidson on 12/01/19 2:[address] Patient Name: SOFÍA COREAS Admission Status: ER Accout number: [id number] Admission Date: 11-28-2019 : 1950 Admission Diagnosis:PAIN IN LEFT ANKLE AND JOINTS OF LEFT FOOT Attending: ALEXUS ALANIS Current LOS: 3 Anticipated DC Date: Planned Disposition: Primary Insurance: MEDICARE A & B Discharge Planning Comments: CM met with patient at bedside after explaining CM role and obtaining verbal consent. CM discussed availability / needs of home health, REHAB and medical equipment. STATES WILL NEED A WALKER AND HH. RENE SIGNED FOR [facility] FOR DME AND [facility]. PATIENT IS SOMEWHAT CONFUSED AND DROWSY AT THIS TIME. Body And Fender Mechanic: Wilma Davidson DCPIA - Discharge Planning Initial Assessment Updated by [email or web address]: Wilma Davidson on 12/01/19 3:04 pm * Is the patient Alert and Oriented? No * PCP ANNABELLE * [facility] * Preadmission Environment Home Alone * ADLs Independent * Other Equipment CANE,NEB, OXYGEN, PORT O2 * Community resources currently utilized None * Additional services required to return to the preadmission environment? No * Can the patient safely return to the preadmission environment? No * Has this patient been hospitalized within the prior 30 days at any hospital? No Coverage Notice Reviewer: [id number] - Wilma Davidson Notice Issued Date-Time: 12/01/2019 15:37 Notice Type: Patient Choice Letter Notice Delivered To: Patient Relationship to Patient: Editor School Photograph Name: Delivery Method: HAND - Hand Delivered Michelle Days: Prior Verbal Notification: Recipient Understood Notice: Yes Recipient Signature: Yes Med Rec Note Co-signed by Attending: Coverage Notice Comment: [facility], [facility] IF NEEDED, AND TERRY FROM [facility] FOR DME Reviewer: [id number] Dalila Davidson Notice Issued Date-Time: 12/01/2019 15:37 Notice Type: IM Discharge Notice Notice Delivered To: Patient Relationship to Patient: Editor School Photograph Name: Delivery Method: HAND - Hand Delivered Michelle Days: Prior Verbal Notification: Recipient Understood Notice: Yes Recipient Signature: Yes Med Rec Note Co-signed by Attending: Coverage Notice Comment: Last DP export: 12/01/19 2:39 pm Patient Name: SOFÍA COREAS Page [id number] at 0902 All edits/amendments must be made on the electronic document DICTATION DATE: 12/02/19901 SUPERVISOR HOUSECLEANER: SEAN 12/02/19901 RPT#: [id number] DC DATE: STATUS: ADM IN [facility] [address] [place] [address] END OF REPORT
--- NOTE | 2019-12-02 09:10 | MORECARE ---
CASE MANAGEMENT DISCHARGE SUMMARY PATIENT: SOFÍA COREAS UNIT: [id number] ADM DATE: 11/28/19 AGE: 69 : 51 SEX: F ROOM/BED: D.2228 AUTHOR: SHAY ROSADO PHYSICIAN: REFERRING PHYSICIAN: ALEXUS ALANIS MD DATE OF SERVICE: 12/02/19 Discharge Plan Patient Name: SOFÍA COREAS Facility: [facility]:[place] : 1950 Planned Disposition: Anticipated Discharge Date: Discharge Date: Expected LOS: Initial Reviewer: [email or web address] Initial Review Date: 11/28/2019 Generated: 12/02/19 10:09 am Comments DCP- Discharge Planning Updated by [email or web address]: Wilma Davidson on 12/02/19 8:[address] Patient Name: SOFÍA COREAS Admission Status: ER Accout number: [id number] Admission Date: 11-28-2019 : 1950 Admission Diagnosis:PAIN IN LEFT ANKLE AND JOINTS OF LEFT FOOT Attending: ALEXUS ALANIS Current LOS: 4 Anticipated DC Date: Planned Disposition: Primary Insurance: MEDICARE A & B Discharge Planning Comments: PATIENT STILL CONFUSED TODAY, MAY BENEFIT FROM [facility]. RENE SIGNED. Personnel Records Clerk: Wilma Davidson DCP- Discharge Planning Updated by [email or web address]: Wilma Davidson on 12/01/19 2:[address] Patient Name: SOFÍA COREAS Admission Status: ER Accout number: [id number] Admission Date: 11-28-2019 : 1950 Admission Diagnosis:PAIN IN LEFT ANKLE AND JOINTS OF LEFT FOOT Attending: ALEXUS ALANIS Current LOS: 3 Anticipated DC Date: Planned Disposition: Primary Insurance: MEDICARE A & B Discharge Planning Comments: CM met with patient at bedside after explaining CM role and obtaining verbal consent. CM discussed availability / needs of home health, REHAB and medical equipment. STATES WILL NEED A WALKER AND HH. RENE SIGNED FOR [facility] FOR DME AND [facility]. PATIENT IS SOMEWHAT CONFUSED AND DROWSY AT THIS TIME. Personnel Records Clerk: Wilma Davidson DCPIA - Discharge Planning Initial Assessment Updated by [email or web address]: Wilma Davidson on 12/01/19 3:04 pm * Is the patient Alert and Oriented? No * PCP ANNABELLE * [facility] * Preadmission Environment Home Alone * ADLs Independent * Other Equipment CANE,NEB, OXYGEN, PORT O2 * Community resources currently utilized None * Additional services required to return to the preadmission environment? No * Can the patient safely return to the preadmission environment? No * Has this patient been hospitalized within the prior 30 days at any hospital? No Coverage Notice Reviewer: [id number] Dalila Davidson Notice Issued Date-Time: 12/01/2019 15:37 Notice Type: Patient Choice Letter Notice Delivered To: Patient Relationship to Patient: Urban Redevelopment Specialist Name: Delivery Method: HAND - Hand Delivered Michelle Days: Prior Verbal Notification: Recipient Understood Notice: Yes Recipient Signature: Yes Med Rec Note Co-signed by Attending: Coverage Notice Comment: [facility], [facility] IF NEEDED, AND WALKER FROM [facility] FOR DME Reviewer: [id number] Dalila Davidson Notice Issued Date-Time: 12/01/2019 15:37 Notice Type: IM Discharge Notice Notice Delivered To: Patient Relationship to Patient: Urban Redevelopment Specialist Name: Delivery Method: HAND - Hand Delivered Michelle Days: Prior Verbal Notification: Recipient Understood Notice: Yes Recipient Signature: Yes Med Rec Note Co-signed by Attending: Coverage Notice Comment: Last DP export: 12/02/19 8:02 am Patient Name: SOFÍA COREAS Page [id number] at 0910 All edits/amendments must be made on the electronic document DICTATION DATE: 12/02/19909 SOFTWARE ENGINEER INTERN: SEAN 12/02/19909 RPT#: [id number] DC DATE: STATUS: ADM IN [address] [place] [address] END OF REPORT
[2019-12-02 12:00] VITALS: BP 122/83
--- NOTE | 2019-12-02 13:08 | NUR ---
ASSISTED PT WITH LUNCH, ABLE TO OBTAIN IV IN LEFT FA, PT IS STILL CONFUSED ABLE TO ANSWER MOST QUESTIONS CONTINUE WITH PLAN OF CARE AND FALL PRECAUTIONS
[2019-12-02 16:00] VITALS: BP 125/75
--- NOTE | 2019-12-02 18:39 | NUR ---
I have reviewed this patient and I concur with the Shift Assessment completed by the Licensed Practical Nurse today this shift.
[2019-12-02 20:00] VITALS: BP 132/76
--- NOTE | 2019-12-02 20:00 | NUR ---
PATIENT ON PERSONAL PHONE. NO S/S OF ACUTE DISTRESS. NO C/O AT THIS TIME. PATIENT IS A&O X2, SELF AND PLACE. PATIENT IS ON 6L OF 02, HIGH FLOW NASAL CANNULA. PATIENT HAS IV IN LEFT FOREARM NORMAL SALINE @ KVO. IV IS PATENT WITHOUT REDNESS, SWELLING, OR TENDERNESS. PATIENT IS POST-OP DAY 2 OF RIGHT ANKLE. ANKLE IS SPLINTED AND WRAPPED, DRESSING C/D/I. PATIENT IS INCONTINENT OF BOWEL AND BLADDER. CALL LIGHT WITHIN REACH. WILL CONTINUE TO MONITOR.
[2019-12-03] VITALS: BP 127/73
--- NOTE | 2019-12-03 00:13 | NUR ---
I have reviewed this patient and I concur with the Shift Assessment completed by the Licensed Practical Nurse today this shift.
[2019-12-03 04:00] VITALS: BP 145/97
--- NOTE | 2019-12-03 06:55 | NUR ---
ALERT AND ORIENTED, RESTING IN BED WITH EYES OPEN. NO C/O PAIN. NO S/S OF ACUTE DISTRESS NOTED. ON BEDREST. POD #3 LEFT ANKLE, SOFT CAST WRAPPED WITH BHAVYA BANDAGE. ON 6L O2, HIGH FLOW. IV TO LEFT WRIST, NS INFUSING @ 20ML/HR. SITE PATENT WITHOUT REDNESS OR SWELLING. DENIES ANY NEEDS AT THIS TIME. CALL LIGHT IN REACH. WILL CONTINUE TO MONITOR.
[2019-12-03 06:58] LABS: ANION GAP 13.8 mmol/L (8-16); CALCIUM 9.7 mg/dL (8.5-10.1); CARBON DIOXIDE 25.5 mmol/L (21.0-32.0); CREATININE - SERUM 0.9 mg/dL (0.6-1.3)
[2019-12-03 07:00] LABS: POTASSIUM - SERUM 4.3 mmol/L (3.5-5.1)
[2019-12-03 08:00] VITALS: BP 121/63
--- NOTE | 2019-12-03 09:21 | NUR ---
REHAB PRESCREENING Rehab referral received and chart reviewed. Physical Therapy notes state the patient is so confused that she is unsafe to ambulate at this time. Rehab will continue to follow this patient for improved cognition and ability to follow commands. Thank you for this referral! Luzmaria Flores, HANDWRITING EXPERT Rehab PD
--- NOTE | 2019-12-03 11:51 | NUR ---
I have reviewed this patient and I concur with the Shift Assessment completed by the Licensed Practical Nurse today this shift.
[2019-12-03 12:00] VITALS: BP 116/61
--- NOTE | 2019-12-03 13:40 | NUR ---
Nutrition follow-up: Diet: Renal ADA PO intake poor 2/2 confusion; nurse reports pt has been very confused and refusing some meals Labs reviewed Wt: 221# Pt would benefit from nutrition support 2/2 not eating; however, pt has been pulling out all IV's that have been placed. Will continue to monitor patients progress and provide food choices. RDN will order Glucerna Shake with dinner meal. RDN following.
--- NOTE | 2019-12-03 13:46 | MORECARE ---
CASE MANAGEMENT DISCHARGE SUMMARY PATIENT: SOFÍA COREAS UNIT: [id number] ADM DATE: 11/28/19 AGE: 69 : 51 SEX: F ROOM/BED: D.2228 AUTHOR: ASHLEEDOC PHYSICIAN: REFERRING PHYSICIAN: ALEXUS ALANIS MD DATE OF SERVICE: 12/03/19 Discharge Plan Patient Name: SOFÍA COREAS Facility: [facility]:[place] : 1950 Planned Disposition: Anticipated Discharge Date: Discharge Date: Expected LOS: Initial Reviewer: [email or web address] Initial Review Date: 11/28/2019 Generated: 12/03/19 2:46 pm Comments DCP- Discharge Planning Updated by [email or web address]: Wilma Davidson on 12/03/19 12:[address] Patient Name: SOFÍA COREAS Admission Status: ER Accout number: [id number] Admission Date: 11-28-2019 : 1950 Admission Diagnosis:PAIN IN LEFT ANKLE AND JOINTS OF LEFT FOOT Attending: ALEXUS ALANIS Current LOS: 5 Anticipated DC Date: Planned Disposition: Primary Insurance: MEDICARE A & B Discharge Planning Comments: [facility] CONS[facility] FOR TODAY. CM TO FOLLOW AND ASSIST. Director Gift: Wilma Davidson DCP- Discharge Planning Updated by [email or web address]: Wilma Davidson on 12/02/19 8:[address] Patient Name: SOFÍA COREAS Admission Status: ER Accout number: [id number] Admission Date: 11-28-2019 : 1950 Admission Diagnosis:PAIN IN LEFT ANKLE AND JOINTS OF LEFT FOOT Attending: ALEXUS ALANIS Current LOS: 4 Anticipated DC Date: Planned Disposition: Primary Insurance: MEDICARE A & B Discharge Planning Comments: PATIENT STILL CONFUSED TODAY, MAY BENEFIT FROM [facility]. RENE SIGNED. Director Gift: Wilma Davidson DCP- Discharge Planning Updated by [email or web address]: Wilma Davidson on 12/01/19 2:[address] Patient Name: SOFÍA COREAS Admission Status: ER Accout number: [id number] Admission Date: 11-28-2019 : 1950 Admission Diagnosis:PAIN IN LEFT ANKLE AND JOINTS OF LEFT FOOT Attending: ALEXUS ALANIS Current LOS: 3 Anticipated DC Date: Planned Disposition: Primary Insurance: MEDICARE A & B Discharge Planning Comments: CM met with patient at bedside after explaining CM role and obtaining verbal consent. CM discussed availability / needs of home health, REHAB and medical equipment. STATES WILL NEED A WALKER AND HH. RENE SIGNED FOR [facility] FOR DME AND [facility]. PATIENT IS SOMEWHAT CONFUSED AND DROWSY AT THIS TIME. Director Gift: Wilma Davidson DCPIA - Discharge Planning Initial Assessment Updated by [id number]: Wilma Davidson on 12/01/19 3:04 pm * Is the patient Alert and Oriented? No * PCP ANNABELLE * Pharmacy [facility] * Preadmission Environment Home Alone * ADLs Independent * Other Equipment CANE,NEB, OXYGEN, PORT O2 * Community resources currently utilized None * Additional services required to return to the preadmission environment? No * Can the patient safely return to the preadmission environment? No * Has this patient been hospitalized within the prior 30 days at any hospital? No Coverage Notice Reviewer: [id number] Davidson Notice Issued Date-Time: 12/01/2019 15:37 Notice Type: Patient Choice Letter Notice Delivered To: Patient Relationship to Patient: Route Deliverer Name: Delivery Method: HAND - Hand Delivered Michelle Days: Prior Verbal Notification: Recipient Understood Notice: Yes Recipient Signature: Yes Med Rec Note Co-signed by Attending: Coverage Notice Comment: [facility], [facility] IF NEEDED, AND WALKER FROM [facility] FOR DME Reviewer: [id number] Davidson Notice Issued Date-Time: 12/01/2019 15:37 Notice Type: IM Discharge Notice Notice Delivered To: Patient Relationship to Patient: Route Deliverer Name: Delivery Method: HAND - Hand Delivered Michelle Days: Prior Verbal Notification: Recipient Understood Notice: Yes Recipient Signature: Yes Med Rec Note Co-signed by Attending: Coverage Notice Comment: Last DP export: 12/02/19 8:10 am Patient Name: SOFÍA COREAS Page [id number] at 1346 All edits/amendments must be made on the electronic document DICTATION DATE: 12/03/19 1346 CASE HARDENER: SEAN 12/03/19 1346 RPT#: [id number] DC DATE: STATUS: ADM IN [facility] [address] [place] [address] END OF REPORT
[2019-12-03 16:00] VITALS: BP 103/49
--- NOTE | 2019-12-03 17:57 | NUR ---
CALLED REPORT TO ALVINA IN REHAB. DICHARGED PATIENT TO REHAB [facility], VIA WHEELCHAIR ACCOMPANIED BY STAFF. DISCONTINUED IV, CATHETER TIP INTACT. WENT OVER DISCHARGE INSTRUCTIONS WITH PATIENT, VERBALIZED UNDERSTANDING. DENIES ANYTHING FURTHER AT THIS TIME.
--- NOTE | 2019-12-06 08:34 | MORECARE ---
CASE MANAGEMENT DISCHARGE SUMMARY PATIENT: SOFÍA COREAS UNIT: [id number] ADM DATE: 11/28/19 AGE: 69 : 51 SEX: F ROOM/BED: D.2228 AUTHOR: SHAY ROSADO PHYSICIAN: REFERRING PHYSICIAN: ALEXUS ALANIS MD DATE OF SERVICE: 12/06/19 Discharge Plan Patient Name: SOFÍA COREAS Facility: [facility]:[place] : 1950 Planned Disposition: Anticipated Discharge Date: Discharge Date: 12/03/2019 Expected LOS: Initial Reviewer: [email or web address] Initial Review Date: 11/28/2019 Generated: 12/06/19 9:33 am Comments DCP- Discharge Planning Updated by [id number]: Wilma Davidson on 12/03/19 12:[address] Patient Name: SOFÍA COREAS Admission Status: ER Accout number: [id number] Admission Date: 11-28-2019 : 1950 Admission Diagnosis:PAIN IN LEFT ANKLE AND JOINTS OF LEFT FOOT Attending: ALEXUS ALANIS Current LOS: 5 Anticipated DC Date: Planned Disposition: Primary Insurance: MEDICARE A & B Discharge Planning Comments: PLAN IS FOR PATIENT TO BE [facility] CONSULT FOR TODAY. CM TO FOLLOW AND ASSIST. Supervisor [facility]: Wilma Davisdon DCP- Discharge Planning Updated by [id number]: Wilma Davidson on 12/02/19 8:[address] Patient Name: SOFÍA COREAS Admission Status: ER Accout number: [id number] Admission Date: 11-28-2019 : 1950 Admission Diagnosis:PAIN IN LEFT ANKLE AND JOINTS OF LEFT FOOT Attending: ALEXUS ALANIS Current LOS: 4 Anticipated DC Date: Planned Disposition: Primary Insurance: MEDICARE A & B Discharge Planning Comments: PATIENT STILL CONFUSED TODAY, MAY BENEFIT FROM [facility]. RENE SIGNED. Supervisor [facility]: Wilma Davidson DCP- Discharge Planning Updated by [id number]: Wilma Davidson on 12/01/19 2:[address] Patient Name: SOFÍA COREAS Admission Status: ER Accout number: [id number] Admission Date: 11-28-2019 : 1950 Admission Diagnosis:PAIN IN LEFT ANKLE AND JOINTS OF LEFT FOOT Attending: ALEXUS ALANIS Current LOS: 3 Anticipated DC Date: Planned Disposition: Primary Insurance: MEDICARE A & B Discharge Planning Comments: CM met with patient at bedside after explaining CM role and obtaining verbal consent. CM discussed availability / needs of home health, REHAB and medical equipment. STATES WILL NEED A WALKER AND HH. RENE SIGNED FOR [facility] FOR DME AND [facility]. PATIENT IS SOMEWHAT CONFUSED AND DROWSY AT THIS TIME. Supervisor [facility]: Wilma Davidson DCPIA - Discharge Planning Initial Assessment Updated by [id number]: Wilma Davidson on 12/01/19 3:04 pm * Is the patient Alert and Oriented? No * PCP ANNABELLE * Pharmacy [facility] * Preadmission Environment Home Alone * ADLs Independent * Other Equipment CANE,NEB, OXYGEN, PORT O2 * Community resources currently utilized None * Additional services required to return to the preadmission environment? No * Can the patient safely return to the preadmission environment? No * Has this patient been hospitalized within the prior 30 days at any hospital? No Coverage Notice Reviewer: [id number] Dalila Davidson Notice Issued Date-Time: 12/01/2019 15:37 Notice Type: Patient Choice Letter Notice Delivered To: Patient Relationship to Patient: [employer] Ambassador Name: Delivery Method: HAND - Hand Delivered Michelle Days: Prior Verbal Notification: Recipient Understood Notice: Yes Recipient Signature: Yes Med Rec Note Co-signed by Attending: Coverage Notice Comment: [facility], [facility] IF NEEDED, AND WALKER FROM [facility] FOR DME Reviewer: [email or web address] Dalila Davidson Notice Issued Date-Time: 12/01/2019 15:37 Notice Type: IM Discharge Notice Notice Delivered To: Patient Relationship to Patient: [employer] Ambassador Name: Delivery Method: HAND - Hand Delivered Michelle Days: Prior Verbal Notification: Recipient Understood Notice: Yes Recipient Signature: Yes Med Rec Note Co-signed by Attending: Coverage Notice Comment: Last DP export: 12/03/19 12:46 pm Patient Name: SOFÍA COREAS Page [id number] at 0834 All edits/amendments must be made on the electronic document DICTATION DATE: 12/06/19832 THERMOMETER TESTER: SEAN 12/06/19832 RPT#: [id number] DC DATE:12/03/19 STATUS: DIS IN [id number] [place] [address] END OF REPORT
== END 2019-12-03 18:22 | DRG 492 ==
LOC: D.ER 09:36 → D.MS 11:20
PROVIDERS: Family Medicine; Internal Medicine Nephrology; Orthopaedic Surgery; ADMIT Family Medicine; ATTEND Family Medicine
PROC: 0QSH04Z Reposition Left Tibia with Internal Fixation Device, Open Approach (ICD-10-PCS; 2019-11-30)
PROC: 0QSK04Z Reposition Left Fibula with Internal Fixation Device, Open Approach (ICD-10-PCS; principal; 2019-11-30 14:00)
DX: S82.842A Displaced bimalleolar fracture of left lower leg, initial encounter for closed fracture (principal); N17.0 Acute kidney failure with tubular necrosis; G92 Toxic encephalopathy; B37.49 Other urogenital candidiasis; W19.XXXA Unspecified fall, initial encounter; E11.9 Type 2 diabetes mellitus without complications; I95.9 Hypotension, unspecified; E78.5 Hyperlipidemia, unspecified; J44.9 Chronic obstructive pulmonary disease, unspecified; D64.9 Anemia, unspecified

== ENCOUNTER 2019-12-03 16:38 | Inpatient (IN) | payer MEDICARE, OTHER ==
[~2019-12-03] VITALS: Ht 160 cm; Wt 99.8 kg
[~2019-12-03 16:38] MED LIST changes: +BREO ELLIPTA 21 EACH; +LYRICA75 MG PO
--- NOTE | 2019-12-03 18:50 | NUR ---
BEDSIDE REPORT COMPLETE. PT LYING IN BED. HOB ELEVATED. ALERT AND ORIENTED X4. DENIES ANY NEEDS OR PAIN. LEFT ANKLE ELEVATED ON PILLOWS. SOFT CAST C/D/I. CONTINUES ON 2L VIA NC. CALL LIGHT WITHIN REACH. FALL PRECAUTIONS IN PLACE. CPOC
[2019-12-03 22:40] VITALS: BP 137/66; BMI 39.0
--- NOTE | 2019-12-04 00:43 | NUR ---
PT LYING IN BED EYES CLOSED RESTING COMFORTABLY. RR EVEN AND UNLABORED. CONTINUES ON 2L VIA NC. CALL LIGHT WITHIN REACH. FALL PRECAUTIONS IN PLACE. WILL CONTINUE TO MONITOR
--- NOTE | 2019-12-04 05:03 | NUR ---
PT LYING IN BED EYES CLOSED RESTING QUIETLY. HOB ELEVATED. CONTINUES ON 2L VIA NC. CALL LIGHT WITHIN REACH. FALL PRECAUTIONS IN PLACE. CPOC
[2019-12-04 06:18] LABS: ANION GAP 9.5 mmol/L (8-16); CALCIUM 9.2 mg/dL (8.5-10.1); CARBON DIOXIDE 30.8 mmol/L (21.0-32.0); POTASSIUM - SERUM 4.3 mmol/L (3.5-5.1)
[2019-12-04 06:20] LABS: HEMATOCRIT 35.4 % (36.0-48.0); HEMOGLOBIN 10.8 g/dL (12-16); LYMPHOCYTES 33.5 % (15-50); MCH 29.8 pg (26.0-34.0); MCHC 30.5 g/dL (31.0-37.0); MCV 97.5 fL (80.0-100.0); MEAN PLATELET VOLUME 9.3 fL (7.4-10.4); NEUTROPHILS 54.1 % (40-80); PLATELET COUNT 217 10x3/uL (130-400); RBC 3.63 10x6/uL (4.00-5.40); RDW 14.5 % (11.5-14.5); WBC 8.1 10x3/uL (4.8-10.8)
[2019-12-04 08:00] VITALS: BP 112/59
--- NOTE | 2019-12-04 08:00 | NUR ---
PATIENT IS ALERT/ORIENT. CALL LIGHT WITHIN REACH. VOICES NO NEEDS AT THIS TIME. WILL CONTINUE WITH PLAN OF CARE
[2019-12-04 09:02] VITALS: Ht 160 cm; Wt 99.8 kg
--- NOTE | 2019-12-04 14:31 | NUR ---
PATIENT IN REHAB ROOM. WORKING WITH PHYSICAL THERAPIST. DENIES ANY PAIN/DISC AT THIS TIME.
[2019-12-04 19:20] VITALS: BP 115/55
--- NOTE | 2019-12-04 19:20 | NUR ---
BEDSIDE REPORT COMPLETE. PT LYING IN BED AWAKE. HOB ELEVATED. ALERT AND ORIENTED X4. DENIES ANY NEEDS OR PAIN. NO SIGNS OF ACUTE DISTRESS NOTED. LEFT ANKLE CAST C/D/I. CONTINUES ON 2L VIA NC. VS STABLE. SHIFT ASSESSMENT COMPLETE. CALL LIGHT WITHIN REACH. FALL PRECAUTIONS IN PLACE. CPOC
--- NOTE | 2019-12-04 23:43 | NUR ---
PT LYING IN BED SUPINE EYES CLOSED RESTING QUIETLY. RR EVEN AND UNLABORED. CONTINUES ON 2L VIA NC. CALL LIGHT WITHIN REACH. FALL PRECAUTIONS IN PLACE. WILL CONTINUE TO MONITOR
--- NOTE | 2019-12-05 02:08 | NUR ---
PT LYING IN BED ON RIGHT SIDE EYES CLOSED RESTING QUIETLY. RR EVEN AND UNLABORED. CALL LIGHT WITHIN REACH. FALL PRECAUTIONS IN PLACE. CPOC
--- NOTE | 2019-12-05 04:05 | NUR ---
ASSISTED PT TO BSC WITH MOD ASSIST. CALL LIGHT WITHIN REACH
--- NOTE | 2019-12-05 04:20 | NUR ---
ASSISTED PT BACK TO BED WITH MOD ASSIST. 300ML YELLOW URINE EMPTIED FROM BSC. CALL LIGHT WITHIN REACH. FALL PRECAUTIONS IN PLACE. CPOC
--- NOTE | 2019-12-05 05:41 | NUR ---
PT LYING IN EYES CLOSED RESTING QUIETLY. RR EVEN AND UNLABORED. CALL LIGHT AND WATER WITHIN REACH. FALL PRECAUTIONS IN PLACE. CPOC
--- NOTE | 2019-12-05 07:39 | NUR ---
PATIENT IS ALERT/ORIENT. CALL LIGHT WITHIN REACH. VOICES NO NEEDS AT THIS TIME. WILL CONTINUE WITH PLAN OF CARE
[2019-12-05 08:00] VITALS: BP 123/60
--- NOTE | 2019-12-05 13:35 | NUR ---
PATIENT HELPED UP TO BEDSIDE COMMODE. STAND BY ASST AFTER LIFTING LEGS OUT OF BED
--- NOTE | 2019-12-05 18:50 | NUR ---
BEDSIDE REPORT COMPLETE. PT SITTING UP IN BED. HOB ELEVATED. ALERT AND ORIENTED X4. DENIES ANY NEEDS OR PAIN. LEFT ANKLE CAST C/D/I AND ELEVATED ON PILLOWS. CONTINUES ON 2L VIA NC. CALL LIGHT AND WATER WITHIN REACH. FALL PRECAUTIONS IN PLACE. CPOC
[2019-12-05 19:36] VITALS: BP 136/68
--- NOTE | 2019-12-05 23:00 | NUR ---
ASSISTED PT TO BSC WITH MOD ASSIST. DENIES ANY OTHER NEEDS OR PAIN. CALL LIGHT WITHIN REACH. CPOC
--- NOTE | 2019-12-06 03:58 | NUR ---
PT LYING IN BED EYES CLOSED RESTING COMFORTABLY. HOB ELEVATED. CONTINUES ON 2L VIA NC. RR EVEN AND UNLABORED. CALL LIGHT WITHIN REACH. FALL PRECAUTIONS IN PLACE. CPOC
--- NOTE | 2019-12-06 06:20 | NUR ---
ASSISTED PT TO BSC WITH MIN ASSIST. DENIES ANY OTHER NEEDS OR PAIN. CALL LIGHT WITHIN REACH.
[2019-12-06 06:22] LABS: ANION GAP 8.8 mmol/L (8-16); CALCIUM 10.1 mg/dL (8.5-10.1); CARBON DIOXIDE 30.4 mmol/L (21.0-32.0); CREATININE - SERUM 1.1 mg/dL (0.6-1.3); POTASSIUM - SERUM 4.2 mmol/L (3.5-5.1)
[2019-12-06 07:17] LABS: HEMATOCRIT 36.5 % (36.0-48.0); HEMOGLOBIN 11.2 g/dL (12-16); MCH 30.3 pg (26.0-34.0); MCHC 30.7 g/dL (31.0-37.0); MCV 98.6 fL (80.0-100.0); NEUTROPHILS 53.5 % (40-80); PLATELET COUNT 252 10x3/uL (130-400); RDW 14.8 % (11.5-14.5); WBC 8.5 10x3/uL (4.8-10.8)
[2019-12-06 07:30] VITALS: BP 118/59
--- NOTE | 2019-12-06 07:30 | NUR ---
AROUSES EASILY.DENIES NEEDS,PAIN.ASSESSMENT COMPLETED.DRESSING INTACT TO LEFT FOOT/ANKLE CLEAN AND DRY.WILL CONTINUE WITH CURRENT PLAN OF CARE.CL IN EASY REACH,BED IN LOW POSITION.
--- NOTE | 2019-12-06 14:11 | NUR ---
PATIENT ADMITTED TO REHAB FROM ACUTE FLOOR.DR. ALANIS IS HER PCP. DME AT HOME IS A CANE, NEBULIZER AND O2. DISCHARGE PLANS ARE FOR PATIENT TO RETURN HOME. SHE WOULD LIKE [facility] FOR HOME HEALTH. WILL CONTINUE TO FOLLOW WITH PATIENT.
--- NOTE | 2019-12-06 18:55 | NUR ---
BEDSIDE REPORT COMPLETE. PT SITTING UP IN BED WATCHING TV. ALERT AND ORIENTED X4. DENIES ANY NEEDS OR PAIN. RR EVEN AND UNLABORED. CONTINUES ON 2L VIA NC. LEFT ANKLE ELEVATED WALKING BOOT ON. CALL LIGHT WITHIN REACH. FALL PRECAUTIONS IN PLACE. CPOC
[2019-12-06 23:33] VITALS: BP 121/62
--- NOTE | 2019-12-07 01:22 | NUR ---
PT LYING IN BED SUPINE EYES CLOSED RESTING COMFORTABLY. CONTINUES ON 2L VIA NC. RR EVEN AND UNLABORED. CALL LIGHT WITHIN REACH. FALL PRECAUTIONS IN PLACE. WILL CONTINUE TO MONITOR
--- NOTE | 2019-12-07 05:06 | NUR ---
PT LYING IN BED EYES CLOSED RESTING. RR EVEN AND UNLABORED. CALL LIGHT WITHIN REACH
--- NOTE | 2019-12-07 06:48 | NUR ---
PT SITTING UP IN BED READING BIBLE. DENIES ANY NEEDS. CALL LIGHT WITHIN REACH. FALL PRECAUTIONS IN PLACE. CPOC
--- NOTE | 2019-12-07 08:00 | NUR ---
INTRODUCED SELF TO PATIENT AND PUT NAME ON BOARD, PT. AWAKE AND ALERT, DENIES ANY NEEDS AT THIS TIME, V/S AND ASSESMENT COMPLETE, C/L AND FLUIDS IN REACH.
[2019-12-07 08:04] VITALS: BP 97/45
--- NOTE | 2019-12-07 10:38 | NUR ---
I have reviewed this patient and I concur with the Shift Assessment completed by the Licensed Practical Nurse today this shift.
--- NOTE | 2019-12-07 12:00 | NUR ---
PT. AWAKE AND ORIENTED, UP IN CHAIR EATING LUNCH, DENIES ANY NEEDS AT THIS TIME, C/L AND FLUIDS IN REACH.
--- NOTE | 2019-12-07 16:00 | NUR ---
RESTING IN BED WATCHING TV, DENIES ANY NEEDS AT THIS TIME, C/L AND FLUIDS IN REACH.
--- NOTE | 2019-12-07 19:52 | NUR ---
AWAKE AND ALERT. RESTING IN BED WITH RESPIRAITONS UNLABORED. LEFT ANKLE DRESSING DRY AND INTACT. O2/2L ON PER NASAL CANNULA. CALL LIGHT IN REACH.
[2019-12-07 21:18] VITALS: BP 101/57
--- NOTE | 2019-12-08 01:02 | NUR ---
RESTING IN BED WITH RESPIRAITONS UNLABORED. NO DISTRESS NOTED.
--- NOTE | 2019-12-08 04:58 | NUR ---
QUIET HOURS. NO ACUTE CHANGES IN CONDITION THIS SHIFT. RESTING IN BED WITH NO DISTRESS NOTED.
[2019-12-08 07:35] LABS: BASOPHILS 0.2 % (0-2); EOSINOPHILS 4.1 % (0-7); HEMATOCRIT 34.1 % (36.0-48.0); HEMOGLOBIN 9.8 g/dL (12-16); IMMATURE GRANULOCYTES 0.8 % (0-5); LYMPHOCYTES 33.6 % (15-50); MCH 29.2 pg (26.0-34.0); MCHC 28.7 g/dL (31.0-37.0); MCV 101.5 fL (80.0-100.0); MEAN PLATELET VOLUME 10.3 fL (7.4-10.4); MONOCYTES 8.9 % (2-11); NEUTROPHILS 52.4 % (40-80); PLATELET COUNT 254 10x3/uL (130-400); RBC 3.36 10x6/uL (4.00-5.40); RDW 15.8 % (11.5-14.5); WBC 9.3 10x3/uL (4.8-10.8)
[2019-12-08 07:54] LABS: ANION GAP 7.2 mmol/L (8-16); CALCIUM 9.1 mg/dL (8.5-10.1); CREATININE - SERUM 1.1 mg/dL (0.6-1.3); POTASSIUM - SERUM 4.2 mmol/L (3.5-5.1)
[2019-12-08 08:00] VITALS: BP 107/55
--- NOTE | 2019-12-08 08:00 | NUR ---
PATIENT IS ALERT/ORIENT. CALL LIGHT WITHIN REACH. VOICES NO NEEDS AT THIS TIME. WILL CONTINUE WITH PLAN OF CARE
--- NOTE | 2019-12-08 10:47 | NUR ---
PATIENT TURNED MANGLE TENDER LIGHT. HELPED TO BEDSIDE COMMODE. NWB ON LEFT ANKLE. MIN ASST. WILL CONTINUE WITH PLAN OF CARE
--- NOTE | 2019-12-08 12:30 | NUR ---
I have reviewed this patient and I concur with the Shift Assessment completed by the Licensed Practical Nurse today this shift.
--- NOTE | 2019-12-08 16:02 | NUR ---
CARE TEAM MEETING: PATIENT IS PROGRESSING WELL IN THERAPY HER TENATIVE DISCHARGE DATE IS 12/17/19. WILL CONTINUE TO FOLLOW WITH PATIENT.
--- NOTE | 2019-12-08 18:50 | NUR ---
BEDSIDE REPORT COMPLETE. PT LYING IN BED EYES CLOSED RESTING QUIETLY. RR EVEN AND UNLABORED. CONTINUES ON 2L VIA NC. LEFT ANKLE DRESSING C/D/I ELEVATED ON PILLOWS. CALL LIGHT WITHIN REACH. FALL PRECAUTIONS IN PLACE. CPOC
[2019-12-08 19:59] VITALS: BP 143/59
--- NOTE | 2019-12-09 00:41 | NUR ---
PT LYING IN BED EYES CLOSED RESTING QUIETLY. RR EVEN AND UNLABORED. CONTINUES ON 2L VIA NC. CALL LIGHT WITHIN REACH. FALL PRECAUTIONS IN PLACE. WILL CONTINUE TO MONITOR
--- NOTE | 2019-12-09 06:33 | NUR ---
PT LYING IN BED SUPINE. HOB ELEVATED. CONTINUES ON 2L VIA NC. CALL LIGHT WITHIN REACH. FALL PRECAUTIONS IN PLACE. CPOC
[2019-12-09 07:36] VITALS: BP 114/64
--- NOTE | 2019-12-09 07:58 | NUR ---
PT RESTING IN BED WITH EYES OPEN CALL LIGHT IN REACH WILL MONITER
--- NOTE | 2019-12-09 17:54 | NUR ---
PT UP IN WHEELCHAIR AT BEDSIDE CALL LIGHT IN REACH WILL MONITER
--- NOTE | 2019-12-09 18:50 | NUR ---
BEDSIDE REPORT COMPLETE. PT SITTING UP IN W/C. ALERT AND ORIENTED X4. DENIES ANY NEEDS. C/O MILD PAIN IN LEFT ANKLE. REQUESTS PAIN MEDS WITH NIGHT TIME MEDS. CALL LIGHT WITHIN REACH. FALL PRECAUTIONS IN PLACE. CPOC
[2019-12-09 20:27] VITALS: BP 110/43
--- NOTE | 2019-12-09 23:30 | NUR ---
ASSISTED PT TO BSC WITH MIN ASSIST. DENIES ANY OTHER NEEDS OR PAIN. RR EVEN AND UNLABORED. CALL LIGHT WITHIN REACH. FALL PRECAUTIONS IN PLACE. CPOC
[2019-12-10 08:00] VITALS: BP 113/34
--- NOTE | 2019-12-10 08:00 | NUR ---
HAS TEMP OF 100.3 AND SOME CHILLS.WET COUGH SOUNDS HEARD.BREATH SOUNDS HAVE CRACKLES IN BASES.LEFT FOOT ANKLE DRESSING INTACT,REDDNESS AND BRUISING OBSERVED,FEELS HOT TO TOUCH COMPARED TO RIGHT .DRESSING REMOVED,SMALL AMT.OF DARK YELLOWISH DRAINAGE PRESENT ON DRESSING.WILL NOTIFY .ASSESSMENT COMPLETED.DIET SERVED.CONTINUE WITH PLAN OF CARE.CL IN EASY REACH,BED IN LOW POSITION.
--- NOTE | 2019-12-10 08:30 | NUR ---
ISOLATION FOR DROPLET PRECAUTIONS.
[2019-12-10 08:40] LABS: BASOPHILS 0.1 % (0-2); EOSINOPHILS 1.4 % (0-7); HEMATOCRIT 35.6 % (36.0-48.0); HEMOGLOBIN 10.4 g/dL (12-16); IMMATURE GRANULOCYTES 0.4 % (0-5); LYMPHOCYTES 6.4 % (15-50); MCH 29.1 pg (26.0-34.0); MCHC 29.2 g/dL (31.0-37.0); MCV 99.7 fL (80.0-100.0); MEAN PLATELET VOLUME 10.6 fL (7.4-10.4); MONOCYTES 6.4 % (2-11); NEUTROPHILS 85.3 % (40-80); PLATELET COUNT 285 10x3/uL (130-400); RBC 3.57 10x6/uL (4.00-5.40); RDW 15.2 % (11.5-14.5); WBC 16.7 10x3/uL (4.8-10.8)
[2019-12-10 08:50] LABS: ANION GAP 10.7 mmol/L (8-16); CALCIUM 9.2 mg/dL (8.5-10.1); CARBON DIOXIDE 29.8 mmol/L (21.0-32.0); CREATININE - SERUM 1.1 mg/dL (0.6-1.3); POTASSIUM - SERUM 4.5 mmol/L (3.5-5.1)
--- NOTE | 2019-12-10 09:48 | NUR ---
PT IS BEING TESTED FOR COVID. SHE WILL REMAIN ON REHAB FLOOR WITH DOOR SHUT, SPECIFIC ISOLATION ON DOOR WITH DROPLET PRECAUTIONS, ONLY ONE STAFF MEMBER WILL GO IN AND OUT. STAFF EXPLAINED PRECAUTIONS TO PT AND SHE STATED UNDERSTANDING. DR LORA NOTIFIED, ALESSANDRA PAZ, INFECTION CONTROL NURSE NOTIFIED, ROLAND WISE DATAPOWER CONSULTANT DIRECTOR NOTIFIED, ALL REHAB STAFF NOTIFIED.
--- NOTE | 2019-12-10 14:00 | NUR ---
TEMP 99.9.ORAL.REMAINS IN ISOLATION FOR DROPLET PRECAUTIONS.
--- NOTE | 2019-12-10 16:37 | NUR ---
REPORT BACK,NEGATIVE FOR COVID 19.PATIENT INFORMED OF RESULTS.
[2019-12-10 19:34] VITALS: BP 93/41
--- NOTE | 2019-12-10 19:42 | NUR ---
AWAKE AND ALERT. RESTING IN BED. ASSISTED TO BEDSIDE COMMODE AND BACK TO BED. RESPIRATIONS UNLABORED. NO DISTRESS NOTED. CALL LIGHT IN REACH.
--- NOTE | 2019-12-11 01:53 | NUR ---
SLEEPING WITH RESPIRATIONS UNLABORED. NO DISTRESS NOTED.
--- NOTE | 2019-12-11 04:50 | NUR ---
QUIET HOURS. NO ACUTE CHANGES IN CONDITION THIS SHIFT. RESTING IN BED WITH NO DISTRESS NOTED.
--- NOTE | 2019-12-11 07:15 | NUR ---
A/A/OX4. DENIES ANY PAIN OR DISCOMFORT REQUIRING MED AT THIS TIME. NO REQUESTS VOICED. SITTING UP IN BED READING, SIDERAILS UP X 2, CALL LIGHT IN REACH AND BED IN LOW LOCKED POSITION. RESP EVEN AND UNLABORED WITH 02 ON @ 2 L/M PER N/C. DRESSING TO LEFT ANKLE C/D/I. WILL CONTINUE POC.
[2019-12-11 07:48] VITALS: BP 94/63
--- NOTE | 2019-12-11 11:00 | NUR ---
I have reviewed this patient and I concur with the Shift Assessment completed by the Licensed Practical Nurse today this shift.
--- NOTE | 2019-12-11 11:56 | NUR ---
DRESSING TO LEFT ANKLE CHANGED. ZIP TIES INTACT, SOME REDNESS NOTED AT INCISION SITES.
[2019-12-11 19:22] VITALS: BP 132/71
[2019-12-11 19:27] VITALS: BP 109/49
--- NOTE | 2019-12-11 19:31 | NUR ---
AWAKE AND ALERT. RESTING IN BED WITH RESPIRAITONS UNLABORED. O2/2L ON PER NASAL CANNULA. DRESSING TO LEFT ANKLE DRY AND INTACT. NO DISTRESS NOTED. CALL LIGHT IN REACH.
--- NOTE | 2019-12-12 00:25 | NUR ---
RESTING IN BED WITH EYES CLOSED AND RESPIRATIONS UNLABORED. NO DISTRESS NOTED.
--- NOTE | 2019-12-12 05:06 | NUR ---
QUIET HOURS. NO ACUTE CHANGES IN CONDITION THIS SHIFT. RESTING IN BED WITH NO DISTRESS NOTED.
--- NOTE | 2019-12-12 07:03 | NUR ---
A/A/OX3. RESTING QUIETLY IN BED WATCHING TV. STATES PAIN LEVEL AT 5/10 AND REQUESTS PAIN PILL BE GIVEN WITH HER MORNING MEDS PRIOR TO HER SHOWER. 02 ON PER N/C AT 2 L/M WITH RESP EVEN AND UNLABORED. COUGH NON PRODUCTIVE AT THIS TIME. SIDERAILS UP X 2, CALL LIGHT IN REACH AND BED IN LOW LOCKED POSITION. WILL CONTINUE POC.
--- NOTE | 2019-12-12 07:52 | NUR ---
I have reviewed this patient and I concur with the Shift Assessment completed by the Licensed Practical Nurse today this shift.
[2019-12-12 07:56] VITALS: BP 100/61
--- NOTE | 2019-12-12 10:30 | NUR ---
UP TO BATHROOM VIA W/C FOR SHOWER. TOLERATED WELL DOING MOST OF IT HERSELF. ASSISTED TO BEDSIDE CHAIR AND RESTING WELL WITH 02 ON PER N/C AT 2 L/M. NO C/O ANY SOB DURING SHOWER AND NONE OBSERVED FOLLOWING SHOWER. DRESSING TO LEFT ANKLE CHANGED WITH SOME REDNESS NOTED AROUND THE INNER SIDE OF ANKLE INCISION. SMALL AMT YELLOW DRAINAGE NOTED ON DRESSING THAT WAS REMOVED.
[2019-12-12 19:47] VITALS: BP 122/73
--- NOTE | 2019-12-12 19:51 | NUR ---
AWAKE AND ALERT. UP IN WHEELCHAIR BRUSHING TEETH AND GETTING READY FOR BED. AFEBRILE. DRESSING INTACT TO LEFT ANKLE. NO ACUTE DISTRESS NOTED. CALL LIGHT IN REACH.
--- NOTE | 2019-12-13 00:22 | NUR ---
SLEEPING WITH NO DISTRESS NOTED.
--- NOTE | 2019-12-13 05:14 | NUR ---
QUIET HOURS. NO ACUTE CHANGES IN CONDITION THIS SHIFT. NO DISTRESS NOTED.
[2019-12-13 07:14] LABS: ANION GAP 10.1 mmol/L (8-16); CALCIUM 9.6 mg/dL (8.5-10.1); CARBON DIOXIDE 30.6 mmol/L (21.0-32.0); CREATININE - SERUM 1.1 mg/dL (0.6-1.3); POTASSIUM - SERUM 4.7 mmol/L (3.5-5.1)
[2019-12-13 07:29] LABS: BASOPHILS 0.5 % (0-2); EOSINOPHILS 3.8 % (0-7); HEMATOCRIT 34.6 % (36.0-48.0); HEMOGLOBIN 10.3 g/dL (12-16); IMMATURE GRANULOCYTES 0.9 % (0-5); LYMPHOCYTES 22.2 % (15-50); MCH 29.6 pg (26.0-34.0); MCHC 29.8 g/dL (31.0-37.0); MCV 99.4 fL (80.0-100.0); MEAN PLATELET VOLUME 10.9 fL (7.4-10.4); MONOCYTES 13.4 % (2-11); NEUTROPHILS 59.2 % (40-80); PLATELET COUNT 298 10x3/uL (130-400); RBC 3.48 10x6/uL (4.00-5.40); RDW 15.1 % (11.5-14.5); WBC 9.8 10x3/uL (4.8-10.8)
[2019-12-13 07:30] VITALS: BP 118/62
--- NOTE | 2019-12-13 07:45 | NUR ---
AWAKE,DENIES NEEDS.VS TAKEN,ASSESSMENT COMPLETED.DRESSING INTACT TO LEFT FOOT/ANKLE WITH IMPROVEMENT NOTED IN REDDNESS AND BRUISING.DRESSING CLEAN AND DRY.WILL CONTINUE WITH CURRENT PLAN OF CARE.CL IN EASY REACH,BED IN LOW POSITION.
--- NOTE | 2019-12-13 13:41 | NUR ---
Nutrition follow-up: Pt remains assessed at low nutritional risk. Pt receiving a diabetic consistent CHO diet with po intake 100% of most meals +BM Labs reviewed WT: 219# RDN following.
--- NOTE | 2019-12-13 23:56 | NUR ---
REC'D. CHGE OF SHIFTIN BED ASSISTED TO BATHROOM CHARLENE. WELL MINIMAL ASSIST.CHARLENE WELL.DRSG LEFT FOOT DRY AND INTACT.UP ON PILLOW. MINIMAL AMT. SWELLING TOES WITH SOME BRUISING TOP OF FOOT, WIGGLES TOESFLEXES ANKLE GOOD PEDAL PULSE.WILL CONTINUE TO MONITOR FOR ANY CHGES IN NEUROVASCULAR STATUS AND FOLLOW CURRENT PLAN OF CARE
[2019-12-14 07:30] VITALS: BP 108/43
--- NOTE | 2019-12-14 07:45 | NUR ---
AROUSES EASILY.DENIES NEEDS.VS TAKEN AND ASSESSMENT COMPLETED.DRESSING INTACT TO LEFT FOOT AND ANKLE CLEAN AND DRY.WILL CONTINUE WITH CURRENT PLAN OF CARE.CL IN EASY REACH,BED IN LOW POSITION.
[2019-12-14 14:22] LABS: BILIRUBIN NEGATIVE (NEGATIVE); GLUCOSE NEGATIVE (NEGATIVE); KETONE NEGATIVE (NEGATIVE); NITRITE NEGATIVE (NEGATIVE); UROBILINOGEN NORMAL (NORMAL)
[2019-12-14 14:23] LABS: BACTERIA NONE SEEN /hpf (NEGATIVE); EPITHELIAL CELLS RARE /hpf (0-5); RED CELLS - URINE NONE SEEN /hpf (0-5); WHITE CELLS - URINE OCC /hpf (NEGATIVE)
--- NOTE | 2019-12-14 18:55 | NUR ---
BEDSIDE REPORT COMPLETE. PT SITTING UP IN CHAIR. ALERT AND ORIENTED X4. DENIES ANY NEEDS OR PAIN. NO SIGNS OF ACUTE DISTRESS NOTED. WALKING BOOT ON LEFT ANKLE. CALL LIGHT WITHIN REACH. FALL PRECAUTIONS IN PLACE. CPOC
[2019-12-14 20:20] VITALS: BP 124/63
--- NOTE | 2019-12-14 23:44 | NUR ---
PT LYING IN BED SUPINE EYES CLOSED RESTING. HOB ELEVATED. RR EVEN AND UNLABORED. CALL LIGHT WITHIN REACH. FALL PRECAUTIONS IN PLACE. WILL CONTINUE TO MONITOR
--- NOTE | 2019-12-15 03:44 | NUR ---
PT LYING IN BED EYES CLOSED RESTING COMFORTABLY. HOB ELEVATED. RR EVEN AND UNLABORED. CALL LIGHT WITHIN REACH. FALL PRECAUTIONS IN PLACE. WILL CONTINUE TO MONITOR
--- NOTE | 2019-12-15 06:30 | NUR ---
PT LYING IN BED AWAKE AND ALERT. DENIES ANY NEEDS OR PAIN. FSBS 103. CALL LIGHT AND WATER WITHIN REACH. FALL PRECAUTIONS IN PLACE. CPOC
--- NOTE | 2019-12-15 07:15 | NUR ---
IN BED.CL IN REACH.DENIES NEEDS.
--- NOTE | 2019-12-15 07:21 | NUR ---
A/A/OX4. SITTING UP IN BED READING AND DENIES ANY PAIN OR DISCOMFORT AT PRESENT TIME. NO REQIESTS VOICED. RESP EVEN AND UNLABORED WITH 02 ON PER N/C AT 2L/M. SIDERAILS UP X 2, CALL LIGHT IN REACH AND BED IN LOW LOCKED POSITION. DRESSINGS TO BOTH INCISIONS C/D/I.
[2019-12-15 07:23] LABS: BASOPHILS 0.4 % (0-2); EOSINOPHILS 4.2 % (0-7); HEMATOCRIT 33.2 % (36.0-48.0); HEMOGLOBIN 9.6 g/dL (12-16); IMMATURE GRANULOCYTES 1.8 % (0-5); LYMPHOCYTES 43.4 % (15-50); MCH 28.7 pg (26.0-34.0); MCHC 28.9 g/dL (31.0-37.0); MCV 99.4 fL (80.0-100.0); MEAN PLATELET VOLUME 9.6 fL (7.4-10.4); MONOCYTES 10.7 % (2-11); NEUTROPHILS 39.5 % (40-80); PLATELET COUNT 333 10x3/uL (130-400); RBC 3.34 10x6/uL (4.00-5.40); WBC 7.7 10x3/uL (4.8-10.8)
[2019-12-15 07:36] LABS: ANION GAP 7.7 mmol/L (8-16); CALCIUM 9.7 mg/dL (8.5-10.1); CARBON DIOXIDE 35.6 mmol/L (21.0-32.0); POTASSIUM - SERUM 4.3 mmol/L (3.5-5.1)
--- NOTE | 2019-12-15 08:01 | NUR ---
I have reviewed this patient and I concur with the Shift Assessment completed by the Licensed Practical Nurse today this shift.
--- NOTE | 2019-12-15 09:15 | NUR ---
ASST WITH SHOWER BY OT AND TOLERATED WELL. DRESSING TO BOTH INCISIONS LEFT ANKLE CHANGED WITH NO DRAINAGE NOTED.
[2019-12-15 12:02] VITALS: BP 007/77
--- NOTE | 2019-12-15 13:50 | NUR ---
CARE TEAM MEETING: PATIENT ATTENDED THE MEETING. HER QUESTIONS AND CONCERNS WERE ADDRESSED. A WHEELCHAIR HAS BEEN ORDER FOR PATIENT HOME USE. HER TENATIVE DISCHARGE DATE IS 12/16/19. WILL CONTINUE TO FOLLOW WITH PATIENT.
--- NOTE | 2019-12-15 19:21 | NUR ---
AWAKE AND ALERT. RESTING IN BED WITH NO DISTRESS NOTED. LEFT ANKLE INCISION SITE SLIGHTLY RED. ELEVATED ON PILLOW. NO ACUTE DISTRESS NOTED. CALL LIGHT IN REACH.
[2019-12-15 20:36] VITALS: BP 122/64
--- NOTE | 2019-12-16 01:12 | NUR ---
SLEEPING WITH NO DISTRESS NOTED.
--- NOTE | 2019-12-16 05:12 | NUR ---
QUIET HOURS. NO ACUTE CHANGES IN CONDITION THIS SHIFT. NO DISTRESS NOTED.
--- NOTE | 2019-12-16 07:30 | NUR ---
A/A/OX4. RECLINING IN BED AND WATCHING TV. DENIES ANY PAIN OR DISCOMFORT AT THIS TIME AND VOICES NO REQUESTS. SIDERAILS UP X 2, CALL LIGHT IN REACH AND BED IN LOW, LOCKED POSITION. INCISION SITES TO OUTER AND INNER LEFT ANKLE C/D/I.
[2019-12-16 09:25] VITALS: BP 104/63
--- NOTE | 2019-12-16 10:10 | NUR ---
PRN PAIN MEDICATION GIVEN FOR LEFT ANKLE PAIN PER PATIENT REQUEST
--- NOTE | 2019-12-16 13:47 | NUR ---
I have reviewed this patient and I concur with the Shift Assessment completed by the Licensed Practical Nurse today this shift.
--- NOTE | 2019-12-16 19:02 | NUR ---
AWAKE AND ALERT. IN WHEELCHAIR IN ROOM WITH WALKING BOOT ON. RESPIRATIONS UNLABORED. NO DISTRESS NOTED.
[2019-12-16 19:35] VITALS: BP 124/72
--- NOTE | 2019-12-16 22:30 | NUR ---
LEFT ANKLE INCISIONS CLEANED AND DRESSINGS CHANGED. MEDICATED FOR PAIN. SEE MAR.
--- NOTE | 2019-12-17 05:11 | NUR ---
QUIET HOURS. NO ACUTE CHANGES IN CONDITION THIS SHIFT. RESTING IN BED WITH NO DISTRESS NOTED.
[2019-12-17 07:39] LABS: BASOPHILS 0.5 % (0-2); EOSINOPHILS 4.1 % (0-7); HEMATOCRIT 32.3 % (36.0-48.0); HEMOGLOBIN 9.5 g/dL (12-16); IMMATURE GRANULOCYTES 1.1 % (0-5); LYMPHOCYTES 39.1 % (15-50); MCH 28.9 pg (26.0-34.0); MCHC 29.4 g/dL (31.0-37.0); MCV 98.2 fL (80.0-100.0); MEAN PLATELET VOLUME 9.4 fL (7.4-10.4); MONOCYTES 9.4 % (2-11); NEUTROPHILS 45.8 % (40-80); PLATELET COUNT 313 10x3/uL (130-400); RBC 3.29 10x6/uL (4.00-5.40); RDW 14.8 % (11.5-14.5); WBC 7.4 10x3/uL (4.8-10.8)
[2019-12-17 08:08] LABS: ANION GAP 8.7 mmol/L (8-16); CALCIUM 9.1 mg/dL (8.5-10.1); CARBON DIOXIDE 31.4 mmol/L (21.0-32.0); CREATININE - SERUM 1.1 mg/dL (0.6-1.3); POTASSIUM - SERUM 4.1 mmol/L (3.5-5.1)
[2019-12-17 08:12] VITALS: BP 116/57
--- NOTE | 2019-12-17 08:22 | NUR ---
PATIENT UP IN W/C, DENIES ANY NEEDS AT THIS TIME, C/L AND FLUIDS IN REACH.
[2019-12-17] MEDS ORDERED: HYDROCODON-ACE1 EA10 PO (08:45)
--- NOTE | 2019-12-17 08:46 | RHP ---
PATIENT: SOFÍA COREAS MEDICAL RECORD: [id number] ACCOUNT: [id number] LOCATION:[facility] : 52 ADMISSION DATE: 12/03/19 REHABILITATION HISTORY AND PHYSICAL EXAMINATION POST ADMISSION PHYSICIAN EXAMINATION ADMITTING DIAGNOSIS: Toxic encephalopathy. HISTORY OF PRESENT ILLNESS: The patient is a 69-year-old female patient who presented to the ED with complaints of left ankle pain and inability to bear weight after she fell at home. She apparently was in the bathroom, she fell from a standing position. She denied any syncope or any other results. X-ray showed a bimalleolar left ankle fracture. Blood pressure was noted to be somewhat low upon admission. She did have a UA that showed 2+ leukocyte esterase. The patient had orthopedic surgery consult in the ED and a left ankle open reduction internal fixation for a left ankle bimalleolar fracture with subluxation. She has had nephrology consult during her stay. She has had some acute confusion post-Dilaudid medication. She needs to be monitored closely for mental status change due to acute confusion, supplemental O2 requirements. She has a need for 6 liters of O2, but is now down to 2. She has got home oxygen set up, but she needs pain control. She is getting respiratory treatments. We will monitor her blood pressure closely, monitor her fingerstick blood sugars. She has got decreased activity tolerance, weakness, electrolyte abnormalities. She has got a decreased quality of life, decreased range of motion, decreased strength, limited safety awareness. She has got a risk for falls, cues for equipment, low endurance, unsteady gait and balance. She fatigues easily. She has got inability to care for herself and these are all barriers to her discharge home at this time. She lives at home with a friend, was independent with ADLs and mobility prior to this, using a single point cane at times. She is currently set up for max assist for ADLs, mod to max assist for mobility. She and her family plan to return home at her prior level of functioning or better and be set up for home health. COMORBIDITIES: Include weakness, bimalleolar fracture, obesity, UTI, anemia, diabetes, mental status changes, encephalopathy toxic, hypotension, hyperlipidemia and COPD. PAST MEDICAL HISTORY: Significant for diabetes, hypertension, COPD, depression, hyperlipidemia, asthma, obesity. PAST SURGICAL HISTORY: Includes hysterectomy, tonsillectomy, umbilical hernia repair. She has had a right eye cataract and gastric bypass. ALLERGIES: CEDAR. CURRENT MEDICATIONS: Include metformin 1000 mg b.i.d. with meals, she is on Ditropan 10 mg daily, Actos 30 mg daily, multivitamin daily, Lactinex 1 tab daily, she is on Celexa 40 mg daily, she is on Brovana 15 mcg b.i.d., budesonide 0.5 mg b.i.d., Tylenol 650 every 6 hours p.r.n., Lyrica 75 mg b.i.d., Mevacor 20 mg at bedtime and she is on aspirin chewable 81 mg daily. HABITS: No alcohol or tobacco use. FAMILY HISTORY: Noncontributory. HISTORY AND PHYSICAL [id number] LYUDMILASOFÍA SOCIAL HISTORY: As above. PHYSICAL EXAMINATION: VITAL SIGNS: Stable, afebrile. GENERAL: A somewhat obese female in no acute distress upon exam. HEENT: Normocephalic and atraumatic. Mucosa moist. NECK: Supple. No lymphadenopathy. LUNGS: Clear in upper nunes. No wheezing, rhonchi or rales. HEART: Regular rate and rhythm. No murmurs, rubs or gallops. ABDOMEN: Soft, benign, noted to be obese. EXTREMITIES: Does have normal postop swelling. NEUROLOGIC: She is intact. LABORATORY DATA: White count is 8.1, H&H of 10 and 35, and platelet count is 212. Sodium 142, potassium 4.3, BUN and creatinine of 21 and 1.0, and blood sugar is noted to be 110. ASSESSMENT: This is a 69-year-old female patient admitted to rehab with a working diagnosis of toxic encephalopathy status post open reduction internal fixation of a bimalleolar fracture. The patient has potential to make improvement. We instituted the following multidisciplinary therapies including, but not limited to physical, occupational, respiratory, speech, nutritional services, prosthetics and orthotics. Given her complex medical condition and risks for more complications, rehabilitation services cannot be provided at a low level of care such a skilled nurse facility. PLAN: 1. Admit to [facility] for intensive inpatient therapy to include the following disciplines: A. Physical therapy to improve gait, all transfer skills and bed mobility to a modified independent level. B. Occupational therapy to improve activities of daily living. C. Case management to assist with discharge planning and placement options. D. Nutrition to assist with nutritional needs. E. Rehabilitation nursing to assist in monitoring the patient's underlying medical conditions and to assist with any type of bowel or bladder management. 2. The patient's current medication and medical care will be continued. 3. The patient will be placed on standard fall precautions. 4. The patient's estimated length of stay is approximately 7-10 days. 5. We will discuss the patient during care team staff meeting this week. TRANSINT:[id number] Voice Confirmation ID: [id number] DOCUMENT ID: [id number] LJ notes whether there has been none or any medical/functional change since admission: - No change since preadmission screen. LJ attests patient continues to be appropriate for IRF: - Continues to be appropriate. HISTORY AND PHYSICAL [id number] SOFÍA COREAS,KEERTHI PEPE MD at 0846 CC: [id number] DICTATION DATE: 12/04/19 1307 [facility] OR WORK DISPATCHER: 12/04/19 1338 ADM IN [id number] [place] [address]
--- NOTE | 2019-12-17 09:23 | NUR ---
PATIENT DISCHARGING HOME TODAY. [facility] WILL PROVIDE THERAPY AT HOME. [facility] WILL DELIVER WHEELCHAIR, BEDSIDE COMMODE AND A SHOWER STOOL. DR. ALANIS 12/27/19 @ 11:40, DR. SALAZAR 12/22/19 @ 11:00, RENE SIGNED FOR HOME HEALTH, IMM SERVED AND EXPLAINED, ONE GIVEN TO PATIENT AND COPY FILED IN CHART. NO COMPARE DATA REVIEWED PATIENT IS WANTING [facility]. [employer] INSTRUCTIONS FAXED TO PCP, HOME HEALTH AND REVIEWED WITH PATIENT PER PRIMARY NURSE.
--- NOTE | 2019-12-17 09:44 | NUR ---
ASSESSMENT COMPLETE, PT DISCHARGE TODAY, DENIES ANY NEEDS AT THIS TIME, C/L AND FLUIDS IN REAWCH.
--- NOTE | 2019-12-17 12:33 | NUR ---
PATIENT D/C TO HOME VIA W/C WITH FAMILY, ALL MEDS REVIEWED AND REFUSED ORDERED MEDS HAS THEM AT AT HOME, REVIEWED ALL FOLLOW UP APPOINTMENTS AND HOME HEALTH CARE SERVICES. PERSCRIPTIONS WITH PATIENT.
== END 2019-12-17 12:30 | disposition home health service (06) | DRG 91 ==
LOC: D.REHAB 16:38
PROVIDERS: ADMIT Emergency Medicine; ATTEND Emergency Medicine
DX: G92 Toxic encephalopathy (principal); N17.0 Acute kidney failure with tubular necrosis; B37.49 Other urogenital candidiasis; N39.0 Urinary tract infection, site not specified; S82.842D Displaced bimalleolar fracture of left lower leg, subsequent encounter for closed fracture with routine healing; E11.9 Type 2 diabetes mellitus without complications; I95.9 Hypotension, unspecified; E78.5 Hyperlipidemia, unspecified; J44.9 Chronic obstructive pulmonary disease, unspecified; D64.9 Anemia, unspecified; R53.1 Weakness; E66.9 Obesity, unspecified

== ENCOUNTER → 2020-02-28 12:26 | Outpatient (CLI) | payer MEDICARE, OTHER ==
[2019-12-04 09:02] VITALS: BMI 38.9
[~2020-02-28 12:26] MED LIST changes: +HYDROCODON-ACE1 EA10 PO
== END | disposition home or self-care (01) ==
LOC: D.LAB 12:26
PROVIDERS: ATTEND Internal Medicine Pulmonary Disease
DX: Z11.59 Encounter for screening for other viral diseases (principal)

== ENCOUNTER → 2020-02-29 08:15 | Outpatient (CLI) | payer MEDICARE, OTHER ==
[2019-12-04 09:02] VITALS: BMI 38.9
== END | disposition home or self-care (01) ==
LOC: D.RT 08:00
PROVIDERS: ATTEND Internal Medicine Pulmonary Disease
DX: J44.9 Chronic obstructive pulmonary disease, unspecified (principal); Z11.59 Encounter for screening for other viral diseases

== ENCOUNTER → 2020-05-08 19:52 | Outpatient (CLI) | payer MEDICARE, OTHER ==
[2019-12-04 09:02] VITALS: BMI 38.9
[2020-05-08 22:43] LABS: BASOPHILS 0.3 % (0-2); EOSINOPHILS 2.2 % (0-7); HEMATOCRIT 37.6 % (36.0-48.0); HEMOGLOBIN 11.5 g/dL (12-16); IMMATURE GRANULOCYTES 0.3 % (0-5); LYMPHOCYTES 31.2 % (15-50); MCH 31.9 pg (26.0-34.0); MCHC 30.6 g/dL (31.0-37.0); MCV 104.2 fL (80.0-100.0); MEAN PLATELET VOLUME 10.1 fL (7.4-10.4); PLATELET COUNT 264 10x3/uL (130-400); RBC 3.61 10x6/uL (4.00-5.40); RDW 14.8 % (11.5-14.5); WBC 8.6 10x3/uL (4.8-10.8)
== END | disposition home or self-care (01) ==
LOC: D.LABREF 19:52
PROVIDERS: ATTEND Internal Medicine Pulmonary Disease
DX: J44.9 Chronic obstructive pulmonary disease, unspecified (principal)

== ENCOUNTER → 2020-09-21 17:55 | Outpatient (CLI) | payer MEDICARE, OTHER ==
[2020-08-09 14:18] VITALS: BMI 31.8
[~2020-09-21 17:55] MED LIST changes: +DIFLUCAN100 MG PO; +FLAGYL500 MG PO; +GUAIFEN-CODEINE10 ML PO; +LEVOFLOXACIN500 MG PO; +LOTENSIN20 MG PO; +MEDROL DOSE PACK4 MG PO; +NU-IRON 150150 MG PO; +PIOGLITAZONE15 MG PO; +PREDNISONE10 MG PO; +TRELEGY ELLIPT1 EACH PF; +ZOVIRAX200 MG PO
[2020-09-21 18:32] LABS: BASOPHILS 0.3 % (0-2); EOSINOPHILS 1.9 % (0-7); HEMATOCRIT 35.4 % (36.0-48.0); HEMOGLOBIN 10.4 g/dL (12-16); IMMATURE GRANULOCYTES 0.4 % (0-5); LYMPHOCYTES 29.5 % (15-50); MCH 30.2 pg (26.0-34.0); MCHC 29.4 g/dL (31.0-37.0); MCV 102.9 fL (80.0-100.0); MEAN PLATELET VOLUME 9.5 fL (7.4-10.4); MONOCYTES 12.3 % (2-11); NEUTROPHIL ABS# 4.34 10x3/uL (1.56-6.13); NEUTROPHILS 55.6 % (40-80); PLATELET COUNT 303 10x3/uL (130-400); RBC 3.44 10x6/uL (4.00-5.40); RDW 17.7 % (11.5-14.5); WBC 7.8 10x3/uL (4.8-10.8)
== END | disposition home or self-care (01) ==
LOC: D.LABREF 17:55
PROVIDERS: ATTEND Internal Medicine Pulmonary Disease
DX: J45.909 Unspecified asthma, uncomplicated (principal)

== ENCOUNTER → 2020-12-07 13:41 | Outpatient (CLI) | payer MEDICARE, OTHER ==
[2020-08-09 14:18] VITALS: BMI 31.8
== END | disposition home or self-care (01) ==
LOC: D.LAB 13:41
PROVIDERS: ATTEND Internal Medicine Pulmonary Disease
DX: Z11.52 Encounter for screening for COVID-19 (principal)

== ENCOUNTER → 2020-12-12 09:28 | Outpatient (CLI) | payer MEDICARE, OTHER ==
[2020-08-09 14:18] VITALS: BMI 31.8
== END | disposition home or self-care (01) ==
LOC: D.RAD 10-17 15:15 → D.RT 10-17 15:30 → D.RAD 09:00
PROVIDERS: ATTEND Internal Medicine Pulmonary Disease
DX: J44.9 Chronic obstructive pulmonary disease, unspecified (principal)